=== PATIENT | female | born 1970 | race Caucasian/White ===

== ENCOUNTER 2024-05-15 14:00 | Inpatient (IN) | payer BC, SELFPAY ==
[2024-05-15] VITALS (7 sets, daily range): BP systolic 108–141; BP diastolic 65–91; BMI 63.3
--- NOTE | 2024-05-15 12:23 | ED.GENMED ---
History of Present Illness
General
Chief Complaint: Catheter/Tube Problem
Source: patient
Time Seen by Provider: 05/15/24 12:04
History of Present Illness
History of Present Illness:
Patient sent to the emergency room from [facility] for concern of infection around her dialysis port. Patient states she feels at her recent baseline. Patient began receiving dialysis in September. Dialysis was initiated at [facility] where her
dialysis port was placed. She is unsure why she has not yet had any procedures to develop a AV fistula. Patient denies any fever.
Phy Exam
Physical Exam
Physical Exam:
General: Awake, Alert, Oriented X3. Very high BMI. Appears chronically ill but stable
Vitals: unremarkable
Head: Atraumatic
Eyes: Pupils equal, EOMI
Throat: Airway intact, no exudates, dry mucosa
Neck: Trachea midline
Chest: rigth sided tunnled dialysis cath with surrounding erythema and signicatn tenderness to palpation
Lungs: Clear and equal b/l
Heart: Regular rate, no murmurs
Abd: Soft, Nontender, No pulsatile mass
Neuro: Nonfocal
Skin: Warm, dry, eczematous rash
Extremities: pulses equal b/l, no edema
Sepsis
Sepsis Screening
Sepsis Assessment: Sepsis Ruled Out
Sepsis Screen
Sepsis Screen: Sepsis Ruled Out
Date: 05/15/24
Time: 14:03
Course
Orders/Labs/Results
Orders:
Orders
05/15/24 12:24
Electrocardiogram (*1) Urgent
Reason for Study: QTc Monitoring
EKG- Treatment ONCE
05/15/24 13:15
Basic Metabolic Panel Urgent
Complete Blood Count/With Diff Urgent
Magnesium Urgent
Phos [Phosphorus] Urgent
Blood Culture Routine
DIANE Source: Blood/Venous
Specimen Description:
05/15/24 13:18
Vancomycin [Vancocin] 1,500 mg 0.9% Sodium Chloride 500 ml [Nss] 500 ml IV NOW
05/15/24 13:27
Admit/Transfer Patient As Directed
Co-Sign Provider:
Level of Care: Inpatient admission
Assign to:: Telemetry
Physician / Group: mt
Diagnosis: MRSA wound infection
Reason for Telemetry: Arrhythmia
Date to Stop Telemetry: 05/18/24
Time to Stop Telemetry: 11:00
Reason for Hospitalization: MRSA wound infection
Expected length of stay greater than two midnights?: Yes
ELOS- Estimated Length of Stay in days: 3
I certify the patient meets the requirements for IP care: Yes
PRN Pain Medication Management As Directed
May give lesser potent ordered pain med per pt: Yes
preference::
Protocol:: Medication orders for pain may be administered in a
manner that supports deferring to patient preference
when the pt is:
- Requesting an ordered lesser potent pain medication.
Least to most potent pain medications are defined
as: acetaminophen < NSAID < tramadol < opioids
(morphine, oxycodone, hydromorphone).
- Requesting a lesser dose of the same medication IF
ORDERED.
- Requesting a less intrusive route of administration
if both routes are prescribed by the provider (PO <
IV).
05/15/24 13:28
Code Status As Directed
Resuscitation Status: Do not resuscitate
Reached after discussion with pt or family/Healthcare POA: Yes
05/15/24 13:29
DNR Bracelet Application ONCE
05/15/24 13:49
Blood Culture Routine
DIANE Source: Blood/Venous
Specimen Description:
05/18/24 11:00
DC Protocol for Telemetry ONCE
Abnormal Lab Results
05/15/24
13:15
RBC 4.00 L 10^6/uL
(4.20-5.40)
Hgb 11.5 L g/dL
(12.0-16.0)
MCHC 30.9 L g/dL
(33.0-37.0)
RDW 15.9 H %
(11.5-14.5)
Absolute Lymphs (auto) 1.0 L 10^3/uL
(1.2-3.4)
Immature Gran % 0.6 H %
(0-0.5)
Lymphocytes % 13.7 L %
(20.5-51.1)
Eosinophils % 9.1 H %
(0-6)
05/15/24 13:15
Vital Signs
Initial and Last Documented VS:
Initial Vital Signs
Temp Pulse Resp BP Pulse Ox
96.3 F L 101 20 127/78 98
05/15/24 12:02 05/15/24 12:02 05/15/24 12:02 05/15/24 12:02 05/15/24 12:02
Last Documented Vital Signs
Temp Pulse Resp BP Pulse Ox
96.3 F L 98 20 129/91 98
05/15/24 12:02 05/15/24 13:15 05/15/24 12:02 05/15/24 13:00 05/15/24 13:15
MDM/Problems Addressed
Differential Diagnosis Includes:
Cutaneous infection around port, actual infected port, bacteremia
MDM/Problems Addressed:
Patient arrives form reviewed with report of a MRSA infection at the site of her tunneled dialysis catheter. She is afebrile and feels well. I communicated with interventional radiology to see if they would be able to replace this port today. IR
states they would be uncomfortable placing a tunneled catheter at this time without negative blood cultures. They could place a temporary dialysis catheter if he were to need urgent dialysis but they would prefer to hold off on putting any catheter
until she has negative cultures. Currently the patient does not seem to have indications for emergent dialysis. She is not hypoxic or in respiratory distress. She seems to get a baseline. Labs are pending. Patient will require hospitalization
and so I discussed with the hospitalist.
*Pulse Oximetry
Patient hypoxic: no
*Critical Care Note
Total Time (30-74mins, 75-104mins- exclusive of procedures): Not Applicable
ED Attending Note
-
Portions of this chart may have been created with voice recognition software.� Occasional wrong word or��sound alike� substitutions may have occurred due to the inherent limitations of voice recognition software.
Discharge Plan
Departure
Patient Disposition: Admit
Date of Disposition: 05/15/24
Time of Disposition: 13:12
Admit to: Med/Surg
Presentation/result/management discussed w/ accepting MD/DO: Hospitalist
Condition: Fair
Discharge Problem:
Infection of hemodialysis catheter
Interventions
Interventions:
*Risk Screen - Suicide Last Done: 05/15/24 12:12
*General Assessment Last Done: 05/15/24 12:12
*Neglect/Abuse Screening Last Done: 05/15/24 12:12
ED- Fall Risk Assessment Last Done: 05/15/24 12:14
*ED COVID-19 Vaccine History Last Done: 05/15/24 12:12
LA-Kiofya-Uyzjcntrxn Assessment Last Done: 05/15/24 12:15
ED-Female Genitourinary Assessment Last Done: 05/15/24 12:15
--- NOTE | 2024-05-15 13:04 | HPS.HSE ---
Family Physician
-
Family Physician:
Chief Complaint
-
Right chest wall port infection
History of Present Illness
54-year-old with past medical history for A-fib, hypertension, end-stage renal disease on dialysis Monday, anemia, CHF, hypothyroidism, hide type 2 diabetes, depression, GERD presented to us with right chest wall port infection.
Patient stated he was noted to have red and drainage at the site a week ago. they cultured it and noted to have MRSA at the port site. patient was started on Cipro for past two days. denied fever, chills, chest pain, sob. denied FRANK, dizzy or
syncope. denied abdominal pain,n,v,d. denied dysuria or hematuria.
She was noted to left lower extremities redness, which is chronic for her
Medical History
Past Medical History
Past Medical History: Reports Other
Additional Past Medical History:
A-fib
Hypertension
End-stage renal disease
Anemia
CHF
Hypothyroidism
Type 2 diabetes
Depression
GERD
Past Surgical History: Reports None
Social History
Tobacco: Non-smoker
Alcohol: None
Drug: None
Personal: Single
Living: [facility]
Family History
Family History: Not pertinent
Allergies / Home Medications
Allergies reflects when Allergies were last updated in [facility].
Home Medications with original date entered in [facility]
Allergy/Medication List:
Allergies
Allergy/AdvReac Type Severity Reaction Status Date / Time
No Known Allergies Allergy Unverified 05/15/24 12:12
Review of Systems
-
Constitutional: Reports No Symptoms
EENT: Reports No Symptoms
Respiratory: Reports No Symptoms
Cardiac: Reports No Symptoms
Abdomen/GI: Reports No Symptoms
: Reports No Symptoms
Musculoskeletal: Reports No Symptoms
Skin: Reports Other (right chest wall port site red)
Neurological: Reports No Symptoms
Endocrine: Reports No Symptoms
Hematologic/Lymphatic: Reports No Symptoms
Psych: Reports No Symptoms
Physical Exam
Vital Signs
Vital Signs
Temp Pulse Resp BP Pulse Ox
96.3 F L 101 20 127/78 98
05/15/24 12:02 05/15/24 12:02 05/15/24 12:02 05/15/24 12:02 05/15/24 12:02
Physical Exam
General: Well Developed, Well Nourished and No Apparent Distress
HEENT: NormoCephalic, Moist mucous membranes and Atraumatic
Respiratory: Clear
Cardiac: S1/S2 and Regular Rhythm; No Murmur or Rub
GI: Soft, Non Tender, Non Distended and Normal Bowel Sounds; No Organomegaly
Rectal: Deferred by Provider
Musculoskeletal: No Clubbing, No Cyanosis and No Edema
Skin: Other (right chest wall port site red)
Neuro: AO x 3 and Nonfocal/grossly intact
Psych: Calm
Data Reviewed
-
Lab Data: Labs Reviewed by me
Impression/Plan
-
# Positive wound culture on left tunneled dialysis cath
#MRSA
-Blood cultures sent from ER, once resulted consult IR
-vancomycin continued
-Tylenol prn for pain
-ID consulted
#hxt of atrial fib
-On Cardizem
-hold Eliquis
#History of end-stage renal disease on dialysis Monday#
-Nephrology consulted
# History of congestive heart failure
#chronic respiratory failure on 2-3l
-Continue supplemental oxygen to keep sat greater than 92
-Wean as tolerated
-Patient is not in exacerbation
-Daily weight
-Torsemide continue
# Hypothyroidism
-Will continue Synthroid
# Type 2 diabetes
-Sliding scale
-CHO diet
-Lantus 12 units at bedtime
# Depression
-Duloxetine continued
# GERD
-PPI
# DVT prophylaxis
-SCD
# CODE STATUS
-DNR
# DVT prophylaxis
-Heparin subcu
[2024-05-15] MEDS: VANCOCIN 530 MG IV (13:27)
[2024-05-15 13:45] LABS: % Eosinophils 9.1 % (0-6); % Immature Granulocytes 0.6 % (0-0.5); % Lymphocytes 13.7 % (20.5-51.1); % Monocytes 5.3 % (1.7-9.3); % Neutrophils 70.3 % (42.2-75.2); Absolute Basophils 0.1 10^3/uL (0-0.2); Absolute Eosinophils 0.7 10^3/uL (0-0.7); Absolute Monocytes 0.4 10^3/uL (0.1-0.6); Hematocrit 37.2 % (37.0-47.0); Hemoglobin 11.5 g/dL (12.0-16.0); Mean Corp Hgb Conc. 30.9 g/dL (33.0-37.0); Mean Corpuscular Hgb 28.8 pg (27.0-31.0); Mean Platelet Volume 9.6 fL (7.4-10.4); Nucleated Red Blood Cells % 0 %; Platelet Count 143 10^3/uL (130-400); Red Cell Dist. Width 15.9 % (11.5-14.5); White Blood Cell Count 7.1 10^3/uL (4.8-10.8)
--- NOTE | 2024-05-15 13:45 | CON.ID ---
Consultation
-
Date/Time Consultation Requested: May 15, 2024 1330
Date/Time Consultation Performed: May 15, 2024 1345
Requesting Provider: SCHUYLER Gibson
Performing Provider: Dr. Dana Beatty
Reason for Consultation: Dialysis catheter MRSA infection
Chief Complaint / Past History
Chief Complaint
Infected dialysis catheter
History of Present Illness
54 year old female with DM,, neuropathy, Afib, ESRD on HD via tunneled catheter initiated September 2023 at outside hospital who presented from [facility] today with positive MRSA from dialysis cath site. She noted redness around port last week without pain.
SNF took cx at cath site with neg cx. However, this week, cath site with edema and pain. Cath site swabbed for culture and she was started on cipro bid for which she had 5 doses. The swab cx resulted as MRSA and therefore she was sent to ED. Pt
denies fevers or chills. She tends to pick/scratch her skin but avoids the catheter site. In ED one set of blood culture sent and she was started on Vancomycin.
Past History
Additional Past Medical History:
DM
Neuropathy
ESRD on HD via tunnelled catheter
Chronic hypoxic respiratory failure on O2
Chronic hypotension on midodrine
Afib
dCHF
hypothyroidism
Class III obesity BMI 63
Depression
Ambulatory dysfunction
Past Surgical History: None
Allergy History:
No Known Allergies Allergy (Unverified 05/15/24 12:12)
Medications Reviewed: Yes
Current Antibiotics:
Vancomycin
Social History
Tobacco: Non-Smoker
Alcohol: None
Drug: None
Living: [facility])
Family History
Family History: Not Pertinent
Review of Systems
Review of Systems
General: Negative Fever, Chills or Change in Appetite
HEENT: Negative Sinus Problems or Headache
Cardiovascular: Negative Chest Pain
Respiratory: Negative Dyspnea or Cough
Gasteroenterology: Negative Nausea, Vomiting or Diarrhea
Endocrine: Negative Weakness
Neurological: Negative Dizziness
All systems: All other systems were reviewed and were negative
Vital Signs
Temp Pulse Resp BP Pulse Ox
96.3 F L 98 20 129/91 98
05/15/24 12:02 05/15/24 13:15 05/15/24 12:02 05/15/24 13:00 05/15/24 13:15
Physical Exam
Physical Exam
Constitutional: No Acute Distress and Obese
Eyes: No Conjunctival Hemorrhage and Sclera Anicteric
Cardiovascular: Regular Rate and S1/S2
Pulmonary: Clear
Gastrointestinal: Soft, Non Tender, Non Distended and Normal Bowel Sounds
Extremities: Venous Insufficiency (BLE)
Skin: Other (+excoriations on chest. )
Neurological: AO x 3
Lines: HD Cath (right chest wall + induration, tenderness, mild erythema, and light brown fluid drainage)
Microbiology Results
Micro:
05/15/24 13:15 Blood Culture - Pending
Blood/Venous
Assessment / Plan
# HD catheter site infection.
# ESRD on HD MWF
# DM
- Outpatient cath site swab reportedly +MRSA. Obtain outside culture result.
- One set of blood cx ordered in ED, pending
- Received Vancomycin x 1
- Placed second set of blood cx now.
- DC catheter and culture tip
- blood cx positive, TTE.
-Continue Vancomycin for now.
Care Review
Plan reviewed with: Physician and Other Provider (Denise PAYAN)
[2024-05-15 14:01] LABS: Blood Urea Nitrogen 36 mg/dl (7-17); Calcium 9.4 mg/dl (8.4-10.2); Carbon Dioxide 31 mmol/L (22-30); Chloride 97 mmol/L (98-107); Estimated Creatinine Clearance 29 ml/min; Glucose 133 mg/dl (70-99); Magnesium 2.4 mg/dl (1.6-2.3); Phosphorus 5.2 mg/dl (2.5-4.5); Potassium 4.8 mmol/L (3.5-5.1); Sodium 133 mmol/L (135-145)
--- NOTE | 2024-05-15 14:10 | W.PN.UPDATE ---
Update Note
Progress Note Update
This is an addendum to the H&P written by�Denise Germain on�05/15/2024.� Patient seen examined�independently�with DESKTOP ADMINISTRATOR.
54-year-old female past medical history of ESRD on hemodialysis Monday, Monday, Monday, atrial fibrillation on Eliquis, hypertension, CHF with chronic hypoxic respiratory failure on 2 to 3 L, hypothyroidism, diabetes, anxiety/depression, GERD,
anemia presenting with infected dialysis port for the past week.� There has been some redness and pain at the site with some discharge.� She had wound culture growing MRSA.� She was started on ciprofloxacin 2 days ago.
She last had dialysis on Monday.� Scheduled for dialysis today.� Blood cultures pending, vancomycin started.� ID consulted.� Need to rule out bacteremia before IR would potentially remove port.� Nephrology consulted.� Hold Eliquis.
--- NOTE | 2024-05-15 14:28 | W.CON.NEPH ---
Consultation
-
Date/Time Consultation Requested: 05/15/2024 12 PM
Date/Time Consultation Performed: 05/15/2024 2:30 PM
Requesting Provider: Dr. Kim
Performing Provider: Dr. Vela
Reason for Consultation: ESRD
Medical History
-
Chief Complaint: Catheter infection
History of Present Illness:
This is a 54-year-old female who has not been to the [facility] previously. She has longstanding diabetes mellitus type 2 treated with insulin therapy. She states that she has never been told about kidney disease previously. A couple of
months ago she had issues with falling and weakness and was taken to [facility] from her home in [place]. She is not sure if any diagnosis was made but she was sent to acute rehab after that admission. This was done at [facility]
in [place]. After about a month of acute rehab she was downgraded to subacute and was transferred to [facility] in [place]. She says that she was only there for a few weeks before she had an apparent hypoxic episode and she woke up in [place]
[facility] on the ventilator. She is not sure what otherwise transpired but she was told that she had become ESRD and had to start dialysis. A catheter was placed. She was then sent to [facility] in [place] given subacute rehab with
dialysis onsite. In the last week it was felt that her catheter exit site was possibly infected. She was started on ciprofloxacin at 5 mg twice daily. She was then sent to the emergency room today because of failure of improvement. We are asked
assist in INR dialysis which she did not receive today. She still takes diuretic therapy as well as compensatory potassium supplementation. She is now also on high doses of midodrine [id number] for hypotension.
Past Medical History
ESRD, hypertension now hypotension, anemia, obesity, hypothyroidism, diabetes mellitus type 2
Denies surgery other than catheter placement
Social History
Tobacco: Non-Smoker
Alcohol: None
Family History
Uncle on dialysis
Family History: Diabetes
Allergies / Home Medications
Allergy/AdvReac Type Severity Reaction Status Date / Time
No Known Allergies Allergy Unverified 05/15/24 12:12
�Medication �Instructions �Recorded �Confirmed �Type
acetaminophen 325 mg tablet 650 mg PO Q6HPRN PRN mild pain 05/15/24 05/15/24 History
(Tylenol)
apixaban 5 mg tablet (Eliquis) 5 mg PO BID 05/15/24 05/15/24 History
bisacodyl 10 mg rectal suppository 10 mg TN DAILYPRN PRN if no bm 05/15/24 05/15/24 History
(Dulcolax (bisacodyl)) aftr mom
bisacodyl 5 mg tablet,delayed 10 mg PO DAILY 05/15/24 05/15/24 History
release (Dulcolax (bisacodyl))
cetirizine 10 mg tablet (Zyrtec) 10 mg PO HS 05/15/24 05/15/24 History
ciprofloxacin HCl 500 mg tablet 500 mg PO BID 05/15/24 05/15/24 History
diltiazem HCl 120 mg capsule,24 120 mg PO DAILY 05/15/24 05/15/24 History
hr,extended release
docusate sodium 100 mg capsule 100 mg PO BID 05/15/24 05/15/24 History
(Colace)
duloxetine 60 mg capsule,delayed 60 mg PO DAILY 05/15/24 05/15/24 History
release sprinkle
famotidine 20 mg tablet (Pepcid) 20 mg PO HS 05/15/24 05/15/24 History
hydrocortisone 2.5 % topical cream 1 applic topical BID arms and chest 05/15/24 05/15/24 History
hydroxyzine HCl 25 mg tablet 25 mg PO TID 05/15/24 05/15/24 History
insulin glargine 100 unit/mL (3 12 unit SC HS 05/15/24 05/15/24 History
mL) subcutaneous pen (Lantus
Solostar U-100 Insulin)
levothyroxine 75 mcg tablet 275 mcg PO DAILY 05/15/24 05/15/24 History
(Synthroid)
lidocaine 4 % topical patch 1 patch topical DAILY left shoulder 05/15/24 05/15/24 History
melatonin 3 mg tablet 3 mg PO HS 05/15/24 05/15/24 History
midodrine 10 mg tablet 10 mg PO MOWEFR 05/15/24 05/15/24 History
midodrine 10 mg tablet 10 mg PO TID 05/15/24 05/15/24 History
nystatin 100,000 unit/gram topical 1 applic topical TID breats, 05/15/24 05/15/24 History
powder belly, groin
ondansetron HCl 8 mg tablet 8 mg PO Q6HPRN PRN nausea 05/15/24 05/15/24 History
potassium chloride 10 mEq 20 meq PO HS 05/15/24 05/15/24 History
tablet,extended release
pregabalin 75 mg capsule (Lyrica) 75 mg PO Q48H 05/15/24 05/15/24 History
semaglutide 0.25 mg or 0.5 mg (2 0.25 mg SC FR 05/15/24 05/15/24 History
mg/3 mL) subcutaneous pen injector
(Ozempic)
sennosides 8.6 mg tablet (senna) 17.2 mg PO DAILY 05/15/24 05/15/24 History
simethicone 125 mg capsule (Gas-X 125 mg PO Q6HPRN PRN gas pain 05/15/24 05/15/24 History
Extra Strength)
sorbitol 70 % solution 30 ml PO DAILYPRN PRN constipation 05/15/24 05/15/24 History
torsemide 20 mg tablet 20 mg PO DAILY 05/15/24 05/15/24 History
tramadol 25 mg tablet 25 mg PO Q6HPRN PRN moderate pains 05/15/24 05/15/24 History
Review of Systems
-
No chest pain, no shortness of breath
Some pain around the catheter site
Leg weakness
All other systems: Negative unless noted
Physical Exam
Vital Signs
Vital Signs
Temp Pulse Resp BP Pulse Ox
96.3 F L 98 20 129/91 98
05/15/24 12:02 05/15/24 13:15 05/15/24 12:02 05/15/24 13:00 05/15/24 13:15
Lab Results
WBC 7.1 10^3/uL (4.8-10.8) 05/15/24 13:15
RBC 4.00 10^6/uL (4.20-5.40) L 05/15/24 13:15
Hgb 11.5 g/dL (12.0-16.0) L 05/15/24 13:15
Hct 37.2 % (37.0-47.0) 05/15/24 13:15
Plt Count 143 10^3/uL (130-400) 05/15/24 13:15
Sodium 133 mmol/L (135-145) L 05/15/24 13:15
Potassium 4.8 mmol/L (3.5-5.1) 05/15/24 13:15
Chloride 97 mmol/L (98-107) L 05/15/24 13:15
Carbon Dioxide 31 mmol/L (22-30) H 05/15/24 13:15
BUN 36 mg/dl (7-17) H 05/15/24 13:15
Creatinine 3.5 mg/dL (0.6-1.0) H 05/15/24 13:15
eGFR 14.70 05/15/24 13:15
Glucose 133 mg/dl (70-99) H 05/15/24 13:15
Calcium 9.4 mg/dl (8.4-10.2) 05/15/24 13:15
Phosphorus 5.2 mg/dl (2.5-4.5) H 01/29/25 13:15
Physical Exam
Patient is awake alert oriented and in no distress. Mood and affect were pleasant, insight and judgment were good. Pupils are equal round and reactive to light, extraocular movements are intact, sclera were anicteric. Hearing was normal, ears and
nose are intact. Oropharynx was clear. Neck was supple with trachea midline and no thyromegaly. Heart was regular rate and rhythm without rubs. Lower extremities with 1+ edema. Lungs were clear to auscultation bilaterally and with normal
excursion. Abdomen was soft, nontender, with normal active bowel sounds, and no hepatosplenomegaly. Skin was with erythema in the lower legs and with normal turgor. Catheter exit site mildly erythematous, no fluctuance. Slightly tender to palpation
Data Reviewed
-
Medical Tests (Nuc Med, Echo etc): Image Personally Visualized and interpreted (EKG on 05/15/2024 by my read shows atrial fibrillation right axis deviation)
Labs: Labs Reviewed by me
Old Records: Requested
Assessment/Plan
-
Assessment
ESRD
A-fib
Hypotension
Diabetes mellitus type 2
Hypothyroidism
Obesity
Catheter exit site infection
Plan
Await cultures
Empiric antibiotics
Will arrange for dialysis in the morning.
Can pull CVC after dialysis. Then would require temporary CVC late Monday for dialysis on Monday
[2024-05-15 16:43] LABS: Glucose - Point of Care 131 mg/dl (70-99)
--- NOTE | 2024-05-15 16:48 | PHA.VAN.IN ---
Assessment
- Assessment
Renal Function: Patient has ESRD, on chronic Hemodialysis
Hemodialysis Schedule: MWF
Concomitant Antimicrobials: NONE
Plan
- Plan
Initial / Loading Dose: 1500MG
Maintenance Regimen: DOSING BY RANDOM LEVEL
Monitoring: RANDOM VANCOMYCIN LEVEL 05/16/24 AM
Pharmacokinetics Vancomycin I
- -
Patient Age: 54
Patient Sex: Female
Vancomycin Day #: 1
Indication: Skin And Soft Tissue (HD PORT )
Requesting Provider: SHAQ
Height / Weight:
Height 5 ft 5 in
Actual Weight 172.6 kg
- Vital Signs / Lab Results
Temp Pulse Resp BP Pulse Ox
97.9 F 93 16 141/65 98
05/15/24 15:53 05/15/24 15:53 05/15/24 15:53 05/15/24 15:53 05/15/24 15:53
Lab Results - Hematology
05/15/24
13:15
WBC 7.1
Lab Results - Chemistry
05/15/24
13:15
BUN 36 H
Creatinine 3.5 H
Estimated Creat Clear
[2024-05-15] MEDS: ProAmatine PO (17:53)
[2024-05-15] MEDS: ATARAX 25 MG PO ×2 (17:53→22:18)
[2024-05-15] MEDS: LYRICA 75 MG PO (17:53)
[2024-05-15] MEDS: NOVOLOG FLEXPEN-LOW RESISTANCE SC (17:53)
[2024-05-15] MEDS: COLACE PO (20:40)
[2024-05-15 21:32] LABS: Glucose - Point of Care 113 mg/dl (70-99)
[2024-05-15] MEDS: PEPCID 20 MG PO (22:17)
[2024-05-15] MEDS: ZYRTEC 10 MG PO (22:17)
[2024-05-15] MEDS: MELATONIN 3 MG PO (22:17)
[2024-05-15] MEDS: LANTUS 0.12 UNITS SC (22:18)
[2024-05-15] MEDS: KCL 20 MEQ PO (22:18)
[2024-05-15] MEDS: DESENEX/MITRAZOL/ZEASORB 1 APPLIC TOPICAL (22:21)
[2024-05-16 03:00] VITALS: BP 113/73
[2024-05-16] MEDS: SYNTHROID 275 MCG PO (05:32)
[2024-05-16 06:00] VITALS: BMI 61.3
[2024-05-16 07:19] VITALS: BP 125/75
[2024-05-16 07:34] LABS: Glucose - Point of Care 105 mg/dl (70-99)
[2024-05-16] MEDS: ProAmatine 10 MG PO ×3 (08:18→16:45)
[2024-05-16] MEDS: NOVOLOG FLEXPEN-LOW RESISTANCE SC ×3 (08:21→17:50)
--- NOTE | 2024-05-16 08:52 | W.PN.HOSP.TC ---
Today's Communication/Plan
-
HD. IV antibiotics
Assessment / Plan
Assessment / Plan
Physical Exam
General: Well Developed, Well Nourished and No Apparent Distress
HEENT: NormoCephalic, Moist mucous membranes and Atraumatic
Respiratory: Clear
Cardiac: S1/S2 and Regular Rhythm; No Murmur or Rub
GI: Soft, Non Tender, Non Distended and Normal Bowel Sounds; No Organomegaly
Rectal: Deferred by Provider
Musculoskeletal: No Clubbing, No Cyanosis and No Edema
Skin: Other (right chest wall port site redness)
Neuro: AO x 3 and Nonfocal/grossly intact
Psych: Calm
A/P:
# HD catheter site infection
-Outpatient site swab positive MRSA. Obtaining OP medical record
-Follow-up blood cultures
-Plan for HD cath removal after dialysis and culture tip.
-Continue IV
-Appreciated ID consult
#hxt atrial fib, probably paroxysmal
-On Cardizem
-holding Eliquis
#History of end-stage renal disease on dialysis Monday#
-Nephrology consulted--> HD today
# History of chronic diastolic congestive heart failure
#chronic hypoxic respiratory failure on 2-3l
-Continue supplemental oxygen to keep sat greater than 92
-Wean as tolerated
-Patient is not in exacerbation
-Daily weight
-Torsemide continue
# Hypothyroidism
-Will continue Synthroid
# Type 2 diabetes
-Sliding scale
-CHO diet
-Lantus 12 units at bedtime
# Depression
-Duloxetine continued
# GERD
-PPI
# Hypotension
cont midodrine
# DVT prophylaxis
-SCD
# CODE STATUS
-DNR
# DVT prophylaxis
-Heparin subcu
Total time spent on today's encounter was 52 minutes which included time spent in counseling the patient/family regarding diagnosis and treatment plan as listed above, goals of care, and symptom management. Case was discussed with nursing staff,
specialists, and care coordinators/case management. All labs and imaging personally reviewed by me. Remainder the time spent in detailed review of previous records, lab data, imaging, and other medical provider documentation.
Anticipated Discharge: > 48 hours
Subjective/Interval History
-
Date of Service: May 16, 2024
Patient denies any nausea or vomiting. Receiving hemodialysis today. Afebrile.
Objective Data
-
Labs:
Laboratory Results
05/16/24 05/16/24
06:00 08:03
WBC Cancelled Pending
Hgb Cancelled Pending
Hct Cancelled Pending
Plt Count Cancelled Pending
Sodium Cancelled Pending
Potassium Cancelled Pending
Chloride Cancelled Pending
Carbon Dioxide Cancelled Pending
BUN Cancelled Pending
Creatinine Cancelled Pending
Glucose Cancelled Pending
Calcium Cancelled Pending
Vital Signs:
Vital Signs
Temp Pulse Resp BP Pulse Ox
97.5 F 75 16 147/86 100
05/16/24 07:19 05/16/24 08:18 05/16/24 07:19 05/16/24 08:18 05/16/24 07:19
I&O
05/15/24 05/16/24 05/17/24
06:59 06:59 06:59
Intake Total 960 / 960
Balance 960 / 960
[2024-05-16 08:54] LABS: Blood Urea Nitrogen 44 mg/dl (7-17); Calcium 9.2 mg/dl (8.4-10.2); Carbon Dioxide 30 mmol/L (22-30); Chloride 97 mmol/L (98-107); Estimated Creatinine Clearance 26 ml/min; Glucose 126 mg/dl (70-99); Potassium 4.8 mmol/L (3.5-5.1); Sodium 135 mmol/L (135-145); eGFR 13.32
[2024-05-16 08:58] LABS: Vancomycin Random 12.4 ug/ml
[2024-05-16 09:02] LABS: Hematocrit 36.1 % (37.0-47.0); Hemoglobin 10.9 g/dL (12.0-16.0); Mean Corp Hgb Conc. 30.2 g/dL (33.0-37.0); Mean Corpuscular Hgb 28.1 pg (27.0-31.0); Mean Platelet Volume 9.8 fL (7.4-10.4); Platelet Count 144 10^3/uL (130-400); Red Blood Cell Count 3.88 10^6/uL (4.20-5.40); Red Cell Dist. Width 15.6 % (11.5-14.5); White Blood Cell Count 7.1 10^3/uL (4.8-10.8)
--- NOTE | 2024-05-16 09:35 | W.PN.NEPH.HD ---
Assessment
-
Seen on HD, no complaints, vital signs stable, Access good.
dc cvc after HD
Progress Note - Hemodialysis
-
Date of Service: May 16, 2024
Duration: 45 minutes and 3 hours
Potassium Bath: 2
Calcium Bath: 2.5
Opti-Dialyzer: 160
Ultrafiltration: Other (3kg)
Blood Flow: 400
Dialysate Flow: 600
Heparin: 500x2
EPO: 0
[2024-05-16] MEDS: HEPARIN 500 UNITS IV ×2 (09:37→09:38)
--- NOTE | 2024-05-16 10:24 | PHA.VAN.FU ---
Vancomycin Assessment / Plan
- Assessment
Renal Function: SCR Increasing
Hemodialysis Schedule: MWF
Last Hemodialysis performed: 05.16.24
WBC's are: WNL
In the past 24 hrs, patient has been: Afebrile
- Assessment - Therapeutic Drug Monitoring
Random Level: 12.4 on 05.16
- Dosing Plan
Dosing by Level: Re-dose today (vancomycin 750 mg x 1 after hemodialysis)
- Monitoring Plan
Random Level: 1.31 @0600
- Follow Up
Pharmacy will continue to follow.
Vancomycin Follow UP
- -
Patient Age: 54
Patient Sex: Female
Vancomycin Day #: 2
Indication: Skin And Soft Tissue (HD PORT )
Requesting Provider: SHAQ
Height / Weight:
Height 5 ft 5 in
Actual Weight 167.177 kg
- Vital Signs / Lab Results
Temp Pulse Resp BP Pulse Ox
97.5 F 75 16 147/86 100
05/16/24 07:19 05/16/24 08:18 05/16/24 07:19 05/16/24 08:18 05/16/24 07:19
Lab Results - Hematology
05/15/24 05/16/24 05/16/24
13:15 06:00 08:03
WBC 7.1 Cancelled 7.1
Lab Results - Chemistry
05/15/24 05/16/24 05/16/24
13:15 06:00 08:03
BUN 36 H Cancelled 44 H
Creatinine 3.5 H Cancelled 3.8 H
Estimated Creat Clear 29 Cancelled 26
Therapeutic Drug Monitoring
Random Vancomycin 12.4 ug/ml 05/16/24 08:03
[2024-05-16 10:25] LABS: Glycohemoglobin (HgbA1c) 5.1 % (4.0-5.6)
[2024-05-16 10:43] VITALS: BP 144/81
[2024-05-16 11:47] LABS: Glucose - Point of Care 111 mg/dl (70-99)
[2024-05-16] MEDS: VANCOCIN 150 IV (13:13)
[2024-05-16] MEDS: DESENEX/MITRAZOL/ZEASORB 1 APPLIC TOPICAL ×3 (13:15→22:12)
[2024-05-16] MEDS: ATARAX 25 MG PO ×3 (13:19→22:11)
[2024-05-16] MEDS: COLACE 100 MG PO ×2 (13:19→22:11)
[2024-05-16] MEDS: CARDIZEM CD 120 MG PO (13:19)
[2024-05-16] MEDS: DEMADEX 20 MG PO (13:20)
[2024-05-16] MEDS: CYMBALTA DELAYED RELEASE 60 MG PO (13:20)
[2024-05-16] MEDS: DULCOLAX 10 MG PO (13:20)
[2024-05-16] MEDS: LIDOCAINE 4% PATCH 1 PATCH TOPICAL (13:20)
[2024-05-16] MEDS: SENOKOT 17.2 MG PO (13:21)
--- NOTE | 2024-05-16 14:44 | W.PN.ID1 ---
Date of Service
Date of Service: May 16, 2024
Today's Communication
Continue Vancomycin.
Assessment / Plan
# HD catheter site infection.
# ESRD on HD MWF
# DM
- Outpatient cath site swab reportedly +MRSA. Obtain outside culture result.
-Follow blood cx's.
- For HD cath removal today after dialysis. Cx tip.
-Continue Vancomycin.
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
DM
Neuropathy
ESRD on HD via tunnelled catheter
Chronic hypoxic respiratory failure on O2
Chronic hypotension on midodrine
Afib
dCHF
hypothyroidism
Class III obesity BMI 63
Depression
Ambulatory dysfunction
Chief Complaint
-: Other (HD cath infection)
Subjective / Review of Systems
No new complaints.
Vital Signs / Physical Exam
Vital Signs
Vital Signs
Temp Pulse Resp BP Pulse Ox
97.5 F 92 16 141/72 100
05/16/24 07:19 05/16/24 13:19 05/16/24 10:43 05/16/24 13:19 05/16/24 07:19
Physical Exam
Constitutional: No Acute Distress and Comfortable
Cardiovascular: Regular Rate and S1/S2
Pulmonary: Clear
Gastrointestinal: Soft, Non Tender and Non Distended
Lines: HD Cath (RCW, wet + induration, erythema)
Objective Data
Lab Data
Lab Results
05/16/24 08:03
05/16/24 08:03
Estimated Creat Clear 26 ml/min 05/16/24 08:03
Most recent labs reviewed.
Micro Results:
05/16/24 14:10 Catheter Tip Culture - Pending
Dialysis Line
05/15/24 13:15 Blood Culture - Preliminary
Blood/Venous No Growth in 24 hours- Final report to follow
05/15/24 15:33 Blood Culture - Pending
Blood/Venous
[2024-05-16 14:47] VITALS: BMI 61.3
--- NOTE | 2024-05-16 15:00 | PTCARENOTE ---
Pt returned from IR via bed. Rt chest wall dressing dry and intact. Pt oriented to surroundings with call bed in reach.
[2024-05-16 15:26] VITALS: BP 122/77
[2024-05-16 17:33] LABS: Glucose - Point of Care 108 mg/dl (70-99)
[2024-05-16 18:57] LABS: Hepatitis B Surface Antigen Negative (Negative)
[2024-05-16 19:56] VITALS: BP 99/76
[2024-05-16 21:57] LABS: Glucose - Point of Care 118 mg/dl (70-99)
[2024-05-16] MEDS: ZYRTEC 5 MG PO (22:11)
[2024-05-16] MEDS: MELATONIN 3 MG PO (22:12)
[2024-05-16] MEDS: LANTUS 0.12 UNITS SC (22:12)
[2024-05-16] MEDS: KCL 20 MEQ PO (22:12)
[2024-05-16 23:39] VITALS: BP 117/77
[2024-05-17] VITALS (8 sets, daily range): BP systolic 92–144; BP diastolic 66–94; BMI 60.6
[2024-05-17] MEDS: SYNTHROID 275 MCG PO (05:35)
[2024-05-17 06:42] LABS: Hematocrit 37.4 % (37.0-47.0); Hemoglobin 11.2 g/dL (12.0-16.0); Mean Corp Hgb Conc. 29.9 g/dL (33.0-37.0); Mean Corpuscular Hgb 28.1 pg (27.0-31.0); Mean Platelet Volume 9.8 fL (7.4-10.4); Platelet Count 141 10^3/uL (130-400); Red Blood Cell Count 3.98 10^6/uL (4.20-5.40); Red Cell Dist. Width 15.5 % (11.5-14.5); White Blood Cell Count 6.4 10^3/uL (4.8-10.8)
[2024-05-17 06:55] LABS: Glucose - Point of Care 100 mg/dl (70-99)
[2024-05-17 06:59] LABS: Vancomycin Random 14.7 ug/ml
[2024-05-17 07:00] LABS: Blood Urea Nitrogen 26 mg/dl (7-17); Calcium 8.7 mg/dl (8.4-10.2); Carbon Dioxide 30 mmol/L (22-30); Chloride 96 mmol/L (98-107); Estimated Creatinine Clearance 38 ml/min; Glucose 102 mg/dl (70-99); Potassium 4.3 mmol/L (3.5-5.1); Sodium 134 mmol/L (135-145); eGFR 21.01
[2024-05-17] MEDS: NOVOLOG FLEXPEN-LOW RESISTANCE SC ×3 (08:21→17:20)
--- NOTE | 2024-05-17 09:26 | W.PN.HOSP.TC ---
Addendum entered and electronically signed by Arnol Mendoza MD 05/17/24 16:12:
Localized infection only, without systemic illness, from HD catheter site infection
No evidence of sepsis
Original Note:
Today's Communication/Plan
-
New catheter by IR. HD today.
Assessment / Plan
Assessment / Plan
Physical Exam
General: Well Developed, Well Nourished and No Apparent Distress
HEENT: NormoCephalic, Moist mucous membranes and Atraumatic
Respiratory: Clear
Cardiac: S1/S2 and Regular Rhythm; No Murmur or Rub
GI: Soft, Non Tender, Non Distended and Normal Bowel Sounds; No Organomegaly
Rectal: Deferred by Provider
Musculoskeletal: No Clubbing, No Cyanosis and No Edema
Skin: Other (right chest wall port site redness)
Neuro: AO x 3 and Nonfocal/grossly intact
Psych: Calm
A/P:
# HD catheter site infection
-Outpatient site swab positive MRSA. Obtaining OP medical record
-Follow-up blood cultures
-S/P HD cath removal after dialysis yesterday and culture tip on 05/16.
-Status post new catheter on the left side today on 05/17.
-Continue IV Abx
-Appreciated ID consult
#hxt atrial fib, probably paroxysmal
-On Cardizem
-Will resume Eliquis tonight-discussed with nephrology. We can hold it later on when ready to place a tunneled catheter
#History of end-stage renal disease on dialysis Monday#
-Nephrology consulted--> HD today again per nephrology
# History of chronic diastolic congestive heart failure
#chronic hypoxic respiratory failure on 2-3l
-Continue supplemental oxygen to keep sat greater than 92
-Wean as tolerated
-Patient is not in exacerbation
-Daily weight
-Torsemide continue
# Hypothyroidism
-Will continue Synthroid
# Type 2 diabetes
-Sliding scale
-CHO diet
-Lantus 12 units at bedtime
# Depression
-Duloxetine continued
# GERD
-PPI
# Hypotension
cont midodrine
# DVT prophylaxis
-SCD
# CODE STATUS
-DNR
# DVT prophylaxis
-Heparin subcu
Total time spent on today's encounter was 52 minutes which included time spent in counseling the patient/family regarding diagnosis and treatment plan as listed above, goals of care, and symptom management. Case was discussed with nursing staff,
specialists, and care coordinators/case management. All labs and imaging personally reviewed by me. Remainder the time spent in detailed review of previous records, lab data, imaging, and other medical provider documentation.
Anticipated Discharge: > 48 hours
Subjective/Interval History
-
Date of Service: May 17, 2024
Denies any nausea or vomiting. Afebrile
Objective Data
-
Labs:
Laboratory Results
05/17/24
06:06
WBC 6.4
Hgb 11.2 L
Hct 37.4
Plt Count 141
Sodium 134 L
Potassium 4.3
Chloride 96 L
Carbon Dioxide 30
BUN 26 H
Creatinine 2.6 H
Glucose 102 H
Calcium 8.7
Vital Signs:
Vital Signs
Temp Pulse Resp BP Pulse Ox
97.6 F 106 16 131/86 98
05/17/24 08:00 05/17/24 08:00 05/17/24 08:00 05/17/24 08:00 05/17/24 08:00
I&O
05/16/24 05/17/24 05/18/24
06:59 06:59 06:59
Intake Total 960 / 960 720 / 720
Balance 960 / 960 720 / 720
[2024-05-17] MEDS: SENOKOT 17.2 MG PO (10:27)
[2024-05-17] MEDS: CARDIZEM CD 120 MG PO (10:30)
[2024-05-17] MEDS: CYMBALTA DELAYED RELEASE 60 MG PO (10:30)
[2024-05-17] MEDS: DULCOLAX 10 MG PO (10:30)
--- NOTE | 2024-05-17 10:30 | PTCARENOTE ---
Pt received from IR, VSS, original procedural dressing in place and CDI. Pt. resting comfortably in bed awaiting dialysis.
[2024-05-17] MEDS: DEMADEX 20 MG PO (10:40)
[2024-05-17] MEDS: DESENEX/MITRAZOL/ZEASORB 1 APPLIC TOPICAL ×3 (10:40→21:31)
[2024-05-17] MEDS: COLACE 100 MG PO ×2 (10:40→21:31)
[2024-05-17] MEDS: ATARAX 25 MG PO ×3 (10:41→21:30)
[2024-05-17] MEDS: LIDOCAINE 4% PATCH 1 PATCH TOPICAL (10:41)
[2024-05-17] MEDS: ProAmatine PO (10:45)
[2024-05-17] MEDS: ProAmatine 10 MG PO ×3 (10:45→17:21)
[2024-05-17 11:45] LABS: Glucose - Point of Care 122 mg/dl (70-99)
[2024-05-17] MEDS: HEPARIN 500 UNITS IV ×2 (12:25→13:25)
[2024-05-17] MEDS: HEPARIN 500 UNITS INTRACATH (12:25)
--- NOTE | 2024-05-17 13:02 | PHA.VAN.FU ---
Vancomycin Assessment / Plan
- Assessment
Renal Function: SCR Increasing (2.6)
Hemodialysis Schedule: MWF
Last Hemodialysis performed: .30 and 05.17
WBC's are: WNL
In the past 24 hrs, patient has been: Afebrile (14.7)
- Dosing Plan
Dosing by Level: Re-dose today (vancomycin 750 mg x 1 post-dialysis)
- Monitoring Plan
Random Level: 2.1 @0600
- Follow Up
Pharmacy will continue to follow.
Vancomycin Follow UP
- -
Patient Age: 54
Patient Sex: Female
Vancomycin Day #: 3
Indication: Skin And Soft Tissue (HD PORT )
Requesting Provider: SHAQ
Height / Weight:
Height 5 ft 5 in
Actual Weight 165.062 kg
- Vital Signs / Lab Results
Temp Pulse Resp BP Pulse Ox
97.8 F 89 18 144/85 99
05/17/24 11:06 05/17/24 11:06 05/17/24 11:06 05/17/24 11:06 05/17/24 11:06
Lab Results - Hematology
05/15/24 05/16/24 05/16/24
13:15 06:00 08:03
WBC 7.1 Cancelled 7.1
05/17/24
06:06
WBC 6.4
Lab Results - Chemistry
05/15/24 05/16/24 05/16/24
13:15 06:00 08:03
BUN 36 H Cancelled 44 H
Creatinine 3.5 H Cancelled 3.8 H
Estimated Creat Clear 29 Cancelled 26
05/17/24
06:06
BUN 26 H
Creatinine 2.6 H
Estimated Creat Clear 38
Microbiology Results
05/16/24 14:10 Catheter Tip Culture - Preliminary
Dialysis Line Staphylococcus aureus
05/15/24 15:33 Blood Culture - Preliminary
Blood/Venous No Growth in 24 hours- Final report to follow
05/15/24 13:15 Blood Culture - Preliminary
Blood/Venous No Growth in 24 hours- Final report to follow
Therapeutic Drug Monitoring
Random Vancomycin 14.7 ug/ml 05/17/24 06:06
--- NOTE | 2024-05-17 14:14 | PN.CDI ---
CDI
- -
CDI:
Physician Documentation Request
Admit Date: 05/15/24 14:00
Dear Doctor Reji,
Please review the following and provide your response in the progress notes.
Clinical Indicators:
PN, 05/17
# HD catheter site infection
Selected Entries
05/15/24
12:02
Temp 96.3 F L
Pulse 101
Resp Rate 20
Blood pressure 127/78
Please clarify which of the following most accurately describes the status of the patient's infection:
Sepsis is/was present and is a clinical diagnosis based on (please include this additional support in the medical record)
Localized Infection Only, Without Systemic Illness
- indicate the site/source, such as HD catheter site infection/UTI, pneumonia etc.
Other(please specify)
Sepsis
- Systemic manifestations of infection, with 2 or more SIRS criteria which include:
- Fever >100.4 degrees F or hypothermia < 96.8 degrees F
- Leukocytosis - WBC > 12,000 or leukopenia - WBC < 4,000 or > 10% bands
- Tachycardia > 90 beats per minute
- Tachypnea - RR > 20 breaths per minute or PaCO2 , 32mmHg
Source: Merck Manual 2012
- Indicate if associated with an implanted device such as a F/C, PICC line, orthopedic hardware, etc.
Use of terms such as suspected, likely, concern for, or probable (associated with a specific diagnosis that is being evaluated, monitored, or treated as if it exists) are acceptable and can be coded in the inpatient setting, when documented at the
time of discharge.
Thank you,
Chelsey Tapia RN BSN CCDS
CDI Specialist
please contact via tiger text
Please use your independent medical judgment in providing your response.
[2024-05-17] MEDS: HEPARIN 2300 UNITS INTRACATH (16:02)
--- NOTE | 2024-05-17 16:07 | W.PN.NEPH.HD ---
Assessment
-
pt seen during HD
vitals stable
UF as tolerates
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
temp HD catheter is ok for now
plan to change to tunneled catheter next week as long as cx remains neg
Progress Note - Hemodialysis
-
Date of Service: May 17, 2024
Duration: 30 minutes and 3 hours
Potassium Bath: 2
Calcium Bath: 2.5
Opti-Dialyzer: 160
Ultrafiltration: Other (2.5-3kg)
Blood Flow: 400
Dialysate Flow: 600
Heparin: yesx2
EPO: no
--- NOTE | 2024-05-17 16:08 | W.PN.ID1 ---
Date of Service
Date of Service: May 17, 2024
Today's Communication
Continue Vancomycin.
Assessment / Plan
# HD catheter infection.
# ESRD on HD MWF
# DM
- Outpatient cath site swab reportedly +MRSA. Requested outside culture, not yet received
-Follow blood cx's.
- 05/17 HD cath removed. Cath tip Staph aureus
-Blood cx's x 2 neg to date
-Continue Vancomycin pending susceptibility.
-If bcx's remain negative Monday,can place tunneled cath.
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
DM
Neuropathy
ESRD on HD via tunnelled catheter
Chronic hypoxic respiratory failure on O2
Chronic hypotension on midodrine
Afib
dCHF
hypothyroidism
Class III obesity BMI 63
Depression
Ambulatory dysfunction
Chief Complaint
-: Other (HD cath infection)
Subjective / Review of Systems
No complaints today.
Vital Signs / Physical Exam
Vital Signs
Vital Signs
Temp Pulse Resp BP Pulse Ox
98.3 F 102 22 128/94 97
05/17/24 15:09 05/17/24 15:09 05/17/24 15:09 05/17/24 15:09 05/17/24 15:09
Physical Exam
Constitutional: No Acute Distress and Comfortable
Cardiovascular: Regular Rate and S1/S2
Pulmonary: Clear
Gastrointestinal: Soft, Non Tender, Non Distended and Normal Bowel Sounds
Extremities: Edema
Neurological: AO x 3
Objective Data
Lab Data
Lab Results
05/17/24 06:06
05/17/24 06:06
Estimated Creat Clear 38 ml/min 05/17/24 06:06
Most recent labs reviewed.
Micro Results:
05/15/24 15:33 Blood Culture - Preliminary
Blood/Venous No Growth in 48 hours- Final report to follow
05/15/24 13:15 Blood Culture - Preliminary
Blood/Venous No Growth in 48 hours- Final report to follow
05/16/24 14:10 Catheter Tip Culture - Preliminary
Dialysis Line Staphylococcus aureus
[2024-05-17 17:02] LABS: Glucose - Point of Care 118 mg/dl (70-99)
[2024-05-17] MEDS: VANCOCIN 150 IV (17:03)
[2024-05-17] MEDS: LYRICA 75 MG PO (17:22)
[2024-05-17] MEDS: ULTRAM 25 MG PO (21:29)
[2024-05-17] MEDS: ELIQUIS 5 MG PO (21:31)
[2024-05-17] MEDS: ZYRTEC 5 MG PO (21:31)
[2024-05-17] MEDS: MELATONIN 3 MG PO (21:31)
[2024-05-17] MEDS: KCL 20 MEQ PO (21:31)
[2024-05-17 22:15] LABS: Glucose - Point of Care 104 mg/dl (70-99)
[2024-05-17] MEDS: LANTUS 0.12 UNITS SC (22:31)
[2024-05-17] MEDS: IMODIUM 2 MG PO (23:23)
[2024-05-18 03:00] VITALS: BP 125/80
[2024-05-18] MEDS: SYNTHROID 275 MCG PO (05:35)
[2024-05-18 06:00] VITALS: BMI 59.1
[2024-05-18 06:28] LABS: Hematocrit 38.3 % (37.0-47.0); Hemoglobin 11.6 g/dL (12.0-16.0); Mean Corp Hgb Conc. 30.3 g/dL (33.0-37.0); Mean Corpuscular Hgb 28.2 pg (27.0-31.0); Platelet Count 117 10^3/uL (130-400); Red Blood Cell Count 4.12 10^6/uL (4.20-5.40); Red Cell Dist. Width 15.3 % (11.5-14.5); White Blood Cell Count 6.4 10^3/uL (4.8-10.8)
[2024-05-18 06:41] LABS: Vancomycin Random 17.2 ug/ml
[2024-05-18 06:52] LABS: Blood Urea Nitrogen 24 mg/dl (7-17); Calcium 9.5 mg/dl (8.4-10.2); Carbon Dioxide 29 mmol/L (22-30); Chloride 96 mmol/L (98-107); Estimated Creatinine Clearance 41 ml/min; Glucose 109 mg/dl (70-99); Potassium 4.5 mmol/L (3.5-5.1); Sodium 136 mmol/L (135-145); eGFR 23.12
[2024-05-18 08:01] LABS: Glucose - Point of Care 104 mg/dl (70-99)
--- NOTE | 2024-05-18 08:08 | PHA.VAN.FU ---
Vancomycin Assessment / Plan
- Assessment
Hemodialysis Schedule: MWF
WBC's are: Stable
In the past 24 hrs, patient has been: Afebrile
- Assessment - Therapeutic Drug Monitoring
Random Level: R = 17.2 ~ 13hrs post Vanc 750mg
- Dosing Plan
Continue: Dose by level PRN post HD
Dosing by Level: Hold off on dosing today
- Monitoring Plan
Random Level: 2/2 with AM labs
- Follow Up
Pharmacy will continue to follow.
Vancomycin Follow UP
- -
Patient Age: 54
Patient Sex: Female
Vancomycin Day #: 4
Indication: Skin And Soft Tissue (HD PORT )
Requesting Provider: SHAQ
Height / Weight:
Height 5 ft 5 in
Actual Weight 161.195 kg
- Vital Signs / Lab Results
Temp Pulse Resp BP Pulse Ox
97.4 F 94 16 125/80 98
05/18/24 03:00 05/18/24 03:00 05/18/24 03:00 05/18/24 03:00 05/18/24 03:00
Lab Results - Hematology
05/15/24 05/16/24 05/16/24
13:15 06:00 08:03
WBC 7.1 Cancelled 7.1
05/17/24 05/18/24
06:06 06:12
WBC 6.4 6.4
Lab Results - Chemistry
05/15/24 05/16/24 05/16/24
13:15 06:00 08:03
BUN 36 H Cancelled 44 H
Creatinine 3.5 H Cancelled 3.8 H
Estimated Creat Clear 29 Cancelled 26
05/17/24 05/18/24
06:06 06:12
BUN 26 H 24 H
Creatinine 2.6 H 2.4 H
Estimated Creat Clear 38 41
Microbiology Results
05/15/24 15:33 Blood Culture - Preliminary
Blood/Venous No Growth in 48 hours- Final report to follow
05/15/24 13:15 Blood Culture - Preliminary
Blood/Venous No Growth in 48 hours- Final report to follow
05/16/24 14:10 Catheter Tip Culture - Preliminary
Dialysis Line Staphylococcus aureus
Therapeutic Drug Monitoring
Random Vancomycin 17.2 ug/ml 05/18/24 06:12
[2024-05-18] MEDS: NOVOLOG FLEXPEN-LOW RESISTANCE SC ×3 (08:12→18:42)
[2024-05-18] MEDS: DEMADEX 20 MG PO (08:13)
[2024-05-18] MEDS: ATARAX 25 MG PO ×3 (08:13→22:15)
[2024-05-18] MEDS: LIDOCAINE 4% PATCH 1 PATCH TOPICAL (08:13)
[2024-05-18] MEDS: ProAmatine 10 MG PO ×3 (08:13→17:12)
[2024-05-18] MEDS: COLACE PO ×2 (08:14→22:16)
[2024-05-18] MEDS: ELIQUIS 5 MG PO ×2 (08:14→22:15)
[2024-05-18] MEDS: DESENEX/MITRAZOL/ZEASORB 1 APPLIC TOPICAL ×3 (08:14→22:16)
[2024-05-18] MEDS: DULCOLAX PO (08:14)
[2024-05-18] MEDS: SENOKOT PO (08:15)
[2024-05-18] MEDS: CARDIZEM CD 120 MG PO (08:16)
[2024-05-18] MEDS: CYMBALTA DELAYED RELEASE 60 MG PO (08:16)
[2024-05-18 08:17] VITALS: BP 125/88
--- NOTE | 2024-05-18 08:30 | W.PN.HOSP.TC ---
Today's Communication/Plan
-
IV antibiotics. Doppler left lower extremity
Assessment / Plan
Assessment / Plan
Physical Exam
General: Well Developed, Well Nourished and No Apparent Distress
HEENT: NormoCephalic, Moist mucous membranes and Atraumatic
Respiratory: Clear
Cardiac: S1/S2 and Regular Rhythm; No Murmur or Rub
GI: Soft, Non Tender, Non Distended and Normal Bowel Sounds; No Organomegaly
Rectal: Deferred by Provider
Musculoskeletal: No Clubbing, No Cyanosis and No Edema
Skin: Other (right chest wall port site redness)
Neuro: AO x 3 and Nonfocal/grossly intact
Psych: Calm
A/P:
# HD catheter site infection
-Outpatient site swab positive MRSA. Obtaining OP medical record
-Follow-up blood cultures
-S/P HD cath removal after dialysis yesterday and culture tip on 05/16. Cultures growing Staphylococcus aureus.
-Status post new catheter on the left side on 05/17.
-Continue IV Abx
-Appreciated ID consult
#Redness legs
Suspect related to chronic edema but obtain Doppler to rule out DVT
Already on appropriate antibiotics and this were to be infectious but less likely
She is also on anticoagulation but we held it for a couple of days.
#hxt atrial fib, probably paroxysmal
-On Cardizem
-Back on Eliquis since last night-discussed with nephrology. We can hold it later on when ready to place a tunneled catheter
#History of end-stage renal disease on dialysis Monday#
-Nephrology consulted--> HD per nephrology
# History of chronic diastolic congestive heart failure
#chronic hypoxic respiratory failure on 2-3l
-Continue supplemental oxygen to keep sat greater than 92
-Wean as tolerated
-Patient is not in exacerbation
-Daily weight
-Torsemide continue
# Hypothyroidism
-Will continue Synthroid
# Type 2 diabetes
-Sliding scale
-CHO diet
-Lantus 12 units at bedtime
# Depression
-Duloxetine continued
# GERD
-PPI
# Hypotension
cont midodrine
# DVT prophylaxis
-SCD
# CODE STATUS
-DNR
# DVT prophylaxis
-Heparin subcu
Total time spent on today's encounter was 52 minutes which included time spent in counseling the patient/family regarding diagnosis and treatment plan as listed above, goals of care, and symptom management. Case was discussed with nursing staff,
specialists, and care coordinators/case management. All labs and imaging personally reviewed by me. Remainder the time spent in detailed review of previous records, lab data, imaging, and other medical provider documentation.
Anticipated Discharge: > 48 hours
Subjective/Interval History
-
Date of Service: May 18, 2024
Left lower extremity more red than right. Afebrile. No chest pain or worsening shortness of breath.
Objective Data
-
Labs:
Laboratory Results
05/18/24
06:12
WBC 6.4
Hgb 11.6 L
Hct 38.3
Plt Count 117 L
Sodium 136
Potassium 4.5
Chloride 96 L
Carbon Dioxide 29
BUN 24 H
Creatinine 2.4 H
Glucose 109 H
Calcium 9.5
Vital Signs:
Vital Signs
Temp Pulse Resp BP Pulse Ox
97.5 F 99 20 125/88 100
05/18/24 08:17 05/18/24 08:17 05/18/24 08:17 05/18/24 08:17 05/18/24 08:17
I&O
05/17/24 05/18/24 05/19/24
06:59 06:59 06:59
Intake Total 720 / 720 1260 / 1260
Balance 237 / 766 1260 / 1260
[2024-05-18 12:32] LABS: Glucose - Point of Care 108 mg/dl (70-99)
[2024-05-18 15:32] VITALS: BP 118/81
--- NOTE | 2024-05-18 17:06 | W.PN.NEPH.PH ---
Today's Communication / Plan
-
HD on monday likely after tunneled catheter placement
Assessment/Plan
-
Assessment
ESRD
A-fib
Hypotension
Diabetes mellitus type 2
Hypothyroidism
Obesity
Catheter exit site infection
Plan
bld cultures, so far neg
abx per ID
BP stable on midodrine
K stable on daily kcl -does she still need?
likely change to tunneled on Monday
-
-
Date of Service: May 18, 2024
CC / HPI / ROS
-
Chief Complaint:
ESRD
History of Present Illness:
tolerated HD yesterday
no fever, Bp stable
Review of Systems:
no cp or sob
no n/v
feels well
Labs
-
Labs:
WBC 6.4 10^3/uL (4.8-10.8) 05/18/24 06:12
RBC 4.12 10^6/uL (4.20-5.40) L 05/18/24 06:12
Hgb 11.6 g/dL (12.0-16.0) L 05/18/24 06:12
Hct 38.3 % (37.0-47.0) 05/18/24 06:12
Plt Count 117 10^3/uL (130-400) L 05/18/24 06:12
Sodium 136 mmol/L (135-145) 05/18/24 06:12
Potassium 4.5 mmol/L (3.5-5.1) 05/18/24 06:12
Chloride 96 mmol/L (98-107) L 05/18/24 06:12
Carbon Dioxide 29 mmol/L (22-30) 05/18/24 06:12
BUN 24 mg/dl (7-17) H 05/18/24 06:12
Creatinine 2.4 mg/dL (0.6-1.0) H 05/18/24 06:12
eGFR 23.12 05/18/24 06:12
Glucose 109 mg/dl (70-99) H 05/18/24 06:12
Calcium 9.5 mg/dl (8.4-10.2) 05/18/24 06:12
Phosphorus 5.2 mg/dl (2.5-4.5) H 05/15/24 13:15
Physical Exam
-
Vital Signs:
Vital Signs
Temp Pulse Resp BP Pulse Ox
97.5 F 99 20 125/88 100
05/18/24 08:17 05/18/24 08:17 05/18/24 08:17 05/18/24 08:17 05/18/24 08:17
Cardiovascular:: Regular rate and rhythm
Respiratory:: Bilateral: CTA (anteriorly)
Lung Excursion:: Normal
Abdomen:: Nontender and Soft
Extremity Edema:: None: Bilateral:
Gay Catheter: No
[2024-05-18 19:00] VITALS: BP 128/94
--- NOTE | 2024-05-18 19:18 | PTCARENOTE ---
Pt. previous HD cath site on right chest dressing changed. Site had dried blood and white/yellow purulent drainage. As previous dressing was removed dried drainage came off, site underneath appears to be raised pink exposed tissue with small pin
point incisional site visible. The site has no surrounding redness and is not tender. Area cleansed with saline and silicone border foam applied for protective covering. Pt. also has new small skin tear on the left side of her abdomen under her
lower abdominal skin fold. The new skin tear had some minimal bleeding that is now resolved and site covered with silicone border foam. Wound care consult ordered and house provider notified.
[2024-05-18 21:36] LABS: Glucose - Point of Care 84 mg/dl (70-99)
[2024-05-18] MEDS: MELATONIN 3 MG PO (22:15)
[2024-05-18] MEDS: ZYRTEC 5 MG PO (22:15)
[2024-05-18] MEDS: KCL 20 MEQ PO (22:16)
[2024-05-18] MEDS: PEPCID 20 MG PO (22:16)
[2024-05-18] MEDS: LANTUS SC (22:17)
[2024-05-18 23:00] VITALS: BP 129/86
[2024-05-19 03:00] VITALS: BP 128/83
[2024-05-19 06:00] VITALS: BMI 58.9
[2024-05-19] MEDS: SYNTHROID 275 MCG PO (06:33)
[2024-05-19 07:42] LABS: % Basophils 1.3 % (0-2); % Eosinophils 10.7 % (0-6); % Immature Granulocytes 0.4 % (0-0.5); % Lymphocytes 22.5 % (20.5-51.1); % Monocytes 7.7 % (1.7-9.3); % Neutrophils 57.4 % (42.2-75.2); Absolute Basophils 0.1 10^3/uL (0-0.2); Absolute Eosinophils 0.6 10^3/uL (0-0.7); Absolute Lymphocytes 1.2 10^3/uL (1.2-3.4); Absolute Monocytes 0.4 10^3/uL (0.1-0.6); Absolute Neutrophils 3.1 10^3/uL (1.4-6.5); Hematocrit 37.6 % (37.0-47.0); Hemoglobin 11.2 g/dL (12.0-16.0); Mean Corp Hgb Conc. 29.8 g/dL (33.0-37.0); Nucleated Red Blood Cells % 0 %; Platelet Count 122 10^3/uL (130-400); Red Cell Dist. Width 15.1 % (11.5-14.5); White Blood Cell Count 5.4 10^3/uL (4.8-10.8)
[2024-05-19 07:47] LABS: Glucose - Point of Care 83 mg/dl (70-99)
[2024-05-19 07:56] LABS: Blood Urea Nitrogen 31 mg/dl (7-17); Calcium 9.8 mg/dl (8.4-10.2); Carbon Dioxide 27 mmol/L (22-30); Chloride 98 mmol/L (98-107); Estimated Creatinine Clearance 31 ml/min; Glucose 95 mg/dl (70-99); Potassium 4.1 mmol/L (3.5-5.1); Sodium 135 mmol/L (135-145); eGFR 17.01
[2024-05-19 08:09] VITALS: BP 120/67
[2024-05-19 08:14] LABS: Vancomycin Random 15.2 ug/ml
[2024-05-19 09:00] VITALS: BMI 58.9
[2024-05-19] MEDS: ELIQUIS 5 MG PO ×2 (09:17→19:46)
[2024-05-19] MEDS: NOVOLOG FLEXPEN-LOW RESISTANCE SC ×3 (09:17→16:46)
[2024-05-19] MEDS: DEMADEX 20 MG PO (09:17)
[2024-05-19] MEDS: COLACE 100 MG PO (09:17)
[2024-05-19] MEDS: DULCOLAX 10 MG PO (09:17)
[2024-05-19] MEDS: SENOKOT 17.2 MG PO (09:18)
[2024-05-19] MEDS: LIDOCAINE 4% PATCH 1 PATCH TOPICAL (09:18)
[2024-05-19] MEDS: ATARAX 25 MG PO ×3 (09:18→21:16)
[2024-05-19] MEDS: DESENEX/MITRAZOL/ZEASORB 1 APPLIC TOPICAL ×3 (09:18→21:17)
[2024-05-19] MEDS: CYMBALTA DELAYED RELEASE 60 MG PO (09:20)
[2024-05-19] MEDS: CARDIZEM CD 120 MG PO (09:20)
[2024-05-19] MEDS: ProAmatine 10 MG PO (09:21)
--- NOTE | 2024-05-19 09:46 | W.PN.HOSP.TC ---
Today's Communication/Plan
-
IV antibiotics. Plan for tunnel catheter
Assessment / Plan
Assessment / Plan
Physical Exam
General: Well Developed, Well Nourished and No Apparent Distress
HEENT: NormoCephalic, Moist mucous membranes and Atraumatic
Respiratory: Clear
Cardiac: S1/S2 and Regular Rhythm; No Murmur or Rub
GI: Soft, Non Tender, Non Distended and Normal Bowel Sounds; No Organomegaly
Rectal: Deferred by Provider
Musculoskeletal: No Clubbing, No Cyanosis and No Edema
Skin: Other (right chest wall port site redness improving after removal of catheter). Left side vascular catheter in place.
Neuro: AO x 3 and Nonfocal/grossly intact
Psych: Calm
A/P:
# HD catheter site infection
-Outpatient site swab positive MRSA. Obtaining OP medical record
-Follow-up blood cultures
-S/P HD cath removal after dialysis yesterday and culture tip on 05/16. Cultures growing Staphylococcus aureus.
-Status post new catheter on the left side on 05/17.
-Continue IV Abx
-Appreciated ID consult
#Diarrhea
C. difficile negative
Will start Imodium as needed
Trying to avoid probiotics in the setting of vascular access infection
#Redness legs
Suspect related to chronic edema
Doppler negative for DVT
Already on appropriate antibiotics and this were to be infectious but less likely
She is also on anticoagulation but we held it for a couple of days. Continue current anticoagulation.
#hxt atrial fib, probably paroxysmal
-On Cardizem
-Back on Eliquis since last night-discussed with nephrology. We can hold it later on when ready to place a tunneled catheter
#History of end-stage renal disease on dialysis Monday#
-Nephrology consulted--> HD per nephrology
# History of chronic diastolic congestive heart failure
#chronic hypoxic respiratory failure on 2-3l
-Continue supplemental oxygen to keep sat greater than 92
-Wean as tolerated
-Patient is not in exacerbation
-Daily weight
-Torsemide continue
# Hypothyroidism
-Will continue Synthroid
# Type 2 diabetes
-Sliding scale
-CHO diet
-Lantus 12 units at bedtime
# Depression
-Duloxetine continued
# GERD
-PPI
# Hypotension
cont midodrine
# DVT prophylaxis
-SCD
# CODE STATUS
-DNR
# DVT prophylaxis
-Heparin subcu
Total time spent on today's encounter was 52 minutes which included time spent in counseling the patient/family regarding diagnosis and treatment plan as listed above, goals of care, and symptom management. Case was discussed with nursing staff,
specialists, and care coordinators/case management. All labs and imaging personally reviewed by me. Remainder the time spent in detailed review of previous records, lab data, imaging, and other medical provider documentation.
Anticipated Discharge: 24 - 48 hours
Subjective/Interval History
-
Date of Service: May 19, 2024
Patient doing better overall. She does have some diarrhea. No nausea or vomiting. Afebrile
Objective Data
-
Labs:
Laboratory Results
05/19/24
07:01
WBC 5.4
Hgb 11.2 L
Hct 37.6
Plt Count 122 L
Sodium 135
Potassium 4.1
Chloride 98
Carbon Dioxide 27
BUN 31 H
Creatinine 3.1 H
Glucose 95
Calcium 9.8
Vital Signs:
Vital Signs
Temp Pulse Resp BP Pulse Ox
97.3 F 88 20 120/67 98
05/19/24 08:09 05/19/24 08:09 05/19/24 08:09 05/19/24 08:09 05/19/24 08:09
I&O
05/18/24 05/19/24 05/20/24
06:59 06:59 06:59
Intake Total 1260 / 1260 480 / 480
Balance 1260 / 1260 480 / 480
--- NOTE | 2024-05-19 09:58 | PHA.VAN.FU ---
Vancomycin Assessment / Plan
- Assessment
Hemodialysis Schedule: MWF
WBC's are: Trending Down
In the past 24 hrs, patient has been: Afebrile
- Assessment - Therapeutic Drug Monitoring
Random Level: R = 15.2 ~ 38hrs post Vanc 750mg
- Dosing Plan
Continue: Dose by level post HD
Dosing by Level: Hold off on dosing today
- Monitoring Plan
Random Level: 2/3 with AM labs
- Follow Up
Pharmacy will continue to follow.
Vancomycin Follow UP
- -
Patient Age: 54
Patient Sex: Female
Vancomycin Day #: 5
Indication: Skin And Soft Tissue (HD PORT )
Requesting Provider: SHAQ
Height / Weight:
Height 5 ft 5 in
Actual Weight 160.6 kg
- Vital Signs / Lab Results
Temp Pulse Resp BP Pulse Ox
97.3 F 88 20 120/67 98
05/19/24 08:09 05/19/24 08:09 05/19/24 08:09 05/19/24 08:09 05/19/24 08:09
Lab Results - Hematology
05/17/24 05/18/24 05/19/24
06:06 06:12 07:01
WBC 6.4 6.4 5.4
Lab Results - Chemistry
05/17/24 05/18/24 05/19/24
06:06 06:12 07:01
BUN 26 H 24 H 31 H
Creatinine 2.6 H 2.4 H 3.1 H
Estimated Creat Clear 38 41 31
Microbiology Results
05/16/24 14:10 Catheter Tip Culture - Final
Dialysis Line Staph aureus MRSA
05/15/24 15:33 Blood Culture - Preliminary
Blood/Venous No Growth in 72 hours- Final report to follow
05/15/24 13:15 Blood Culture - Preliminary
Blood/Venous No Growth in 72 hours- Final report to follow
05/18/24 08:38 C. difficile GDH Antigen & Toxins - Final
Feces/Stool Negative for toxigenic C.difficile
Therapeutic Drug Monitoring
Random Vancomycin 15.2 ug/ml 05/19/24 07:01
[2024-05-19 11:44] LABS: Glucose - Point of Care 88 mg/dl (70-99)
[2024-05-19 11:48] VITALS: BP 125/72
--- NOTE | 2024-05-19 12:44 | CM ---
CM following re: d/c planning.
Pt from [facility].
She has been there since Nov 2023.
Return referral placed in ecin.
Call placed to discuss with her RN Chelsey Almazan, who states pt is full care and mostly bed bound.
She is able to feed herself. Pt requires strong encouragement to get out of bed, per her SNF RN.
Pt is on HD there.
CM continuing to follow, will update HV when pt is ready to return.
[2024-05-19] MEDS: ProAmatine PO ×2 (13:48→16:42)
[2024-05-19 15:08] VITALS: BP 114/81
[2024-05-19 16:08] VITALS: BP 114/81
[2024-05-19] MEDS: LYRICA 75 MG PO (16:41)
[2024-05-19 16:43] LABS: Glucose - Point of Care 95 mg/dl (70-99)
[2024-05-19] MEDS: IMODIUM 2 MG PO (16:45)
--- NOTE | 2024-05-19 17:18 | W.PN.NEPH.PH ---
Today's Communication / Plan
-
HD tomorrow, and also change to tunneled catheter
Assessment/Plan
-
Assessment
ESRD
A-fib
Hypotension
Diabetes mellitus type 2
Hypothyroidism
MOrbid Obesity
Catheter exit site infection
Plan
bld cultures so far neg
abx per ID
BP stable on midodrine
K stable on daily kcl -does she still need?
likely change to tunneled on Monday -IR consulted
-
-
Date of Service: May 19, 2024
CC / HPI / ROS
-
Chief Complaint:
ESRD
History of Present Illness:
tolerated HD monday
no fever, Bp stable
Review of Systems:
no cp or sob
no n/v
feels well
loose BMs
Labs
-
Labs:
WBC 5.4 10^3/uL (4.8-10.8) 05/19/24 07:01
RBC 4.00 10^6/uL (4.20-5.40) L 05/19/24 07:01
Hgb 11.2 g/dL (12.0-16.0) L 05/19/24 07:01
Hct 37.6 % (37.0-47.0) 05/19/24 07:01
Plt Count 122 10^3/uL (130-400) L 05/19/24 07:01
Sodium 135 mmol/L (135-145) 05/19/24 07:01
Potassium 4.1 mmol/L (3.5-5.1) 05/19/24 07:01
Chloride 98 mmol/L (98-107) 05/19/24 07:01
Carbon Dioxide 27 mmol/L (22-30) 05/19/24 07:01
BUN 31 mg/dl (7-17) H 05/19/24 07:01
Creatinine 3.1 mg/dL (0.6-1.0) H 05/19/24 07:01
eGFR 17.01 05/19/24 07:01
Glucose 95 mg/dl (70-99) 05/19/24 07:01
Calcium 9.8 mg/dl (8.4-10.2) 05/19/24 07:01
Phosphorus 5.2 mg/dl (2.5-4.5) H 05/15/24 13:15
Physical Exam
-
Vital Signs:
Vital Signs
Temp Pulse Resp BP Pulse Ox
97.7 F 64 20 114/81 98
05/19/24 15:08 05/19/24 15:08 05/19/24 15:08 05/19/24 15:08 05/19/24 15:08
Cardiovascular:: Regular rate and rhythm
Respiratory:: Bilateral: CTA (anteriorly)
Lung Excursion:: Normal
Abdomen:: Nontender and Soft
Extremity Edema:: +1: Bilateral: (chronic)
Gay Catheter: No
[2024-05-19] MEDS: COLACE PO ×2 (19:46→19:49)
[2024-05-19 21:08] LABS: Glucose - Point of Care 94 mg/dl (70-99)
[2024-05-19] MEDS: KCL 20 MEQ PO (21:16)
[2024-05-19] MEDS: ZYRTEC 5 MG PO (21:16)
[2024-05-19] MEDS: MELATONIN 3 MG PO (21:17)
[2024-05-19 22:53] VITALS: BP 119/80
--- NOTE | 2024-05-19 23:39 | PTCARENOTE ---
Patient's AccuCheck- 94, Notified SCHUYLER Silverman. Okay to hold tonight dose per advise.
[2024-05-20 03:13] VITALS: BP 128/68
[2024-05-20] MEDS: SYNTHROID 275 MCG PO (05:36)
[2024-05-20 05:58] VITALS: BMI 58.8
[2024-05-20 07:05] VITALS: BP 109/69
[2024-05-20 07:19] LABS: Glucose - Point of Care 96 mg/dl (70-99)
[2024-05-20 08:20] LABS: % Basophils 0.9 % (0-2); % Eosinophils 8.9 % (0-6); % Immature Granulocytes 0.4 % (0-0.5); % Monocytes 7.4 % (1.7-9.3); % Neutrophils 63.4 % (42.2-75.2); Absolute Eosinophils 0.4 10^3/uL (0-0.7); Absolute Lymphocytes 0.9 10^3/uL (1.2-3.4); Absolute Monocytes 0.3 10^3/uL (0.1-0.6); Absolute Neutrophils 2.9 10^3/uL (1.4-6.5); Hematocrit 36.2 % (37.0-47.0); Mean Corp Hgb Conc. 30.4 g/dL (33.0-37.0); Mean Corpuscular Hgb 28.4 pg (27.0-31.0); Mean Corpuscular Volume 93.5 fL (81.0-99.0); Mean Platelet Volume 10.2 fL (7.4-10.4); Nucleated Red Blood Cells % 0 %; Platelet Count 127 10^3/uL (130-400); Red Blood Cell Count 3.87 10^6/uL (4.20-5.40); Red Cell Dist. Width 15.2 % (11.5-14.5); White Blood Cell Count 4.6 10^3/uL (4.8-10.8)
[2024-05-20 08:27] LABS: Vancomycin Random 15.1 ug/ml
[2024-05-20] MEDS: NOVOLOG FLEXPEN-LOW RESISTANCE SC ×3 (08:36→17:04)
[2024-05-20 08:37] LABS: Blood Urea Nitrogen 38 mg/dl (7-17); Carbon Dioxide 27 mmol/L (22-30); Chloride 99 mmol/L (98-107); Estimated Creatinine Clearance 26 ml/min; Glucose 106 mg/dl (70-99); Potassium 3.8 mmol/L (3.5-5.1); Sodium 136 mmol/L (135-145); eGFR 13.76
[2024-05-20] MEDS: FLEXBUMIN 25% FOR HEMODIALYSIS 12.5 GRAMS IV (08:50)
[2024-05-20] MEDS: MANNITOL 25% 12.5 GRAMS IV (08:52)
--- NOTE | 2024-05-20 09:25 | W.PN.NEPH.HD ---
Assessment
-
Patient seen on dialysis
Systolic blood pressure stable with current UF
Temporary catheter with poor function and flows
Will have tunneled dialysis catheter placed after dialysis
2 doses of albumin and mannitol provided for blood pressure support
Progress Note - Hemodialysis
-
Date of Service: May 20, 2024
Duration: 30 minutes and 3 hours
Potassium Bath: 3
Calcium Bath: 2.5
Opti-Dialyzer: 160
Ultrafiltration: Other (3 kg)
Blood Flow: 350
Dialysate Flow: 600
Heparin: None
EPO: None
--- NOTE | 2024-05-20 10:50 | PHA.VAN.FU ---
Vancomycin Assessment / Plan
- Assessment
Hemodialysis Schedule: MWF
Last Hemodialysis performed: 05/20/24
WBC's are: Trending Down
In the past 24 hrs, patient has been: Afebrile
Concomitant Antimicrobials: none
- Assessment - Therapeutic Drug Monitoring
Random Level: 15.1 - pre HD
- Dosing Plan
Continue: dose by random level HD days
Dosing by Level: Re-dose today (500 mg x 1 dose after HD)
- Monitoring Plan
Random Level: order random level next HD day - Mon05/22/24
- Follow Up
Pharmacy will continue to follow.
Vancomycin Follow UP
- -
Patient Age: 54
Patient Sex: Female
Vancomycin Day #: 6
Indication: Skin And Soft Tissue (HD PORT )
Requesting Provider: SHAQ
Height / Weight:
Height 5 ft 5 in
Actual Weight 160.175 kg
- Vital Signs / Lab Results
Temp Pulse Resp BP Pulse Ox
97.6 F 97 17 109/69 98
05/20/24 07:05 05/20/24 07:05 05/20/24 07:05 05/20/24 07:05 05/20/24 07:05
Lab Results - Hematology
05/18/24 05/19/24 05/20/24
06:12 07:01 07:41
WBC 6.4 5.4 4.6 L
Lab Results - Chemistry
05/18/24 05/19/24 05/20/24
06:12 07:01 07:41
BUN 24 H 31 H 38 H
Creatinine 2.4 H 3.1 H 3.7 H
Estimated Creat Clear 41 31 26
Microbiology Results
05/15/24 15:33 Blood Culture - Preliminary
Blood/Venous No Growth in 4 days- Final report to follow
05/15/24 13:15 Blood Culture - Preliminary
Blood/Venous No Growth in 4 days- Final report to follow
05/16/24 14:10 Catheter Tip Culture - Final
Dialysis Line Staph aureus MRSA
05/18/24 08:38 C. difficile GDH Antigen & Toxins - Final
Feces/Stool Negative for toxigenic C.difficile
Therapeutic Drug Monitoring
Random Vancomycin 15.1 ug/ml 05/20/24 07:41
--- NOTE | 2024-05-20 10:55 | W.PN.HOSP.TC ---
Today's Communication/Plan
-
DC planning
Assessment / Plan
Assessment / Plan
Physical Exam
General: Well Developed, Well Nourished, obese and No Apparent Distress
HEENT: NormoCephalic, Moist mucous membranes and Atraumatic
Respiratory: Clear
Cardiac: S1/S2 and Regular Rhythm; No Murmur or Rub
GI: Soft, Non Tender, Non Distended and Normal Bowel Sounds; No Organomegaly
Rectal: Deferred by Provider
Musculoskeletal: No Clubbing, No Cyanosis and No Edema
Skin: Other (right chest wall port site redness improving after removal of catheter). Left side vascular catheter in place.
Neuro: AO x 3 and Nonfocal/grossly intact
Psych: Calm
A/P:
# HD catheter site infection
-Outpatient site swab positive MRSA. Obtaining OP medical record
-Follow-up blood cultures
-S/P HD cath removal after dialysis yesterday and culture tip on 05/16. Cultures growing Staphylococcus aureus.
-Status post new catheter on the left side on 05/17.
-Continue IV Abx
-Appreciated ID consult
# ESRD on HD
Per nephrology:
Systolic blood pressure stable with current UF
#Diarrhea
Resolving
C. difficile negative
Imodium as needed
No abdominal pain
#Redness legs
Suspect related to chronic edema
Doppler negative for DVT
Already on appropriate antibiotics and this were to be infectious but less likely
She is also on anticoagulation but we held it for a couple of days. Continue current anticoagulation.
#hxt atrial fib, probably paroxysmal
-On Cardizem
-Back on Eliquis
#History of end-stage renal disease on dialysis Monday#
-Nephrology consulted--> HD per nephrology
# History of chronic diastolic heart failure
#chronic hypoxic respiratory failure on 2-3l
-Continue supplemental oxygen to keep sat greater than 92
-Wean as tolerated
-Patient is not in exacerbation
-Daily weight
-Torsemide continue
# Hypothyroidism
-Will continue Synthroid
# Hyponatremia, resolved
Na at 136
# Type 2 diabetes
Well controlled, AM glucose is stable
-Sliding scale
-CHO diet
-Lantus 12 units at bedtime
# Depression
-Duloxetine continued
# GERD
-PPI
#chronic Hypotension
cont midodrine
# DVT prophylaxis
-SCD
# CODE STATUS
-DNR
# DVT prophylaxis
-On Eliquis
Total time spent on today's encounter was 55 minutes which included time spent in counseling the patient/family regarding diagnosis and treatment plan as listed above, goals of care, and symptom management. Case was discussed with nursing staff,
specialists, and care coordinators/case management. All labs and imaging personally reviewed by me. Remainder the time spent in detailed review of previous records, lab data, imaging, and other medical provider documentation.
Anticipated Discharge: Today
Subjective/Interval History
-
Date of Service: May 20, 2024
No abdominal pain
No chest pain
Objective Data
-
Labs:
Laboratory Results
05/20/24
07:41
WBC 4.6 L
Hgb 11.0 L
Hct 36.2 L
Plt Count 127 L
Sodium 136
Potassium 3.8
Chloride 99
Carbon Dioxide 27
BUN 38 H
Creatinine 3.7 H
Glucose 106 H
Calcium 10.0
Vital Signs:
Vital Signs
Temp Pulse Resp BP Pulse Ox
97.6 F 97 17 109/69 98
05/20/24 07:05 05/20/24 07:05 05/20/24 07:05 05/20/24 07:05 05/20/24 07:05
I&O
05/19/24 05/20/24 05/21/24
06:59 06:59 06:59
Intake Total 480 / 480 1380 / 1380
Balance 480 / 480 1380 / 1380
[2024-05-20 11:00] VITALS: BP 129/84
--- NOTE | 2024-05-20 11:00 | W.PN.ID1 ---
Date of Service
Date of Service: May 20, 2024
Today's Communication
-Continue Vancomycin 500mg IV MWF with dialysis, last dose 05/31/24.
- Infusion sheet submitted to director case to fax to dialysis center.
- OK for permanent HD cath placement today then dc back to snf.
Assessment / Plan
# HD catheter infection with MRSA
# ESRD on HD MWF
# DM
- Outpatient cath site swab reportedly +MRSA. Requested outside culture, not yet received
-Follow blood cx's.
- 05/17 HD cath removed. Cath tip MRSA
-Blood cx's x 2 neg
-Continue Vancomycin 500mg IV MWF with dialysis, last dose 05/31/24.
- Infusion sheet submitted to director case to fax to dialysis center.
- OK for permanent HD cath placement today then dc back to snf.
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
DM
Neuropathy
ESRD on HD via tunnelled catheter
Chronic hypoxic respiratory failure on O2
Chronic hypotension on midodrine
Afib
dCHF
hypothyroidism
Class III obesity BMI 63
Depression
Ambulatory dysfunction
Chief Complaint
-: Other (HD cath infection)
Subjective / Review of Systems
No complaints
Vital Signs / Physical Exam
Vital Signs
Vital Signs
Temp Pulse Resp BP Pulse Ox
97.6 F 97 17 109/69 98
05/20/24 07:05 05/20/24 07:05 05/20/24 07:05 05/20/24 07:05 05/20/24 07:05
Physical Exam
Constitutional: No Acute Distress, Comfortable and Obese
Cardiovascular: Regular Rate and S1/S2
Pulmonary: Clear
Gastrointestinal: Soft, Non Tender, Non Distended and Normal Bowel Sounds
Extremities: Edema
Objective Data
Lab Data
Lab Results
05/20/24 07:41
05/20/24 07:41
Estimated Creat Clear 26 ml/min 05/20/24 07:41
Most recent labs reviewed.
Micro Results:
05/15/24 15:33 Blood Culture - Preliminary
Blood/Venous No Growth in 4 days- Final report to follow
05/15/24 13:15 Blood Culture - Preliminary
Blood/Venous No Growth in 4 days- Final report to follow
05/16/24 14:10 Catheter Tip Culture - Final
Dialysis Line Staph aureus MRSA
05/18/24 08:38 C. difficile GD Antigen & Toxins - Final
Feces/Stool Negative for toxigenic C.difficile
[2024-05-20 11:51] LABS: Glucose - Point of Care 103 mg/dl (70-99)
[2024-05-20] MEDS: LIDOCAINE 4% PATCH 1 PATCH TOPICAL (12:29)
[2024-05-20] MEDS: CYMBALTA DELAYED RELEASE 60 MG PO (12:30)
[2024-05-20] MEDS: ProAmatine 10 MG PO (12:30)
[2024-05-20] MEDS: CARDIZEM CD 120 MG PO (12:30)
[2024-05-20] MEDS: COLACE PO ×3 (12:30→20:27)
[2024-05-20] MEDS: ELIQUIS 5 MG PO ×2 (12:30→20:46)
[2024-05-20] MEDS: DEMADEX 20 MG PO (12:31)
[2024-05-20] MEDS: DESENEX/MITRAZOL/ZEASORB 1 APPLIC TOPICAL ×3 (12:31→20:47)
[2024-05-20] MEDS: ATARAX 25 MG PO ×3 (12:31→20:38)
[2024-05-20] MEDS: DULCOLAX PO (12:32)
[2024-05-20] MEDS: SENOKOT PO (12:32)
[2024-05-20] MEDS: ProAmatine PO ×3 (12:33→16:59)
[2024-05-20] MEDS: VANCOCIN HCL 500 MG 100 IV (12:34)
--- NOTE | 2024-05-20 12:49 | CM ---
Addendum entered by ROMEL Najera 05/20/24 15:48:
Message left with spouse regarding patient transfer.
Original Note:
Spoke with Wendy Webster in admissions at [facility] who confirmed that they can take patient back as she is a MA-15 day bed hold. She requested that an authorization attempt be made through patient's insurance. Explanation was provided that request
for assessment will be made, however, per PT notes patient is at baseline and has no skilled need. Spoke with Radha, PT, who confirmed that patient is at baseline and has no skilled needs at this time.
# For report [phone] for ground floor. # For fax [phone].
Placed a call to Wendy in admissions to relay what PT stated however had to leave a voice mail message. Request was made that she call CM back to confirm that they can accommodate receipt of patient today.
Plan: Case management will continue to follow and assist with discharge planning. Back to [facility] once call has been received from admissions stating that they can accept.
[2024-05-20 15:00] VITALS: BP 119/78
[2024-05-20 17:03] LABS: Glucose - Point of Care 135 mg/dl (70-99)
--- NOTE | 2024-05-20 18:38 | PTCARENOTE ---
patient's d/c order noted pending tunneled cath placement by IRad. all due medications were admin. complete care provided.
[2024-05-20 19:00] VITALS: BP 125/74
[2024-05-20] MEDS: ZYRTEC 5 MG PO (20:38)
[2024-05-20] MEDS: PEPCID 20 MG PO (20:39)
[2024-05-20] MEDS: MELATONIN 3 MG PO (20:39)
[2024-05-20] MEDS: KCL 20 MEQ PO (20:39)
[2024-05-20] MEDS: IMODIUM 2 MG PO (20:58)
[2024-05-20 21:50] LABS: Glucose - Point of Care 151 mg/dl (70-99)
[2024-05-20 23:00] VITALS: BP 109/68
--- NOTE | 2024-05-20 23:42 | PTCARENOTE ---
Pt assessed as per flow sheet. Medicated as ordered. No s/s of distress assessed. Will continue to monitor.
[2024-05-21 03:00] VITALS: BP 124/76
[2024-05-21] MEDS: SYNTHROID 275 MCG PO (05:17)
[2024-05-21 05:29] VITALS: BMI 58.1
[2024-05-21 06:00] VITALS: BMI 58.2
[2024-05-21 07:00] LABS: Hematocrit 35.7 % (37.0-47.0); Hemoglobin 11.1 g/dL (12.0-16.0); Mean Corp Hgb Conc. 31.1 g/dL (33.0-37.0); Mean Corpuscular Hgb 28.7 pg (27.0-31.0); Mean Corpuscular Volume 92.2 fL (81.0-99.0); Mean Platelet Volume 9.6 fL (7.4-10.4); Platelet Count 111 10^3/uL (130-400); Red Blood Cell Count 3.87 10^6/uL (4.20-5.40); White Blood Cell Count 4.7 10^3/uL (4.8-10.8)
[2024-05-21 07:17] VITALS: BP 128/81
[2024-05-21 07:22] LABS: Blood Urea Nitrogen 28 mg/dl (7-17); Calcium 9.7 mg/dl (8.4-10.2); Carbon Dioxide 27 mmol/L (22-30); Chloride 99 mmol/L (98-107); Estimated Creatinine Clearance 32 ml/min; Glucose 103 mg/dl (70-99); Potassium 3.4 mmol/L (3.5-5.1); Sodium 136 mmol/L (135-145); eGFR 17.69
[2024-05-21 07:36] LABS: Glucose - Point of Care 189 mg/dl (70-99)
[2024-05-21] MEDS: NOVOLOG FLEXPEN-LOW RESISTANCE 1 UNITS SC (08:41)
[2024-05-21] MEDS: LIDOCAINE 4% PATCH 1 PATCH TOPICAL (08:41)
[2024-05-21] MEDS: DULCOLAX PO (08:42)
[2024-05-21] MEDS: ProAmatine 10 MG PO ×3 (08:42→16:55)
[2024-05-21] MEDS: SENOKOT PO (08:42)
[2024-05-21] MEDS: ATARAX 25 MG PO ×2 (08:43→16:55)
[2024-05-21] MEDS: ELIQUIS 5 MG PO (08:43)
[2024-05-21] MEDS: COLACE PO (08:43)
[2024-05-21] MEDS: CARDIZEM CD 120 MG PO (08:43)
[2024-05-21] MEDS: DESENEX/MITRAZOL/ZEASORB 1 APPLIC TOPICAL ×2 (08:43→16:55)
[2024-05-21] MEDS: DEMADEX 20 MG PO (08:43)
[2024-05-21] MEDS: CYMBALTA DELAYED RELEASE 60 MG PO (08:43)
--- NOTE | 2024-05-21 09:29 | W.PN.ID1 ---
Date of Service
Date of Service: May 21, 2024
Today's Communication
-Continue Vancomycin 500mg IV MWF with dialysis, last dose 05/31/24.
Assessment / Plan
# HD catheter infection with MRSA
# ESRD on HD MWF
# DM
- Outpatient cath site swab reportedly +MRSA. Requested outside culture, not yet received
-Follow blood cx's.
- 05/17 HD cath removed. Cath tip MRSA
-Blood cx's x 2 neg
-Continue Vancomycin 500mg IV MWF with dialysis, last dose 05/31/24.
- Infusion sheet submitted to correctional counselor/case manager to fax to dialysis center.
- For permanent HD cath placement today then dc back to [facility].
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
DM
Neuropathy
ESRD on HD via tunnelled catheter
Chronic hypoxic respiratory failure on O2
Chronic hypotension on midodrine
Afib
dCHF
hypothyroidism
Class III obesity BMI 63
Depression
Ambulatory dysfunction
Chief Complaint
-: Other (HD cath infection)
Subjective / Review of Systems
Discomfort over previous HD cath site resolved.
Vital Signs / Physical Exam
Vital Signs
Vital Signs
Temp Pulse Resp BP Pulse Ox
97.7 F 98 17 128/81 97
05/21/24 07:17 05/21/24 08:42 05/21/24 07:17 05/21/24 08:42 05/21/24 07:17
Physical Exam
Constitutional: Obese
Cardiovascular: Regular Rate and S1/S2
Pulmonary: Clear
Gastrointestinal: Soft, Non Tender, Non Distended and Normal Bowel Sounds
Extremities: Edema
Wound: Other (RCW previous cath site is dry, no longer indurated, no erythema, nontender)
Neurological: AO x 3
Objective Data
Lab Data
Lab Results
05/21/24 06:41
05/21/24 06:41
Estimated Creat Clear 32 ml/min 05/21/24 06:41
Most recent labs reviewed.
Micro Results:
05/15/24 15:33 Blood Culture - Final
Blood/Venous No Growth - Final Report
05/15/24 13:15 Blood Culture - Final
Blood/Venous No Growth - Final Report
05/16/24 14:10 Catheter Tip Culture - Final
Dialysis Line Staph aureus MRSA
05/18/24 08:38 C. difficile GDH Antigen & Toxins - Final
Feces/Stool Negative for toxigenic C.difficile
[2024-05-21 10:00] VITALS: BMI 58.2
[2024-05-21 11:00] VITALS: BP 124/82; BP_SYST 88
--- NOTE | 2024-05-21 11:52 | W.PN.HOSP.TC ---
Today's Communication/Plan
-
dc
await catheter placement
Assessment / Plan
Assessment / Plan
Physical Exam
General: Well Developed, Well Nourished, obese and No Apparent Distress
HEENT: NormoCephalic, Moist mucous membranes and Atraumatic
Respiratory: Clear
Cardiac: S1/S2 and Regular Rhythm; No Murmur or Rub
GI: Soft, Non Tender, Non Distended and Normal Bowel Sounds; No Organomegaly
Rectal: Deferred by Provider
Musculoskeletal: No Clubbing, No Cyanosis and No Edema
Skin: Other (right chest wall port site redness improving after removal of catheter). Left side vascular catheter in place.
Neuro: AO x 3 and Nonfocal/grossly intact
Psych: Calm
A/P:
#MRSA HD catheter site infection
-Outpatient site swab positive MRSA.
-Blood culture negative
-S/P HD cath removal after dialysis and culture tip on 05/16. Cultures positive Staphylococcus aureus.
-Status post new catheter on the left side on 05/17.
-Continue IV Abx
- Await Perm HD catheter placement.
-Appreciated ID consult
# ESRD on HD
Per nephrology:
Systolic blood pressure stable with current UF
#Diarrhea
Resolved
C. difficile negative
Imodium as needed
No abdominal pain
#Redness legs, resolved
Suspect related to chronic edema
Doppler negative for DVT
Already on appropriate antibiotics and this were to be infectious but less likely
She is also on anticoagulation but we held it for a couple of days. Continue current anticoagulation.
#hxt atrial fib, probably paroxysmal
-On Cardizem
-Back on Eliquis
#History of end-stage renal disease on dialysis Monday#
-Nephrology consulted--> HD per nephrology
# History of chronic diastolic heart failure
#chronic hypoxic respiratory failure on 2-3l
-Continue supplemental oxygen to keep sat greater than 92
-Wean as tolerated
-Patient is not in exacerbation
-Daily weight
-Torsemide continue
# Hypothyroidism
-Will continue Synthroid
# Hyponatremia, resolved
Na at 136
# Type 2 diabetes
Well controlled, AM glucose is stable
-Sliding scale
-CHO diet
-Lantus 12 units at bedtime
# Depression
-Duloxetine continued
# GERD
-PPI
#chronic Hypotension
cont midodrine
# DVT prophylaxis
-SCD
# CODE STATUS
-DNR
# Obesity, BMI 58. d/w pt, she reported she lost weight since few years ago and she intends to continue to loose weight. Counseling regarding benefit of weight loss and cut down calories, she verbalized understanding
# DVT prophylaxis
-On Eliquis
Total discharge time spent on today's encounter was 65 minutes which included time spent in counseling the patient/ consultants regarding dc plan.
Anticipated Discharge: Today
Subjective/Interval History
-
Date of Service: May 21, 2024
No complaints
await catheter placement
Objective Data
-
Labs:
Laboratory Results
05/21/24
06:41
WBC 4.7 L
Hgb 11.1 L
Hct 35.7 L
Plt Count 111 L
Sodium 136
Potassium 3.4 L
Chloride 99
Carbon Dioxide 27
BUN 28 H
Creatinine 3.0 H
Glucose 103 H
Calcium 9.7
Vital Signs:
Vital Signs
Temp Pulse Resp BP Pulse Ox
97.9 F 88 21 124/82 100
05/21/24 11:00 05/21/24 11:00 05/21/24 11:00 05/21/24 11:00 05/21/24 11:00
I&O
05/20/24 05/21/24 05/22/24
06:59 06:59 06:59
Intake Total 1380 / 1380 480 / 480
Balance 1380 / 1380 480 / 480
[2024-05-21 12:14] VITALS: BP 135/92; BP_SYST 91
[2024-05-21 12:50] LABS: Glucose - Point of Care 126 mg/dl (70-99)
[2024-05-21 12:57] VITALS: BP 134/84
--- NOTE | 2024-05-21 14:20 | W.PN.NEPH.PH ---
Today's Communication / Plan
-
Discharge back to [facility]
tunneled HD catheter in place
Patient will remain on vancomycin 500 mg IV Monday until last dose on 05/31/2024 for MRSA infection
Assessment/Plan
-
Assessment
ESRD
A-fib
Hypotension
Diabetes mellitus type 2
Hypothyroidism
MOrbid Obesity
Catheter exit site infection
Plan
Tunneled catheter in place
For discharge today back to [facility]
abx per ID
BP stable on midodrine
-
-
Date of Service: May 21, 2024
CC / HPI / ROS
-
Chief Complaint:
ESRD
History of Present Illness:
tolerated HD monday ESRD MWF
no fever, Bp stable
Tunneled dialysis catheter placed today
Review of Systems:
no cp or sob
no n/v
feels well
loose BMs
Labs
-
Labs:
WBC 4.7 10^3/uL (4.8-10.8) L 05/21/24 06:41
RBC 3.87 10^6/uL (4.20-5.40) L 05/21/24 06:41
Hgb 11.1 g/dL (12.0-16.0) L 05/21/24 06:41
Hct 35.7 % (37.0-47.0) L 05/21/24 06:41
Plt Count 111 10^3/uL (130-400) L 05/21/24 06:41
Sodium 136 mmol/L (135-145) 05/21/24 06:41
Potassium 3.4 mmol/L (3.5-5.1) L 05/21/24 06:41
Chloride 99 mmol/L (98-107) 05/21/24 06:41
Carbon Dioxide 27 mmol/L (22-30) 05/21/24 06:41
BUN 28 mg/dl (7-17) H 05/21/24 06:41
Creatinine 3.0 mg/dL (0.6-1.0) H 05/21/24 06:41
eGFR 17.69 05/21/24 06:41
Glucose 103 mg/dl (70-99) H 05/21/24 06:41
Calcium 9.7 mg/dl (8.4-10.2) 05/21/24 06:41
Phosphorus 5.2 mg/dl (2.5-4.5) H 05/15/24 13:15
Physical Exam
-
Vital Signs:
Vital Signs
Temp Pulse Resp BP Pulse Ox
97.5 F 85 20 134/84 99
05/21/24 12:57 05/21/24 13:02 05/21/24 12:57 05/21/24 13:02 05/21/24 12:57
Cardiovascular:: Regular rate and rhythm
Respiratory:: Bilateral: CTA (anteriorly)
Lung Excursion:: Normal
Abdomen:: Nontender and Soft
Extremity Edema:: +1: Bilateral: (chronic)
Gay Catheter: No
[2024-05-21 14:56] VITALS: BP 124/73
--- NOTE | 2024-05-21 15:13 | CM ---
Patient stable for discharge. Placed a call to Wendy Webster at [facility] who stated that they can accept patient patient back today. [facility] set patient up for 18:00. Time communicated to [facility].
Plan: Case management will continue to follow and assist with discharge planning. Back to [facility].
--- NOTE | 2024-05-21 16:07 | PHA.VAN.FU ---
Vancomycin Assessment / Plan
- Assessment
Hemodialysis Schedule: MWF
Last Hemodialysis performed: Mon 05/20
- Dosing Plan
Dosing by Level: Hold off on dosing today
- Monitoring Plan
Random Level: 2/5 prior to HD if remains admitted
Monitoring Comments: planned for discharge today
- Follow Up
Pharmacy will continue to follow.
Vancomycin Follow UP
- -
Patient Age: 54
Patient Sex: Female
Vancomycin Day #: 7
Indication: Skin And Soft Tissue
Requesting Provider: Az Germain / Dr. Beatty
Pertinent Antimicrobial Allergies:
NKDA
Height / Weight:
Height 5 ft 5 in
Actual Weight 158.712 kg
Pertinent Past Medical History: BMI ~58, ESRD on HD MWF
- Vital Signs / Lab Results
Temp Pulse Resp BP Pulse Ox
97.7 F 72 17 124/73 99
05/21/24 14:56 05/21/24 14:56 05/21/24 14:56 05/21/24 14:56 05/21/24 14:56
Lab Results - Hematology
05/19/24 05/20/24 05/21/24
07:01 07:41 06:41
WBC 5.4 4.6 L 4.7 L
Lab Results - Chemistry
05/19/24 05/20/24 05/21/24
07:01 07:41 06:41
BUN 31 H 38 H 28 H
Creatinine 3.1 H 3.7 H 3.0 H
Estimated Creat Clear 31 26 32
Microbiology Results
05/15/24 15:33 Blood Culture - Final
Blood/Venous No Growth - Final Report
05/15/24 13:15 Blood Culture - Final
Blood/Venous No Growth - Final Report
Therapeutic Drug Monitoring
Random Vancomycin 15.1 ug/ml 05/20/24 07:41
[2024-05-21 16:26] LABS: Glucose - Point of Care 136 mg/dl (70-99)
--- NOTE | 2024-05-21 16:55 | W.DCSUMMARY ---
Discharge Summary
Discharge Data
Date of Admission: 05/15/24
Date of Discharge: 05/21/24
-
Pending Results: No
Hospital Course
54 years old female who came in from [facility] in [place] due to the suspected dialysis catheter infection. Patient was receiving hemodialysis for end-stage renal disease via tunneled catheter that was positive MRSA. Catheter site was with
edema and pain, it was swabbed for culture and she was started on Cipro bid for which she had 5 doses. The swab culture resulted as MRSA and therefore she was sent to ED. Pt denied fevers or chills. Patient was seen by infectious diseases doctor
and court operations clerk. She was started on vancomycin. Blood culture was drawn and remained with no growth. Tunneled catheter was removed. Tip of the catheter tested positive for MRSA. Patient had successful placement of nontunneled left internal
jugular hemodialysis catheter which was ready to be used. Patient underwent hemodialysis without complications in the hospital. Patient received tunneled left internal jugular hemodialysis catheter on 04/20/24 without complications. ID doctor
recommended to continue course of intravenous vancomycin 500 mg Monday, Monday, Monday, last dose on 05/31/24. Patient remained hemodynamically stable and was discharged [facility] to [facility] in a stable condition.
Discharge Plan
-
Patient Disposition: Detention/SNF
Discharge Diagnosis/Procedures: HD catheter infection with MRSA
Continue Vancomycin 500mg IV MWF with dialysis, last dose 05/31/24.
Diet: Diabetic, Carb Controlled
Referrals:
Jorge Miranda DO [Family Provider] -
Prescriptions:
New
VANCOMYCIN Pharmacy to Dose [VANCOCIN Pharmacy to Dose] 1 EACH
Pharmacy To Prepare [Call Pharmacy To Prepare] 0 ML
As Directed mls/hr IV PER PROTOCOL
Ordered By: Nikunj Guzmán MD
Last Taken: Unknown
Protocol: None
Protocol Text:
DOSING PER PHARMACY
Please contact pharmacy with any questions.
Continued
sennosides [senna] 8.6 mg Tablet
17.2 mg PO DAILY
acetaminophen [Tylenol] 325 mg Tablet
650 mg PO Q6HPRN PRN (Reason: mild pain)
torsemide 20 mg Tablet
20 mg PO DAILY
lidocaine 4 % Adhesive Patch,Medicated
1 patch TOPICAL DAILY
cetirizine [Zyrtec] 10 mg Tablet
10 mg PO HS
ondansetron HCl 8 mg Tablet
8 mg PO Q6HPRN PRN (Reason: nausea)
simethicone [Gas-X Extra Strength] 125 mg Capsule
125 mg PO Q6HPRN PRN (Reason: gas pain)
potassium chloride 10 mEq Tablet Extended Release
20 meq PO HS
melatonin 3 mg Tablet
3 mg PO HS
levothyroxine [Synthroid] 75 mcg Tablet
275 mcg PO DAILY
famotidine [Pepcid] 20 mg Tablet
20 mg PO HS
diltiazem HCl 120 mg Capsule,Extended Release 24hr
120 mg PO DAILY
bisacodyl [Dulcolax (bisacodyl)] 10 mg Suppository
10 mg MN DAILYPRN PRN (Reason: if no bm aftr mom)
docusate sodium [Colace] 100 mg Capsule
100 mg PO BID
hydrocortisone 2.5 % Cream
1 applic TOPICAL BID
hydroxyzine HCl 25 mg Tablet
25 mg PO TID
bisacodyl [Dulcolax (bisacodyl)] 5 mg Tablet,Delayed Release (Dr/Ec)
10 mg PO DAILY
nystatin 100,000 unit/gram Powder
1 applic TOPICAL TID
sorbitol 70 % Solution
30 ml PO DAILYPRN PRN (Reason: constipation)
midodrine 10 mg Tablet
10 mg PO MOWEFR
Rx Instructions:
take 1 hour before dialysis
midodrine 10 mg Tablet
10 mg PO TID
pregabalin [Lyrica] 75 mg Capsule
75 mg PO Q48H
insulin glargine [Lantus Solostar U-100 Insulin] 100 unit/mL (3 mL) Insulin Pen
12 unit SC HS
Eliquis 5 mg Tablet
5 mg PO BID
duloxetine 60 mg Capsule, Delayed Rel Sprinkle
60 mg PO DAILY
Ozempic 0.25 mg or 0.5 mg (2 mg/3 mL) Pen Injector
0.25 mg SC FR
Rx Instructions:
for 4 weeks
tramadol 25 mg Tablet
25 mg PO Q6HPRN PRN (Reason: moderate pain)
Discontinued
ciprofloxacin HCl 500 mg Tablet
500 mg PO BID
Patient Comments:
for 10 days starting 05-11-24
Discharge Orders:
Discharge Patient (As Directed); Ordered 05/20/24
Ordered By: Nikunj Guzmán
Discharge Date and Time
Discharge Date/Time: 05/21/24 19:00
Print Language: FAROESE
[2024-05-21] MEDS: LYRICA 75 MG PO (17:00)
== END 2024-05-21 19:00 | DRG 314 ==
LOC: 3 WEST ACU 14:00
PROVIDERS: Hospitalist; Nurse Practitioner Family; Radiology Diagnostic Radiology; Radiology Vascular & Interventional Radiology; Registered Nurse; ADMITTING PHYSICIAN Hospitalist; ATTENDING PHYSICIAN Internal Medicine; CONSULT PHYSICIAN Specialist; EMERGENCY PHYSICIAN Emergency Medicine; FAMILY PHYSICIAN Internal Medicine; OTHER PHYSICIAN Internal Medicine Infectious Disease
PROC: 02PA33Z Removal of Infusion Device from Heart, Percutaneous Approach (ICD-10-PCS; 2024-05-16)
PROC: 5A1D70Z Performance of Urinary Filtration, Intermittent, Less than 6 Hours Per Day (ICD-10-PCS; 2024-05-16)
PROC: 02H633Z Insertion of Infusion Device into Right Atrium, Percutaneous Approach (ICD-10-PCS; 2024-05-17)
PROC: 0JH63XZ Insertion of Tunneled Vascular Access Device into Chest Subcutaneous Tissue and Fascia, Percutaneous Approach (ICD-10-PCS; 2024-05-21)
DX: T82.7XXA Infection and inflammatory reaction due to other cardiac and vascular devices, implants and grafts, initial encounter (principal); N18.6 End stage renal disease; I13.2 Hypertensive heart and chronic kidney disease with heart failure and with stage 5 chronic kidney disease, or end stage renal disease; Z68.44 Body mass index [BMI] 60.0-69.9, adult; J96.11 Chronic respiratory failure with hypoxia; I50.32 Chronic diastolic (congestive) heart failure; Z66 Do not resuscitate; E11.22 Type 2 diabetes mellitus with diabetic chronic kidney disease; E66.813 Obesity, class 3; F32.A Depression, unspecified; E11.40 Type 2 diabetes mellitus with diabetic neuropathy, unspecified; E03.9 Hypothyroidism, unspecified; D63.1 Anemia in chronic kidney disease; K21.9 Gastro-esophageal reflux disease without esophagitis; I95.89 Other hypotension; I48.0 Paroxysmal atrial fibrillation; B95.62 Methicillin resistant Staphylococcus aureus infection as the cause of diseases classified elsewhere; Z79.01 Long term (current) use of anticoagulants; Z79.4 Long term (current) use of insulin; Z79.85 Long-term (current) use of injectable non-insulin antidiabetic drugs; Z99.81 Dependence on supplemental oxygen; Z99.2 Dependence on renal dialysis; Z79.899 Other long term (current) drug therapy; Z79.890 Hormone replacement therapy; Y71.2 Prosthetic and other implants, materials and accessory cardiovascular devices associated with adverse incidents; Y84.8 Other medical procedures as the cause of abnormal reaction of the patient, or of later complication, without mention of misadventure at the time of the procedure
CPT/HCPCS: 36556; 36558; 36589; 71045; 76937; 77001; 80048; 80202; 82962; 83036; 83735; 84100; 85025; 85027; 87040; 87084; 87147; 87186; 87324; 87340; 87449; 93005; 93971; 96365; 96366; 99152; 99153; 99285; C1750; C1752; G0257; P9047

== ENCOUNTER 2024-08-17 04:17 | Inpatient (IN) | payer BC, MEDICAID, SELFPAY ==
[2024-08-16 21:52] VITALS: BP 101/83
[2024-08-16 22:00] VITALS: BP 107/80
[2024-08-16 22:16] LABS: % Basophils 0.5 % (0-2); % Eosinophils 1.8 % (0-6); % Immature Granulocytes 0.9 % (0-0.5); % Lymphocytes 17.1 % (20.5-51.1); % Monocytes 8.5 % (1.7-9.3); % Neutrophils 71.2 % (42.2-75.2); Absolute Basophils 0.1 10^3/uL (0-0.2); Absolute Eosinophils 0.2 10^3/uL (0-0.7); Absolute Immature Granulocytes 0.1 10^3/uL (0-0.05); Absolute Lymphocytes 1.7 10^3/uL (1.2-3.4); Absolute Monocytes 0.9 10^3/uL (0.1-0.6); Absolute Neutrophils 7.2 10^3/uL (1.4-6.5); Hematocrit 39.6 % (37.0-47.0); Hemoglobin 13.2 g/dL (12.0-16.0); Mean Corp Hgb Conc. 33.3 g/dL (33.0-37.0); Mean Corpuscular Hgb 28.7 pg (27.0-31.0); Mean Corpuscular Volume 86.1 fL (81.0-99.0); Nucleated Red Blood Cells % 0.2 %; Platelet Count 107 10^3/uL (130-400); Red Cell Dist. Width 16.2 % (11.5-14.5); White Blood Cell Count 10.2 10^3/uL (4.8-10.8)
[2024-08-16 22:19] LABS: PT 17.4 Sec (11.4-14.6)
[2024-08-16 22:20] LABS: APTT 32.9 Sec (23.4-35.0)
[2024-08-16 22:33] LABS: ALT (SGPT) 17 U/L (0-35); AST (SGOT) 27 U/L (14-36); Albumin 2.6 g/dl (3.5-5.0); Alkaline Phosphatase 193 U/L (38-126); Blood Urea Nitrogen 33 mg/dl (7-17); Carbon Dioxide 23 mmol/L (22-30); Chloride 102 mmol/L (98-107); Estimated Creatinine Clearance 16 ml/min; Glucose 85 mg/dl (70-99); Potassium 3.9 mmol/L (3.5-5.1); Sodium 134 mmol/L (135-145); Total Bilirubin 1.8 mg/dl (0.2-1.3); Total Protein 6.2 g/dl (6.3-8.2); eGFR 8.19
[2024-08-16 23:00] VITALS: BP 98/75
[2024-08-17] VITALS (60 sets, daily range): BP systolic 49–130; BP diastolic 27–105; BMI 49.0
--- NOTE | 2024-08-17 00:58 | ED.GENMED ---
History of Present Illness
General
Chief Complaint: Rectal Bleeding
Source: patient and records
Exam Limitations: none
Time Seen by Provider: 08/17/24 00:39
Nursing documentation reviewed up to this point in time: agreed with
History of Present Illness
History of Present Illness:
54-year-old female with a past medical history of CHF, atrial fibrillation on Eliquis, diabetes, morbid obesity, ESRD on dialysis who presents to the emergency department for evaluation of rectal bleeding. Patient reports that she has been having
chronic loose stools. She says that over the past few days she has had some scant amount of blood in her stools. Today when staff that [facility] changed her diaper they noted that there was a large amount of bloody stool with large clots. She
was referred to the ER for evaluation. She denies any significant abdominal pain. She reports she is chronic nausea because she is on Ozempic but no vomiting. She denies any shortness of breath, chest pain, palpitations, dizziness. She is on
dialysis, says that she missed her dialysis session today, last treatment was Monday.
Review of Systems
Review of Systems
All Other Systems: ROS reviewed and negative except as documented in HPI and ROS
Constitutional: Denies fever
Respiratory: Denies trouble breathing
Cardiac: Denies chest pain or palpitations
ABD/GI: Reports diarrhea and bloody stools; Denies abdominal pain, nausea or vomiting
: Denies flank pain
Musculoskeletal: Denies neck pain or back pain
Neurological: Denies dizzy
Phy Exam
Physical Exam
Physical Exam:
General: Awake, alert, oriented x3; chronically ill-appearing but in no acute distress
Head: Normocephalic, atraumatic
Eyes: Conjunctiva normal, sclera anicteric
Throat: Airway intact, handling secretions
Neck: Trachea midline
Lungs: Clear to auscultation bilaterally, no wheezing, rales, rhonchi
Heart: Tachycardia with irregular rhythm, no murmurs, gallops, or rubs; left chest wall dialysis catheter in place
Abd: Obese but soft, non distended, nontender
Rectal: Bright red blood mixed with stool
Neuro: No gross deficits
Extremities: Bilateral lower extremity edema
Scores
Heart Failure Risk
Heart Failure Risk Score: Not Applicable
Heart Score for Chest Pain Patients
STEMI patient?: Not applicable
Withdrawal Assessment of Alcohol
Withdrawal Assessment Completed?: Not applicable
Course
Orders/Labs/Results
Orders:
Orders
08/16/24 21:53
Cardiac Monitoring- Treatment ONCE
IV Insert/Care/Rem.- Treatment PRN
O2 Therapy [RESP] Urgent
Titrate/Wean O2 to maintain O2 sat greater than (%): 93
Special Instructions: MAINTAIN CONTINOUS O2 SATS > OR = 93%
Pulse Ox/spot Check [RESP] Urgent
Quantity: 1
Special Instructions: ON ROOM AIR
08/16/24 21:54
Electrocardiogram (*1) Urgent
Reason for Study: Abdominal Pain
EKG- Treatment ONCE
08/16/24 21:56
Type+Screen Urgent
Complete Blood Count/With Diff Urgent
Comprehensive Metabolic Panel Urgent
PTT Urgent
Prothrombin Time Urgent
08/16/24 23:21
ABO2 Urgent
BBK Wristband Number:
Associate notified that ABO2 has been ordered: [id number]
Date: 08/16/24
Time: 22:33
Pillowcase Cutter ID: [id number]
08/17/24 00:56
Electrocardiogram (*1) Urgent
Reason for Study: Tachycardia
EKG- Treatment ONCE
Metoprolol [Lopressor] 5 mg IV NOW STA
Abnormal Lab Results
08/16/24
21:56
RDW 16.2 H %
(11.5-14.5)
Plt Count 107 L 10^3/uL
(130-400)
MPV 11.0 H fL
(7.4-10.4)
Abs Immat Gran (auto) 0.1 H 10^3/uL
(0-0.05)
Absolute Neuts (auto) 7.2 H 10^3/uL
(1.4-6.5)
Absolute Monos (auto) 0.9 H 10^3/uL
(0.1-0.6)
Immature Gran % 0.9 H %
(0-0.5)
Lymphocytes % 17.1 L %
(20.5-51.1)
PT 17.4 H Sec
(11.4-14.6)
Sodium 134 L mmol/L
(135-145)
BUN 33 H mg/dl
(7-17)
Creatinine 5.7 H* mg/dL
(0.6-1.0)
Total Bilirubin 1.8 H mg/dl
(0.2-1.3)
Alkaline Phosphatase 193 H U/L
(38-126)
Total Protein 6.2 L g/dl
(6.3-8.2)
Albumin 2.6 L g/dl
(3.5-5.0)
08/16/24 21:56
08/16/24 21:56
Vital Signs
Initial and Last Documented VS:
Initial Vital Signs
Temp Pulse Resp Pulse Ox
36.3 C 132 18 92
08/16/24 21:45 08/16/24 21:45 08/16/24 21:45 08/16/24 21:45
Last Documented Vital Signs
Temp Pulse Resp BP Pulse Ox
36.3 C 107 20 126/75 96
08/16/24 21:45 08/17/24 00:00 08/17/24 00:00 08/17/24 00:00 08/17/24 00:00
MDM/Problems Addressed
Differential Diagnosis Includes:
GI bleeding�diverticular bleed, polyp, AVM, etc
MDM/Problems Addressed:
54-year-old female with history as noted presents for rectal bleeding. Noted to be tachycardic heart rate in 130s and irregular on the monitor; normotensive and otherwise normal vitals. Physical exam as above noted to have bright red blood mixed
with stool on rectal examination. Labs sent in triage including a CBC which shows normal hemoglobin 13.2; mild thrombocytopenia is chronic. Her CMP shows ESRD but acceptable electrolytes�due for dialysis today but missed her session. Type and
screen sent off. Consent for blood obtained in case of need. Will give IV Lopressor for rapid A-fib. Admit for trending of hemoglobin and monitor of bleeding. Discussed with hospitalist.
Chronic conditions affecting care:
A-fib on Eliquis complicates bleeding
Acute Exacerbation and/or Progression of Chronic Illness:
Acute exacerbation of chronic A-fib treated with Lopressor
Acute Exacerbation and/or Progression of Chronic Illness: Arrhythmia
*Pulse Oximetry
Patient hypoxic: no
*Critical Care Note
Total Time (30-74mins, 75-104mins- exclusive of procedures): 30
comment:
Critical care statement: A total of 30 minutes of critical care time was provided for this patient. This includes management of unstable vital signs, evaluation of the patient at bedside, frequent reassessment, discussion with
consultants/hospitalist, and review of pertinent medical records. This time was separate from time utilized to perform any aforementioned documented procedures
Data Reviewed
Review of Other/Old Records Reveals: Labs and Records
Source: patient and records
Patient Management
Discussion with other providers: Hospitalist (Discussed with hospitalist)
Escalation/DeEscalation of care consider admission/obs:
Admission indicated
ED Attending Note
-
Portions of this chart may have been created with voice recognition software.� Occasional wrong word or��sound alike� substitutions may have occurred due to the inherent limitations of voice recognition software.
Discharge Plan
Departure
Admit to doctor: Korey
Presentation/result/management discussed w/ accepting MD/DO: Hospitalist
Discharge Problem:
Acute lower gastrointestinal bleeding, Atrial fibrillation with RVR
Prescriptions:
No Action
sennosides [senna] 8.6 mg Tablet
17.2 mg PO DAILY
acetaminophen [Tylenol] 325 mg Tablet
650 mg PO Q6HPRN PRN (Reason: mild pain)
torsemide 20 mg Tablet
20 mg PO DAILY
lidocaine 4 % Adhesive Patch,Medicated
1 patch TOPICAL DAILY
cetirizine [Zyrtec] 10 mg Tablet
10 mg PO HS
ondansetron HCl 8 mg Tablet
8 mg PO Q6HPRN PRN (Reason: nausea)
simethicone [Gas-X Extra Strength] 125 mg Capsule
125 mg PO Q6HPRN PRN (Reason: gas pain)
potassium chloride 10 mEq Tablet Extended Release
20 meq PO HS
melatonin 3 mg Tablet
3 mg PO HS
levothyroxine [Synthroid] 75 mcg Tablet
275 mcg PO DAILY
famotidine [Pepcid] 20 mg Tablet
20 mg PO HS
diltiazem HCl 120 mg Capsule,Extended Release 24hr
120 mg PO DAILY
bisacodyl [Dulcolax (bisacodyl)] 10 mg Suppository
10 mg OH DAILYPRN PRN (Reason: if no bm aftr mom)
docusate sodium [Colace] 100 mg Capsule
100 mg PO BID
hydrocortisone 2.5 % Cream
1 applic TOPICAL BID
hydroxyzine HCl 25 mg Tablet
25 mg PO TID
bisacodyl [Dulcolax (bisacodyl)] 5 mg Tablet,Delayed Release (Dr/Ec)
10 mg PO DAILY
nystatin 100,000 unit/gram Powder
1 applic TOPICAL TID
sorbitol 70 % Solution
30 ml PO DAILYPRN PRN (Reason: constipation)
midodrine 10 mg Tablet
10 mg PO MOWEFR
Rx Instructions:
take 1 hour before dialysis
midodrine 10 mg Tablet
10 mg PO TID
pregabalin [Lyrica] 75 mg Capsule
75 mg PO Q48H
insulin glargine [Lantus Solostar U-100 Insulin] 100 unit/mL (3 mL) Insulin Pen
12 unit SC HS
Eliquis 5 mg Tablet
5 mg PO BID
duloxetine 60 mg Capsule, Delayed Rel Sprinkle
60 mg PO DAILY
Ozempic 0.25 mg or 0.5 mg (2 mg/3 mL) Pen Injector
0.25 mg SC FR
Rx Instructions:
for 4 weeks
tramadol 25 mg Tablet
25 mg PO Q6HPRN PRN (Reason: moderate pain)
VANCOMYCIN Pharmacy to Dose [VANCOCIN Pharmacy to Dose] 1 EACH
Pharmacy To Prepare [Call Pharmacy To Prepare] 0 ML
As Directed mls/hr IV PER PROTOCOL
Ordered By: Nikunj Guzmán MD
Last Taken: Unknown
Protocol: None
Protocol Text:
DOSING PER PHARMACY
Please contact pharmacy with any questions.
Referrals:
Madison Martinez, DO [Family Provider] -
Interventions
Interventions:
*Neglect/Abuse Screening Last Done: 08/16/24 21:59
*ED COVID-19 Vaccine History Last Done: 08/16/24 22:05
KI-Pjtatd-Ubfrzrckds Assessment Last Done: 08/16/24 22:01
ED- Cardiac Assessment Last Done: 08/16/24 22:00
ED- Pulmonary Assessment Last Done: 08/16/24 22:01
Discharge Date and Time
Print Language: BENGALI
[2024-08-17] MEDS: NSS 500 IV (02:46)
[2024-08-17] MEDS: LOPRESSOR 5 MG IV (03:24)
--- NOTE | 2024-08-17 04:08 | HPS.HSE ---
Family Physician
-
Family Physician: Madison Martinez
Chief Complaint
-
Diarrhea, BRBPR
History of Present Illness
Patient is a 54y F with PMH significant for A-Fib, ESRD on HD and morbid obesity who presents to ED from local [facility] for evaluation of bloody stools. Patient states that she has been having loose stools / diarrhea for some time - she estimates
several weeks at least. She has occasional crampy abdominal discomfort. She denies any N/V. Patient reports small amount of bright red blood mixed in the stool for 2-3 days. Today at the [facility], staff noted bright red blood and clots in her
diaper and patient was sent to the ED for further evaluation.
Patient takes Eliquis for A-Fib.
She is on HD MWF though she did not attend today's session due to diarrhea / feeling poorly.
Her last session was on Monday and she states this was only 1/2 session - also due to diarrhea.
Medical History
Past Medical History
Past Medical History: Reports Other
Additional Past Medical History:
A-fib
Hypertension
End-stage renal disease
Anemia
CHF
Hypothyroidism
Type 2 diabetes
Depression
GERD
MRSA Catheter Infection
Past Surgical History: Reports Other
Additional Past Surgical History:
Left IJ HD Catheter
Social History
Tobacco: Non-smoker
Alcohol: None
Drug: None
Personal: Single
Living: Fdc
Family History
Family History: Not pertinent
Allergies / Home Medications
Allergies reflects when Allergies were last updated in [employer].
Home Medications with original date entered in [employer]
Allergy/Medication List:
Allergies
Allergy/AdvReac Type Severity Reaction Status Date / Time
No Known Allergies Allergy Unverified 05/15/24 12:12
Home Medications
acetaminophen 325 mg tablet (Tylenol) 650 mg PO Q6HPRN PRN mild pain 05/15/24
apixaban 5 mg tablet (Eliquis) 5 mg PO BID Blood Clot Prevention/Tx 05/15/24
bisacodyl 5 mg tablet,delayed release (Dulcolax (bisacodyl)) 10 mg PO DAILY Constipation 05/15/24
cetirizine 10 mg tablet (Zyrtec) 10 mg PO HS Allergies 05/15/24
diltiazem HCl 120 mg capsule,24 hr,extended release 120 mg PO DAILY Blood Pressure 05/15/24
docusate sodium 100 mg capsule (Colace) 100 mg PO BID Constipation 05/15/24
duloxetine 60 mg capsule,delayed release sprinkle 60 mg PO DAILY depression/anxiety/pain 05/15/24
famotidine 20 mg tablet (Pepcid) 20 mg PO HS Gastrointestinal Issue 05/15/24
lidocaine 4 % topical patch 1 patch topical DAILY left shoulder 05/15/24
midodrine 10 mg tablet 10 mg PO MOWEFR PRN BP < 90/60 05/15/24
midodrine 10 mg tablet 10 mg PO TID orthostatic hypotension 05/15/24
nystatin 100,000 unit/gram topical powder 1 applic topical TID breats, belly, groin 05/15/24
ondansetron HCl 8 mg tablet 8 mg PO Q6HPRN PRN nausea 05/15/24
potassium chloride 10 mEq tablet,extended release 30 meq PO DAILY Electrolyte Repletion 05/15/24
pregabalin 75 mg capsule (Lyrica) 75 mg PO Q48H neuropathic pain 05/15/24
semaglutide 0.25 mg or 0.5 mg (2 mg/3 mL) subcutaneous pen injector (Ozempic) 0.25 mg SC FR weight management 05/15/24
sennosides 8.6 mg tablet (senna) 17.2 mg PO DAILY Constipation 05/15/24
simethicone 125 mg capsule (Gas-X Extra Strength) 125 mg PO Q6HPRN PRN gas pain 05/15/24
sorbitol 70 % solution 30 ml PO DAILYPRN PRN constipation 05/15/24
torsemide 20 mg tablet 20 mg PO DAILY Fluid Retention/Swelling 05/15/24
tramadol 25 mg tablet 25 mg PO Q6HPRN PRN moderate pain 05/15/24
levothyroxine 112 mcg tablet 112 mcg PO DAILY 08/17/24
loperamide 2 mg tablet (Imodium A-D) 2 mg PO Q6H PRN diarrhea 08/17/24
potassium chloride 10 mEq tablet,extended release (Klor-Con) 10 meq PO HS 08/17/24
Review of Systems
-
History Source: Patient
A 12 point ROS was completed and negative except as noted: Yes
Constitutional: Reports Fatigue; Denies Fever or Chills
Respiratory: Denies Cough or Trouble Breathing
Cardiac: Denies Chest Pain or Palpitations
Abdomen/GI: Reports Abdominal Pain, Diarrhea and Bloody Stools; Denies Nausea or Vomiting
: Denies Dysuria or Frequency
Musculoskeletal: Denies Joint Pain or Edema
Neurological: Denies Dizzy or Headache
Psych: Denies Depression or Anxiety
Physical Exam
Vital Signs
Vital Signs
Temp Pulse Resp BP Pulse Ox
97.4 F 132 20 113/73 98
08/16/24 21:45 08/17/24 03:45 08/17/24 03:45 08/17/24 03:30 08/17/24 03:55
Physical Exam
General: Other (54y F appears older than stated age. Not in acute distress.)
HEENT: Moist mucous membranes and Other (Thick neck. L IJ tunneled HD catheter in place. Site well-appearing.)
Respiratory: Clear; No Wheezes, Rales or Rhonchi
Cardiac: S1/S2, Irregular Rhythm and Tachycardia; No Murmur
GI: Other (Obese, mildly / diffusley tender. Pos BS.)
Musculoskeletal: No Clubbing, No Cyanosis and Other (No pitting edema.)
Neuro: AO x 3
Laboratory Results
-
08/16/24 21:56
Laboratory Results
PT 17.4 Sec (11.4-14.6) H 08/16/24 21:56
INR 1.40 08/16/24 21:56
APTT 32.9 Sec (23.4-35.0) 08/16/24 21:
Total Bilirubin 1.8 mg/dl (0.2-1.3) H 08/16/24 21:56
AST 27 U/L (14-36) 08/16/24 21:
ALT 17 U/L (0-35) 08/16/24:
Alkaline Phosphatase 193 U/L (38-126) H 08/16/24:56
Impression/Plan
-
A/P: Patient is a 54y F with PMH significant for A-Fib on Eliquis, ESRD on HD and morbid obesity who presents to ED for evaluation of BRBPR / diarrhea.
BRBPR
Diarrhea
- Admit for further evaluation and treatment.
- Multiple potential etiologies including infectious colitis, ischemic colitis, diverticular bleeding, etc.
- Hgb is actually increased from prior - follow serial H&H for changes.
- Hold Eliquis acutely.
- GI evaluation for additional recommendations / possible endoscopic examination.
- Monitor for any further bleeding.
- Check stool studies to rule out infectious etiology.
- Avoid hypotension / hypoperfusion (see below).
Chronic Hypotension
- Patient maintained on midodrine daily + extra on HD days.
- BP initially in the ED was 80/70 - now improved.
- Continue usual midodrine.
- Volume management on HD.
- Risk for ischemic colitis / hypoperfusion given chronic hypotension.
ESRD on HD
- Stable. No acute HD needs though last HD was only a half-session on Monday.
- Nephrology eval for HD needs during stay.
- Continue current diuretics and potassium replacement (?) medications.
- Follow labs / lytes and adjust as needed.
- Follow I/Os, daily weights, etc.
Paroxysmal Atrial Fibrillation
- Presented with rapid rates in the 120-140 range, now somewhat improved
- Continue Cardizem with holding parameters.
- Adjust med regimen as needed for rate control / avoidance of hypotension.
- Holding Eliquis acutely given GI bleeding as noted above.
Chronic HFpEF
Chronic Hypoxemic Respiratory Failure
- Stable. No evidence of gross volume overload on exam.
- Continue current torsemide and follow weights, I/Os.
- Continue usual O2 supplementation (2-3 lpm).
- Follow for any clinical changes.
DM-II
- No longer on any insulin per [facility] JUN.
- Hold Ozempic given acute GI complaints.
- Follow glucose and cover with SSI as needed.
- Update A1C.
Hypothyroidism
- Continue current T4 replacement.
Morbid Obesity due to excess calories
- Affects all aspects of care.
- Note that patient has experienced marked weight loss since her initial hospitalization - states that she previously weighed > 500 lbs.
- Continue healthy diet and activity as tolerated.
DVT Prophylaxis: SCDs while anticoagulation on hold.
Code Status: DNR
[2024-08-17 04:15] LABS: Hematocrit 37.7 % (37.0-47.0); Hemoglobin 12.3 g/dL (12.0-16.0)
[2024-08-17 06:22] LABS: Hematocrit 36.9 % (37.0-47.0); Hemoglobin 12.2 g/dL (12.0-16.0); Mean Corp Hgb Conc. 33.1 g/dL (33.0-37.0); Mean Corpuscular Hgb 27.9 pg (27.0-31.0); Mean Corpuscular Volume 84.4 fL (81.0-99.0); Mean Platelet Volume 10.1 fL (7.4-10.4); Platelet Count 97 10^3/uL (130-400); Red Blood Cell Count 4.37 10^6/uL (4.20-5.40); Red Cell Dist. Width 16.3 % (11.5-14.5); White Blood Cell Count 10.5 10^3/uL (4.8-10.8)
[2024-08-17 06:36] LABS: Blood Urea Nitrogen 36 mg/dl (7-17); Calcium 8.9 mg/dl (8.4-10.2); Carbon Dioxide 25 mmol/L (22-30); Chloride 102 mmol/L (98-107); Estimated Creatinine Clearance 15 ml/min; Glucose 88 mg/dl (70-99); Magnesium 1.9 mg/dl (1.6-2.3); Phosphorus 4.6 mg/dl (2.5-4.5); Potassium 3.4 mmol/L (3.5-5.1); Sodium 135 mmol/L (135-145); eGFR 7.55
[2024-08-17] MEDS: SYNTHROID 112 MCG PO (06:40)
[2024-08-17 07:48] LABS: Glucose - Point of Care 104 mg/dl (70-99)
--- NOTE | 2024-08-17 08:20 | CON.GI ---
Consultation
-
Date/Time Consultation Requested: 08/17/2024
Date/Time Consultation Performed: 08/17/2024
Requesting Provider: ER
Performing Provider: Dr. Polo
Reason for Consultation: Diarrhea and bright red blood
Medical History
Chief Complaint / HPI
Chief Complaint: Diarrhea bright red blood
History of Present Illness:
Patient is a 54-year-old female with history of A-fib on Eliquis, end-stage renal disease on dialysis, morbid obesity with a BMI of 54, bedbound as she is unable to use her legs sent to the emergency room from a local [place] [facility] due to bloody
stools. Patient states she has been having diarrhea for several weeks but cannot tell me exactly how long and the last couple of days was mixed with a small amount of bright red blood. According to the [place] [facility] staff noted some bright
red blood and clots in her diaper and she was sent to the emergency room for evaluation. She does not see her stools but says the nursing staff tells her. Last session of dialysis was on Monday which was cut in half due to her diarrhea.
She also has been on Ozempic she believes since about April. She is unclear if the diarrhea started around the same time as the Ozempic. She has noticed significant drop in appetite. She states since starting dialysis back at the end of 2022
she has lost over 100 pounds. Says she was over 500 pounds in 2022
Currently she states her tongue feels swollen but does not appear swollen and makes it somewhat difficult for her to swallow the pills which I watched her swallow with applesauce and liquids. She has no oral thrush.
She denies any significant heartburn or reflux and is taking Pepcid at night. No significant nausea but yesterday states she vomited twice.
She does note some tight abdominal discomfort that would last less than an hour and she could see her stomach tense up and move. She was not sure if that correlated with the bowel movements.
Currently on the pad she has some mucoid appearing brown stool. She is incontinent of stools which she has been incontinent for a while now but cannot give me a timeline.
She has never had a colonoscopy or any GI workup
she is unaware of having any liver disease.
She tells me her dialysis is likely permanent
In the emergency room her blood pressure was 110/84, heart rate 121 afebrile normal oxygen saturation. Hemoglobin is 12.2, platelets 97, white count 10.5. It appears her platelets have been trending down since May and were 141 in April.
Her alkaline phosphatase is elevated at 193, total bilirubin 1.8 with no direct to review, normal ALT and AST. No imaging to review, no stool studies yet this admission but did have a negative C. difficile on May 18.
Patient is on multiple outpatient medications including Ozempic, Eliquis, Pepcid at night
Her most recent admission here was in May due to a suspected dialysis catheter infection which was positive for MRSA and was on significant antibiotics at that time
Past Medical History
Past Medical History: Other (Atrial fibrillation on Eliquis, hypertension, end-stage renal disease on dialysis Monday, chronic anemia, CHF, type 2 diabetes, morbid obesity with a BMI 54, prior MRSA hemodialysis catheter infection)
Past Surgical History: Other (No surgeries other than an hemodialysis catheter placement)
Social History
Tobacco: Non-Smoker
Alcohol: None
Drug: None
Personal: Single
Living: Intermediate
Allergies / Home Medications
Allergy/AdvReac Type Severity Reaction Status Date / Time
No Known Allergies Allergy Unverified 05/15/24 12:12
�Medication �Instructions �Recorded
acetaminophen 325 mg tablet 650 mg PO Q6HPRN PRN mild pain 05/15/24
(Tylenol)
apixaban 5 mg tablet (Eliquis) 5 mg PO BID Blood Clot 05/15/24
Prevention/Tx
bisacodyl 5 mg tablet,delayed 10 mg PO DAILY Constipation 05/15/24
release (Dulcolax (bisacodyl))
cetirizine 10 mg tablet (Zyrtec) 10 mg PO HS Allergies 05/15/24
diltiazem HCl 120 mg capsule,24 120 mg PO DAILY Blood Pressure 05/15/24
hr,extended release
docusate sodium 100 mg capsule 100 mg PO BID Constipation 05/15/24
(Colace)
duloxetine 60 mg capsule,delayed 60 mg PO DAILY 05/15/24
release sprinkle depression/anxiety/pain
famotidine 20 mg tablet (Pepcid) 20 mg PO HS Gastrointestinal Issue 05/15/24
lidocaine 4 % topical patch 1 patch topical DAILY left shoulder 05/15/24
midodrine 10 mg tablet 10 mg PO MOWEFR PRN BP < 90/60 05/15/24
midodrine 10 mg tablet 10 mg PO TID orthostatic 05/15/24
hypotension
nystatin 100,000 unit/gram topical 1 applic topical TID breats, 05/15/24
powder belly, groin
ondansetron HCl 8 mg tablet 8 mg PO Q6HPRN PRN nausea 05/15/24
potassium chloride 10 mEq 30 meq PO DAILY Electrolyte 05/15/24
tablet,extended release Repletion
pregabalin 75 mg capsule (Lyrica) 75 mg PO Q48H neuropathic pain 05/15/24
semaglutide 0.25 mg or 0.5 mg (2 0.25 mg SC FR weight management 05/15/24
mg/3 mL) subcutaneous pen injector
(Ozempic)
sennosides 8.6 mg tablet (senna) 17.2 mg PO DAILY Constipation 05/15/24
simethicone 125 mg capsule (Gas-X 125 mg PO Q6HPRN PRN gas pain 05/15/24
Extra Strength)
sorbitol 70 % solution 30 ml PO DAILYPRN PRN constipation 05/15/24
torsemide 20 mg tablet 20 mg PO DAILY Fluid 05/15/24
Retention/Swelling
tramadol 25 mg tablet 25 mg PO Q6HPRN PRN moderate pain 05/15/24
levothyroxine 112 mcg tablet 112 mcg PO DAILY 08/17/24
loperamide 2 mg tablet (Imodium 2 mg PO Q6H PRN diarrhea 08/17/24
A-D)
potassium chloride 10 mEq 10 meq PO HS 08/17/24
tablet,extended release (Klor-Con)
Review of Systems
-
History Source: Patient
Constitutional: Reports Weight Loss
Respiratory: Reports No Symptoms
Cardiac: Reports No Symptoms
Abdomen/GI: Reports Abdominal Pain, Vomiting, Diarrhea and Bloody Stools
Musculoskeletal: Reports Other (Patient cannot lift her legs. She can barely move them)
Skin: Reports Other (Excoriations all over her upper extremities from scratching)
Vital Signs
Temp Pulse Resp BP Pulse Ox
97.4 F 121 20 110/84 98
08/16/24 21:45 08/17/24 07:15 08/17/24 07:15 08/17/24 07:00 08/17/24 07:15
Physical Exam
Exam
General: Other (Chronically ill morbidly obese female)
HEENT: Anicteric
Respiratory: Clear
Cardiac: S1/S2 (Tachycardic)
GI: Soft (Obese, minimal discomfort in the left epigastric and left abdominal area)
Rectal: Brown (Brown mucoid stool on the pad)
Neuro: AO x 3
Psych: Calm
Results
WBC 10.5 10^3/uL (4.8-10.8) 08/17/24 06:01
Hgb 12.2 g/dL (12.0-16.0) 08/17/24 06:01
Hct 36.9 % (37.0-47.0) L 08/17/24 06:01
MCV 84.4 fL (81.0-99.0) 08/17/24 06:01
Plt Count 97 10^3/uL (130-400) L 08/17/24 06:01
Absolute Neuts (auto) 7.2 10^3/uL (1.4-6.5) H 08/16/24 21:56
PT 17.4 Sec (11.4-14.6) H 08/16/24 21:56
INR 1.40 08/16/24 21:56
APTT 32.9 Sec (23.4-35.0) 08/16/24 21:56
Sodium 135 mmol/L (135-145) 08/17/24 06:01
Potassium 3.4 mmol/L (3.5-5.1) L 08/17/24 06:01
Chloride 102 mmol/L (98-107) 08/17/24 06:01
Carbon Dioxide 25 mmol/L (22-30) 08/17/24 06:01
BUN 36 mg/dl (7-17) H 08/17/24 06:01
Creatinine 6.1 mg/dL (0.6-1.0) H* 08/17/24 06:01
Calcium 8.9 mg/dl (8.4-10.2) 08/17/24 06:01
Total Bilirubin 1.8 mg/dl (0.2-1.3) H 08/16/24 21:56
AST 27 U/L (14-36) 08/16/24 21:56
ALT 17 U/L (0-35) 08/16/24 21:56
Alkaline Phosphatase 193 U/L (38-126) H 08/16/24 21:56
Diagnostic Image Results:
No imaging done this admission
Prior GI Procedures: Never
Assessment / Plan
-
Patient is a 54-year-old female with history of morbid obesity with BMI 54, atrial fibrillation on Eliquis, recent hemodialysis catheter infection in May requiring significant antibiotics sent by [facility] with diarrhea and bright
red blood
# Diarrhea with the last 2 to 3 days having some bright red blood clot
-- Patient's blood pressure is stable currently 130/105, heart rate 131, however she is tachycardic. She has chronic atrial fibrillation on diltiazem -
-- Infectious versus microscopic versus medication induced versus inflammatory versus ischemic versus neoplasm
-- Stool studies
-- No imaging was done but patient needs to be confirmed for permanent dialysis prior to any IV contrast
-- She has no significant abdominal pain right now but if she does develop it would consider CAT scan
-- Eliquis on hold
-- Once daily PPI is fine
-- Would hold the Ozempic -patient appears malnourished and this can also cause diarrhea which is one of her only new medications that I can find
#�Malnourished -despite significant obesity patient is not taking an adequate oral nutrition
-- Would hold Ozempic for right now
# End-stage renal disease on HD -patient states this is permanent but before any IV contrast make sure this is the case
# Tachycardia -known atrial fibrillation on diltiazem
Per primary team
Patient is hemodynamically stable
Data Reviewed
-
Old Records: Reviewed
-
-
Thank you for consultation and allowing me to participate in the patient's care. Please call the dog control officer GI physician during the after hours with any questions or concerns.
[2024-08-17] MEDS: CYMBALTA DELAYED RELEASE 60 MG PO (08:28)
[2024-08-17] MEDS: ProAmatine 10 MG PO ×3 (08:28→17:04)
[2024-08-17] MEDS: LYRICA 75 MG PO (08:29)
[2024-08-17] MEDS: CARDIZEM CD 120 MG PO (08:29)
[2024-08-17] MEDS: DEMADEX 20 MG PO (08:30)
[2024-08-17] MEDS: PROTONIX IV 40 MG IV (08:31)
[2024-08-17] MEDS: NSS (PRESERVATIVE FREE) 10 ML IV (08:31)
[2024-08-17 10:35] LABS: Glycohemoglobin (HgbA1c) 4.6 % (4.0-5.6)
[2024-08-17 11:33] LABS: Glucose - Point of Care 105 mg/dl (70-99)
[2024-08-17] MEDS: CARDIZEM 125 IV (11:33)
[2024-08-17] MEDS: KCL 40 MEQ PO (11:33)
--- NOTE | 2024-08-17 11:40 | W.CON.NEPH ---
Consultation
-
Date/Time Consultation Requested: August 17, 2024 at 4 AM
Date/Time Consultation Performed: August 17, 2024 at 10 AM
Requesting Provider: Dr. Nair
Performing Provider: Dr. Rashid
Reason for Consultation: ESRD
Medical History
-
Chief Complaint: Catheter infection
History of Present Illness:
This is a 54-year-old female longstanding diabetes mellitus type 2 treated with insulin therapy. Significant renal history includes hypoxic episode at [facility] on the ventilator. Where she was started on dialysis [facility] in
[place] given subacute rehab with dialysis onsite. She was admitted at [facility] in May for catheter infection.
She presents today with diarrhea and bright red blood per rectum
Renal consult for hemodialysis
Currently in atrial fibrillation with RVR soft blood pressure
Past Medical History
ESRD, hypertension now hypotension, anemia, obesity, hypothyroidism, diabetes mellitus type 2
Denies surgery other than catheter placement
Social History
Tobacco: Non-Smoker
Alcohol: None
Family History
Uncle on dialysis
Family History: Diabetes
Allergies / Home Medications
Allergy/AdvReac Type Severity Reaction Status Date / Time
No Known Allergies Allergy Unverified 05/15/24 12:12
�Medication �Instructions �Recorded �Confirmed �Type
acetaminophen 325 mg tablet 650 mg PO Q6HPRN PRN mild pain 05/15/24 08/17/24 History
(Tylenol)
apixaban 5 mg tablet (Eliquis) 5 mg PO BID Blood Clot 05/15/24 08/17/24 History
Prevention/Tx
bisacodyl 5 mg tablet,delayed 10 mg PO DAILY Constipation 05/15/24 08/17/24 History
release (Dulcolax (bisacodyl))
cetirizine 10 mg tablet (Zyrtec) 10 mg PO HS Allergies 05/15/24 08/17/24 History
diltiazem HCl 120 mg capsule,24 120 mg PO DAILY Blood Pressure 05/15/24 08/17/24 History
hr,extended release
docusate sodium 100 mg capsule 100 mg PO BID Constipation 05/15/24 08/17/24 History
(Colace)
duloxetine 60 mg capsule,delayed 60 mg PO DAILY 05/15/24 08/17/24 History
release sprinkle depression/anxiety/pain
famotidine 20 mg tablet (Pepcid) 20 mg PO HS Gastrointestinal Issue 05/15/24 08/17/24 History
lidocaine 4 % topical patch 1 patch topical DAILY left shoulder 05/15/24 08/17/24 History
midodrine 10 mg tablet 10 mg PO MOWEFR PRN BP < 90/60 05/15/24 08/17/24 History
midodrine 10 mg tablet 10 mg PO TID orthostatic 05/15/24 08/17/24 History
hypotension
nystatin 100,000 unit/gram topical 1 applic topical TID breats, 05/15/24 08/17/24 History
powder belly, groin
ondansetron HCl 8 mg tablet 8 mg PO Q6HPRN PRN nausea 05/15/24 08/17/24 History
potassium chloride 10 mEq 30 meq PO DAILY Electrolyte 05/15/24 08/17/24 History
tablet,extended release Repletion
pregabalin 75 mg capsule (Lyrica) 75 mg PO Q48H neuropathic pain 05/15/24 08/17/24 History
semaglutide 0.25 mg or 0.5 mg (2 0.25 mg SC FR weight management 05/15/24 08/17/24 History
mg/3 mL) subcutaneous pen injector
(Ozempic)
sennosides 8.6 mg tablet (senna) 17.2 mg PO DAILY Constipation 05/15/24 08/17/24 History
simethicone 125 mg capsule (Gas-X 125 mg PO Q6HPRN PRN gas pain 05/15/24 08/17/24 History
Extra Strength)
sorbitol 70 % solution 30 ml PO DAILYPRN PRN constipation 05/15/24 08/17/24 History
torsemide 20 mg tablet 20 mg PO DAILY Fluid 05/15/24 08/17/24 History
Retention/Swelling
tramadol 25 mg tablet 25 mg PO Q6HPRN PRN moderate pain 05/15/24 08/17/24 History
levothyroxine 112 mcg tablet 112 mcg PO DAILY 08/17/24 08/17/24 History
loperamide 2 mg tablet (Imodium 2 mg PO Q6H PRN diarrhea 08/17/24 08/17/24 History
A-D)
potassium chloride 10 mEq 10 meq PO HS 08/17/24 08/17/24 History
tablet,extended release (Klor-Con)
Review of Systems
-
Loose stools no chest pain or shortness of breath lethargic
All other systems: Negative unless noted
Physical Exam
Vital Signs
Vital Signs
Temp Pulse Resp BP Pulse Ox
97.4 F 130 16 107/80 98
08/16/24 21:45 08/17/24 11:32 08/17/24 08:30 08/17/24 11:32 08/17/24 08:30
Lab Results
WBC 10.5 10^3/uL (4.8-10.8) 08/17/24 06:01
RBC 4.37 10^6/uL (4.20-5.40) 08/17/24 06:01
Hgb 12.2 g/dL (12.0-16.0) 08/17/24 06:01
Hct 36.9 % (37.0-47.0) L 08/17/24 06:01
Plt Count 97 10^3/uL (130-400) L 08/17/24 06:01
Sodium 135 mmol/L (135-145) 08/17/24 06:01
Potassium 3.4 mmol/L (3.5-5.1) L 08/17/24 06:01
Chloride 102 mmol/L (98-107) 08/17/24 06:01
Carbon Dioxide 25 mmol/L (22-30) 08/17/24 06:01
BUN 36 mg/dl (7-17) H 08/17/24 06:01
Creatinine 6.1 mg/dL (0.6-1.0) H* 08/17/24 06:01
eGFR 7.55 08/17/24 06:01
Glucose 88 mg/dl (70-99) 08/17/24 06:01
Calcium 8.9 mg/dl (8.4-10.2) 08/17/24 06:01
Phosphorus 4.6 mg/dl (2.5-4.5) H 08/17/24 06:01
Albumin 2.6 g/dl (3.5-5.0) L 08/16/24 21:56
Physical Exam
General no acute distress
HEENT no cephalic atraumatic extraocular muscle intact no scleral icterus no JVD neck supple
lungs clear to auscultation bilateral
heart regular S1-S2 positive
abdomen soft nontender positive bowel sounds
extremities no edema pulses present bilateral
Neurologically nonfocal alert and oriented x 3
Skin no lesions no abrasions no petechiae
Psych normal affect no bizarre behavior
Data Reviewed
-
Radiology: Image Personally Visualized and interpreted
Labs: Labs Reviewed by me, Discussed with Physician, Discussed with Nurse and Discussed with Patient
Assessment/Plan
-
54y F with PMH significant for A-Fib, ESRD on HD and morbid obesity who presents to ED from local [place] for evaluation of bloody stools.
Assessment
ESRD Monday last dialysis Monday/
A-fib
GI bleed+
Hypotension
Diabetes mellitus type 2
Hypothyroidism
MOrbid Obesity
Previous catheter exit site infection
Plan
IV fluid bolus for A-fib with RVR as discussed with primary
Will initiate dialysis today for electrolyte and will be conservative with ultrafiltration
GI consult note
No indication for Epogen or blood transfusion
Holding Eliquis
--- NOTE | 2024-08-17 13:24 | CM ---
CM spoke with nursing at [facility]
Pt is a LTC resident, notes she is AxO 3x
She is indep with bed mobility and able to feed self
She is bedbound/non ambulatory bora lift for transfers
Unable to self propel [facility] W/C, she is in a [facility] bed
Pt receives HD MWF at [facility]
PCP- Madison Martinez
Rx- [facility]
Discharge Disposition- return to [facility] LT, likely [facility]
--- NOTE | 2024-08-17 13:42 | W.PN.HOSP.TC ---
Addendum entered and electronically signed by Darron Nova MD 08/17/24 17:03:
Seen and examined by me independently in collaboration with the biomedical scientist.
Lab data and imaging data reviewed.
Addendum as below :
Admitted by Dr. Nair this morning for painless rectal bleeding. H&H has been stable so far. Bleeding associated with Eliquis use. Hold Eliquis. Await GI input.
Hemodynamically with a low blood pressure readings but responded to 5 mL of fluid. She has chronic hypotension requiring midodrine. She has bilateral crackles and prominent bronchovascular markings got a chest x-ray. Hold further fluid boluses.
Hemodialysis per nephrology.
A-fib with poor rate control-normally on Cardizem at home. Suspect related to acute medical issues. Will try IV Cardizem drip if she can tolerate otherwise will consult cardiology for rate control. Patient without chest pain.
Discussed with nephrology today.
Original Note:
Today's Communication/Plan
-
Continue Diltiazem drip
Await stool studies
Monitor for further rectal bleed
Follow H&H
Assessment / Plan
Assessment / Plan
A/P: Patient is a 54y F with PMH significant for A-Fib on Eliquis, ESRD on HD and morbid obesity who presents to ED for evaluation of BRBPR / diarrhea.
BRBPR x few days:
Diarrhea x several weeks:
- Painless rectal bleeding. No history of colonoscopy, rectal bleeding or hemorrhoids. Reports poor appetite
- Has ongoing afib + RVR, hypotensive with chronic hypotension hx. Normal Hgb. Does not appear hemodynamically unstable from GIB.
- Holding Eliquis for GIB
- Holding Ozempic (patient reports being on it for about 2+ months) as potential cause of diarrhea
- Appreciate GI recs
- Await stool studies
- Monitor for any further bleeding.
Chronic Hypotension
- Patient maintained on midodrine daily + extra on HD days. Continue
- BP initially in the ED was intermittent hypotension since arrival, currently stable.
- Follow BP closely
- Appreciate nephro input for HD and fluid management given BP.
Paroxysmal Atrial Fibrillation
Currently in afib +RVR 120-140 range.
Likely secondary to reduced PO intake, diarrhea. Rectal bleeding possibly contributory
- Hold Cardizem PO, start Cardizem drip. Monitor BP. Cards consult if unable to tolerate cardizem drip
- Holding Eliquis acutely given GI bleeding as noted above.
ESRD on HD
- Stable. Last HD session on Monday. Missed Monday HD due to feeling unwell.
- Appreciate nephro input for HD and fluid management given hypotension
- Continue current diuretics
- Follow labs / lytes and adjust as needed.
- Follow I/Os, daily weights, etc.
Hypokalemia:
- Replete
- continue daily KCl 20mEq
Chronic HFpEF
Chronic Hypoxemic Respiratory Failure
- Stable. No evidence of gross volume overload on exam.
- Continue current torsemide and follow weights, I/Os.
- Continue usual O2 supplementation (2L NC).
- Follow for any clinical changes.
DM-II
- No longer on any insulin per IN JUN.
- Hold Ozempic given acute GI complaints.
- Low res SSI as needed.
- Pending A1c
Hypothyroidism
- Continue levothyroxine
Morbid Obesity due to excess calories
- Affects all aspects of care.
- Note that patient has experienced marked weight loss since her initial hospitalization - states that she previously weighed > 500 lbs.
- Continue healthy diet and aim to improve activity
DVT Prophylaxis: SCDs while anticoagulation on hold.
Code Status: DNR
Anticipated Discharge: Within 24 hours
Subjective/Interval History
-
Date of Service: August 17, 2024
No acute overnight events
Objective Data
-
Labs:
Laboratory Results
08/17/24 08/17/24
03:51 06:01
WBC 10.5
Hgb 12.3 12.2
Hct 37.7 36.9 L
Plt Count 97 L
Sodium 135
Potassium 3.4 L
Chloride 102
Carbon Dioxide 25
BUN 36 H
Creatinine 6.1 H*
Glucose 88
Calcium 8.9
Vital Signs:
Vital Signs
Temp Pulse Resp BP Pulse Ox
97.4 F 117 16 98/75 99
08/16/24 21:45 08/17/24 13:15 08/17/24 13:15 08/17/24 13:15 08/17/24 13:15
Review of Systems
-
History Source: Patient
Respiratory: Denies Cough or Trouble Breathing
Cardiac: Denies Chest Pain, Palpitations or Syncope
Abdomen/GI: Reports Abdominal Pain (generalized), Diarrhea, Bloody Stools and Anorexia; Denies Nausea or Vomiting
Genitourinary: Denies Dysuria or Difficulty Voiding
Neuro: Denies Dizzy or Lightheadedness
Physical Exam
-
General: No Apparent Distress, Morbidly Obese and Other (appears tired)
HEENT: Normocephalic and Atraumatic
Respiratory: Clear to Auscultation (anteriorly), Non Labored Respirations and Other (2L NC); Negative Wheezes, Rales, Rhonchi or Crackles
Cardiac: S1/S2, Irregular Rhythm and Tachycardic; Negative Murmur, Rub or Calf Tenderness
GI: Soft, Nondistended, Normal Bowel Sounds and Tender (mild tenderness to epigastrium)
Musculoskeletal: No Clubbing, No Cyanosis and No Edema
Skin: Warm and Dry
Neuro: Awake, Alert and Oriented
Psych: Calm
[2024-08-17] MEDS: MANNITOL 25% 12.5 GRAMS IV ×2 (15:04→15:05)
[2024-08-17 17:01] LABS: Glucose - Point of Care 76 mg/dl (70-99)
--- NOTE | 2024-08-17 18:00 | PTCARENOTE ---
Received patient by stretcher from ED. Nohemy gtt at 5ml/hr. HR 110, afib. BP soft but stable. Weaned to RA, sats 93%. Patient c/o mouth pain, extensive mouth care with moisturizer performed with some relief. Noted cracking across front of tongue.
Patient with poor appetite, patient blames part of that on mouth pain. No thrush noted, only dryness with cracking. Patient making needs known. Will continue to closely monitor.
[2024-08-17] MEDS: PEPCID 20 MG PO (20:49)
[2024-08-17] MEDS: DESENEX/MITRAZOL/ZEASORB 1 APPLIC TOPICAL (20:49)
[2024-08-17] MEDS: KCL PO (20:51)
[2024-08-17 21:47] LABS: Glucose - Point of Care 62 mg/dl (70-99)
[2024-08-17 22:39] LABS: Glucose - Point of Care 88 mg/dl (70-99)
[2024-08-18] VITALS (14 sets, daily range): BP systolic 89–108; BP diastolic 68–85; BMI 52.5
[2024-08-18 00:17] LABS: Glucose - Point of Care 117 mg/dl (70-99)
--- NOTE | 2024-08-18 00:53 | PTCARENOTE ---
Addendum entered by Sherrell Vázquez 08/18/24 02:15:
Pt unable to take PO potassium d/t unable to crush. Pt takes medications crushed in applesauce.
Original Note:
Cardizem gtt remains in place, see worklist for titrations. Pt with blood sugar 62, asymptomatic and improved with 4 oz juice. Pt incontinent of brown mucoid stool. Hygiene care performed. 2L O2 placed for desat to 88% on RA. Call estrada within reach,
pt demonstrates appropriate use. Care ongoing.
[2024-08-18] MEDS: CARDIZEM 125 IV (01:49)
[2024-08-18 03:54] LABS: Glucose - Point of Care 77 mg/dl (70-99)
[2024-08-18] MEDS: SYNTHROID 112 MCG PO (04:35)
[2024-08-18 05:36] LABS: Hematocrit 36.8 % (37.0-47.0); Hemoglobin 12.4 g/dL (12.0-16.0); Mean Corp Hgb Conc. 33.7 g/dL (33.0-37.0); Mean Corpuscular Hgb 28.4 pg (27.0-31.0); Mean Corpuscular Volume 84.4 fL (81.0-99.0); Platelet Count 92 10^3/uL (130-400); Red Blood Cell Count 4.36 10^6/uL (4.20-5.40); Red Cell Dist. Width 15.9 % (11.5-14.5); White Blood Cell Count 8.2 10^3/uL (4.8-10.8)
[2024-08-18 05:44] LABS: Blood Urea Nitrogen 19 mg/dl (7-17); Calcium 8.2 mg/dl (8.4-10.2); Carbon Dioxide 24 mmol/L (22-30); Chloride 101 mmol/L (98-107); Estimated Creatinine Clearance 26 ml/min; Glucose 80 mg/dl (70-99); Potassium 3.4 mmol/L (3.5-5.1); Sodium 134 mmol/L (135-145)
--- NOTE | 2024-08-18 09:22 | W.PN.GI.CBS2 ---
Today's Communication / Plan
-
-- Continue diet, await stool studies
Assessment / Plan
-
Patient is a 54-year-old female with history of morbid obesity with BMI 54, atrial fibrillation on Eliquis, recent hemodialysis catheter infection in May requiring significant antibiotics sent by [facility] with diarrhea and bright
red blood
# Diarrhea with the last 2 to 3 days having some bright red blood clot
--Bleeding has stopped, likely local like hemorrhoidal
-- Patient's blood pressure is stable currently
-- Infectious versus microscopic versus medication induced versus inflammatory versus ischemic versus neoplasm
-- Stool studies -C. difficile pending, negative leukocytes, norovirus pending, culture pending
-- No imaging was done but patient needs to be confirmed for permanent dialysis prior to any IV contrast
-- She has no significant abdominal pain right now but if she does develop it would consider CAT scan
-- Eliquis on hold
-- Once daily PPI is fine
-- Would hold the Ozempic -patient appears malnourished and this can also cause diarrhea which is one of her only new medications that I can find
-- Consider flexible sigmoidoscopy versus colonoscopy. Patient's body habitus makes this very difficult but we will do our best
#�Malnourished -despite significant obesity patient is not taking an adequate oral nutrition
-- Would hold Ozempic which may also be causing her diarrhea
# End-stage renal disease on HD -patient states this is permanent but before any IV contrast make sure this is the case
# Tachycardia -known atrial fibrillation on diltiazem, now on IV diltiazem
Per primary team
Patient is hemodynamically stable
Subjective
Subjective
Date of Service: August 18, 2024
Patient requiring a diltiazem drip for rapid A-fib, no further bleeding but having small mucoid brown stools. Minimal appetite
Objective
Data Reviewed
Laboratory Data:
Laboratory Results
08/18/24 05:06
08/18/24 05:06
Laboratory Results
PT 17.4 Sec (11.4-14.6) H 08/16/24 21:56
INR 1.40 08/16/24 21:56
APTT 32.9 Sec (23.4-35.0) 08/16/24 21:56
Phosphorus 4.6 mg/dl (2.5-4.5) H 08/17/24 06:01
Magnesium 1.9 mg/dl (1.6-2.3) 08/17/24 06:01
Total Bilirubin 1.8 mg/dl (0.2-1.3) H 08/16/24 21:56
AST 27 U/L (14-36) 08/16/24 21:56
ALT 17 U/L (0-35) 08/16/24 21:56
Alkaline Phosphatase 193 U/L (38-126) H 08/16/24 21:56
Vital Signs and I&O:
Vital Signs
Temp Pulse Resp BP Pulse Ox
97.8 F 99 17 102/68 97
08/18/24 07:00 08/18/24 06:00 08/18/24 06:00 08/18/24 06:00 08/18/24 06:00
I&O
08/17/24 08/18/24 08/19/24
06:59 06:59 06:59
Intake Total 240 / 240
Balance 240 / 240
Physical Exam
Physical Exam
HEENT: Anicteric
GI: Soft, Non Distended and Non Tender
Extremities: Other (Obese, unable to lift her legs)
--- NOTE | 2024-08-18 09:42 | W.PN.UPDATE ---
Update Note
Progress Note Update
Seen and examined by me independently in collaboration with the clinical medical transcriptionist.
Lab data and imaging data reviewed.
Addendum as below :
Patient today without nausea or vomiting. Still not much appetite. Denies any abdominal pain. Had 1 small loose stool today. No noted rectal bleeding or clots. Looks nontoxic. No distress. Abdomen obese soft some epigastric area discomfort
but no rebound guarding rigidity. H&H stable so far. Patient presented with many days of diarrhea with an episode of bright red blood per rectum with clots. Unclear etiology of diarrhea ;with Ozempic recently initiated , rule out the side effect
from it-on hold now. Stool cultures pending. Suspect the self-limiting rectal bleeding may be hemorrhoidal. Appreciate GI input.
If continued abdominal pain discomfort consider CT abdomen pelvis. Endoscopic eval per GI.
H-oef-[id number] so far-A-fib rate controlled. Off of Cardizem drip. Resume her regular p.o. Cardizem. Continue to follow on telemetry. Hold Eliquis till cleared by GI.
End-stage renal disease on hemodialysis-continue with dialysis support per renal.
Chronic respiratory insufficiency-stable on oxygen via nasal cannula
Transfer to telemetry if A-fib remains rate controlled.
[2024-08-18] MEDS: DEMADEX 20 MG PO (09:59)
[2024-08-18] MEDS: CYMBALTA DELAYED RELEASE 60 MG PO (09:59)
[2024-08-18] MEDS: DESENEX/MITRAZOL/ZEASORB 1 APPLIC TOPICAL ×2 (10:04→21:16)
[2024-08-18] MEDS: NSS (PRESERVATIVE FREE) 10 ML IV (10:05)
[2024-08-18] MEDS: ProAmatine 10 MG PO ×3 (10:05→17:35)
[2024-08-18] MEDS: PROTONIX IV 40 MG IV (10:05)
[2024-08-18 10:31] LABS: Glucose - Point of Care 69 mg/dl (70-99)
[2024-08-18] MEDS: CARDIZEM CD 120 MG PO (10:33)
--- NOTE | 2024-08-18 10:34 | W.PN.NEPH.PH ---
Today's Communication / Plan
-
Dialysis Monday
Assessment/Plan
-
54y F with PMH significant for A-Fib, ESRD on HD and morbid obesity who presents to ED from local [place] for evaluation of bloody stools.
Assessment
ESRD Monday last dialysis Monday/[facility]
A-fib
GI bleed+/diarrhea= rule out infectious cause, holding Ozempic
Hypotension
Diabetes mellitus type 2
Hypothyroidism
MOrbid Obesity
Previous catheter exit site infection
Plan
GI consult note
No indication for Epogen or blood transfusion
Holding Eliquis= trending hemoglobin/Epogen as indicated for hemoglobin less than 10
Dialysis Monday
-
-
Date of Service: August 18, 2024
CC / HPI / ROS
-
Chief Complaint:
Presents with diarrhea and bloody stools end-stage renal disease
History of Present Illness:
ESRD with bright red blood per rectum Monday
Review of Systems:
No chest pain or shortness of breath
Labs
-
Labs:
WBC 8.2 10^3/uL (4.8-10.8) 08/18/24 05:06
RBC 4.36 10^6/uL (4.20-5.40) 08/18/24 05:06
Hgb 12.4 g/dL (12.0-16.0) 08/18/24 05:06
Hct 36.8 % (37.0-47.0) L 08/18/24 05:06
Plt Count 92 10^3/uL (130-400) L 08/18/24 05:06
Sodium 134 mmol/L (135-145) L 08/18/24 05:06
Potassium 3.4 mmol/L (3.5-5.1) L 08/18/24 05:06
Chloride 101 mmol/L (98-107) 08/18/24 05:06
Carbon Dioxide 24 mmol/L (22-30) 08/18/24 05:06
BUN 19 mg/dl (7-17) H 08/18/24 05:06
Creatinine 3.5 mg/dL (0.6-1.0) H 08/18/24 05:06
eGFR 14.70 08/18/24 05:06
Glucose 80 mg/dl (70-99) 08/18/24 05:06
Calcium 8.2 mg/dl (8.4-10.2) L 08/18/24 05:06
Phosphorus 4.6 mg/dl (2.5-4.5) H 08/17/24 06:01
Albumin 2.6 g/dl (3.5-5.0) L 08/16/24 21:56
Physical Exam
-
Vital Signs:
Vital Signs
Temp Pulse Resp BP Pulse Ox
97.8 F 101 17 106/79 97
08/18/24 07:00 08/18/24 10:33 08/18/24 06:00 08/18/24 10:33 08/18/24 06:00
Cardiovascular:: Regular rate and rhythm
Respiratory:: Bilateral: CTA (anteriorly)
Lung Excursion:: Normal
Abdomen:: Nontender and Soft
Extremity Edema:: +1: Bilateral: (chronic)
Gay Catheter: No
[2024-08-18 10:54] LABS: Glucose - Point of Care 74 mg/dl (70-99)
--- NOTE | 2024-08-18 11:27 | W.PN.HOSP.TC ---
Today's Communication/Plan
-
Switch cadizem drip to PO
Monitor BP and tele
Encourage PO intake
Await stool cultures
Assessment / Plan
Assessment / Plan
A/P: Patient is a 54y F with PMH significant for A-Fib on Eliquis, ESRD on HD and morbid obesity who presents to ED for evaluation of BRBPR / diarrhea.
BRBPR x few days:
Diarrhea x several weeks:
Painless rectal bleeding. No history of colonoscopy, rectal bleeding or hemorrhoids. Reports poor appetite
- currently ongoing diarrhea, non-bloody. No nausea or vomiting but appetite remains poor. Infectious vs inflammatory vs ozempic
- Has ongoing afib + RVR, hypotensive with chronic hypotension hx. Normal Hgb. Does not appear hemodynamically unstable from GIB.
- Holding Eliquis for GIB, holding Ozempic for ongoing GI symptoms
- Appreciate GI recs
- Cdiff and stool leuks negative. Stool cx and norovirus pending
- Monitor for any further bleeding.
Chronic Hypotension
- Currently stable
- Patient maintained on midodrine daily + extra on HD days. Continue
- monitor BP
Paroxysmal Atrial Fibrillation:
Afib +RVR on arrival. Likely secondary to reduced PO intake, diarrhea. Rectal bleeding possibly contributory
Currently in afib with controlled rate with cardizem drip. Switch to home dose PO Cardizem
- Holding Eliquis acutely given GI bleeding as noted above.
ESRD on HD
- s/p HD 08/17
- Appreciate nephro input for HD
- Continue current diuretics
- Follow labs / lytes and adjust as needed.
- Follow I/Os, daily weights, etc.
Hypokalemia:
- Replete
- continue daily KCl 20mEq
Chronic HFpEF
Chronic Hypoxemic Respiratory Failure
- s/p HD 08/17
- Continue current torsemide and follow weights, I/Os.
- Continue usual O2 supplementation (2L NC).
- Follow for any clinical changes.
DM-II
- No longer on any insulin per Jun.
- Hold Ozempic given acute GI complaints.
- Low res SSI as needed.
- A1c 4.6
Hypothyroidism
- Continue levothyroxine
Morbid Obesity due to excess calories
- Affects all aspects of care.
- Note that patient has experienced marked weight loss since her initial hospitalization - states that she previously weighed > 500 lbs.
- Continue healthy diet and aim to improve activity
DVT Prophylaxis: SCDs while anticoagulation on hold.
Code Status: DNR
Anticipated Discharge: 24 - 48 hours
Subjective/Interval History
-
Date of Service: August 18, 2024
Poor appetite. No overnight events
Objective Data
-
Labs:
Laboratory Results
08/18/24
05:06
WBC 8.2
Hgb 12.4
Hct 36.8 L
Plt Count 92 L
Sodium 134 L
Potassium 3.4 L
Chloride 101
Carbon Dioxide 24
BUN 19 H
Creatinine 3.5 H
Glucose 80
Calcium 8.2 L
Vital Signs:
Vital Signs
Temp Pulse Resp BP Pulse Ox
97.8 F 101 18 106/79 94
08/18/24 07:00 08/18/24 10:33 08/18/24 10:32 08/18/24 10:33 08/18/24 10:32
I&O
08/17/24 08/18/24 08/19/24
06:59 06:59 06:59
Intake Total 240 / 240
Balance 240 / 240
Review of Systems
-
History Source: Patient
Respiratory: Denies Trouble Breathing
Cardiac: Denies Chest Pain or Palpitations
Abdomen/GI: Reports Diarrhea; Denies Abdominal Pain, Nausea or Vomiting
Genitourinary: Denies Dysuria or Difficulty Voiding
Physical Exam
-
General: Comfortable and Other (appears tired); Negative Respiratory Distress or Appears in Distress
HEENT: Normocephalic, Atraumatic and Moist Mucous Membranes
Respiratory: Clear to Auscultation and Non Labored Respirations; Negative Wheezes, Rales, Rhonchi or Crackles
Cardiac: S1/S2, Irregular Rhythm and Other (normal rate); Negative Murmur, Rub or Calf Tenderness
GI: Soft, Nondistended, Normal Bowel Sounds and Tender (mild LLQ tenderness)
Musculoskeletal: No Clubbing, No Cyanosis and No Edema
Skin: Warm and Dry
Neuro: Awake, Alert and Oriented
Psych: Calm
[2024-08-18 12:01] LABS: Glucose - Point of Care 72 mg/dl (70-99)
--- NOTE | 2024-08-18 12:03 | PTCARENOTE ---
Pt drowsy this morning and not wanting to wake up for medications or to eat breakfast. Patient's blood sugar 69 in the late morning, see hypoglycemic flowsheet. Patient encouraged to order a meal, which she did. Lunch time blood sugar 72. Patient
attempted to wean off of O2 but SPO2 dropping into upper 80s. 2L O2 placed back on the patient. No BM yet this morning, awaiting a sample to send for Norovirus per order. Assessment, care and VS as charted.
[2024-08-18 14:54] LABS: Glucose - Point of Care 73 mg/dl (70-99)
[2024-08-18] MEDS: KCL ELIXIR 40 MEQ PO (17:35)
[2024-08-18 17:45] LABS: Glucose - Point of Care 70 mg/dl (70-99)
[2024-08-18 19:38] LABS: Glucose - Point of Care 129 mg/dl (70-99)
[2024-08-18 21:16] LABS: Glucose - Point of Care 485 mg/dl (70-99)
[2024-08-18] MEDS: PEPCID 20 MG PO (21:17)
[2024-08-18] MEDS: KCL PO (21:17)
--- NOTE | 2024-08-18 21:28 | PTCARENOTE ---
Pt's blood sugar reading RR HI per PCT, resulted 485 in Criptext at 21:05. High blood glucose seems unlikely for this pt d/t sugars in the 70s all day and lack of appetite/meals. Blood glucose rechecked by this RN with different glucometer and reads
69. This reading seems much more likely d/t pt's lack of appetite and blood glucose trend today. Hypoglycemia protocol followed, this RN will recheck blood glucose per hypoglycemia protocol.
[2024-08-18 21:31] LABS: Glucose - Point of Care 69 mg/dl (70-99)
[2024-08-18 21:57] LABS: Glucose - Point of Care 84 mg/dl (70-99)
[2024-08-19] VITALS (27 sets, daily range): BP systolic 90–113; BP diastolic 60–94; BMI 52.9
[2024-08-19 03:26] LABS: Glucose - Point of Care 76 mg/dl (70-99)
[2024-08-19 04:51] LABS: Hematocrit 37.2 % (37.0-47.0); Hemoglobin 12.1 g/dL (12.0-16.0); Mean Corp Hgb Conc. 32.5 g/dL (33.0-37.0); Mean Corpuscular Hgb 27.9 pg (27.0-31.0); Mean Corpuscular Volume 85.9 fL (81.0-99.0); Mean Platelet Volume 10.6 fL (7.4-10.4); Platelet Count 92 10^3/uL (130-400); Red Blood Cell Count 4.33 10^6/uL (4.20-5.40); Red Cell Dist. Width 15.9 % (11.5-14.5); White Blood Cell Count 6.9 10^3/uL (4.8-10.8)
[2024-08-19 05:26] LABS: Blood Urea Nitrogen 24 mg/dl (7-17); Calcium 8.9 mg/dl (8.4-10.2); Carbon Dioxide 26 mmol/L (22-30); Chloride 100 mmol/L (98-107); Estimated Creatinine Clearance 21 ml/min; Glucose 68 mg/dl (70-99); Magnesium 1.8 mg/dl (1.6-2.3); Potassium 3.5 mmol/L (3.5-5.1); Sodium 132 mmol/L (135-145); eGFR 11.17
[2024-08-19] MEDS: SYNTHROID 112 MCG PO (07:19)
--- NOTE | 2024-08-19 07:36 | W.PN.HOSP.TC ---
Addendum entered and electronically signed by Parish Lyon MD 08/19/24 21:11:
Attending Addendum-
I saw and evaluated the patient. I reviewed the resident�s note and agree with findings and plan as documented in the resident�s note. Sub: no further blood in stools. Still loose. Denies fevers chills NV abd pain. Full 12 point ROS reviewed and
negative except as documented Exam: Vitals reviewed in chart GEN-NAD heart tachycardic irreg irreg lungs clear abd obese soft NT ND pos BS LE b/l trace pitting edema
Plan:
#Lower GI bleed
- likely hemorrhoidal
- resolved
- Diarrhea x several weeks
- Holding Eliquis and Ozempic
-Appreciate GI recs
-Cdiff stool leuks Stool cx and norovirus-neg
-for flex sig in am
#Chronic Hypotension
- Currently stable
- Patient maintained on midodrine daily + extra on HD days. Continue
- monitor BP
# Atrial Fibrillation with RVR
- Switched to home dose PO Cardizem yesterday, will increase to 180 for better control
-Holding Eliquis acutely given GI bleeding as noted above.
# ESRD on HD
- HD today 08/19 (M/W/)
- Appreciate nephro input for HD
- Continue current diuretics
- Follow labs / lytes and adjust as needed.
- Follow I/Os, daily weights
# Hypokalemia:
- Replete
- continue daily KCl 20mEq
#Chronic HFpEF
#Chronic Hypoxemic Respiratory Failure
- s/p HD 08/19
- Continue current torsemide and follow weights, I/Os.
- Continue usual O2 supplementation (2L NC).
- Follow for any clinical changes.
#DM-II
- No longer on any insulin per [facility] JUN.
- DC Ozempic
- Low res SSI as needed.
- A1c 4.6
# Hypothyroidism
- Continue levothyroxine
# Hyponatremia
- hypervolemic
- for UF today with HD
# Morbid Obesity due to excess calories
- Affects all aspects of care.
- Note that patient has experienced marked weight loss since her initial hospitalization - states that she previously weighed > 500 lbs.
- Continue healthy diet and aim to improve activity
# Depression - cont duloxetine
# PN- cont lyrica
DVT Prophylaxis: SCDs while anticoagulation on hold.
Code Status: DNR
[facility] s/p flex sig if able CM aware
Time spent coordinating care, review of plan of care with resident, personally reviewed records in EMR, med rec, consults, notes, labs, radiology, d/w nursing and GI � 52 mins
Original Note:
Today's Communication/Plan
-
Switch to oral PPIs
Hemodialysis due today
Follow-up stool cultures and norovirus testing
Encourage oral intake
Monitor blood sugar
Increase Diltiazem dose to 180mg daily
Assessment / Plan
Assessment / Plan
Impression
Patient is a 54y F with PMH of diabetes mellitus, morbid obesity, A-fib, and end-stage renal disease with hemodialysis every Monday and Monday. Started on Ozempic 2 months ago. Reason for admission diarrhea and loss of appetite for
several weeks, and bright red blood per rectum that was noticed by the nurse practitioner at [facility].
Assessment and plan
Lower GI bleed
Painless rectal bleeding
No previous history of any hemorrhoids, colonoscopy, or any other GI issues.
On Eliquis for A-fib, currently discontinued due to recent GI bleed
Hemoglobin stable-did not receive any blood products
Blood pressure stable
No blood in stools in the last 48 hours
C. difficile and stool leukocytes negative
Stool culture and norovirus pending
GI consult appreciated-considering flexible sigmoidoscopy/colonoscopy body habitus limitations-
Continue to monitor for any further bleed
Diarrhea
3 loose stools overnight, no blood, no nausea or vomiting
Patient still has no appetite
GI consult appreciated-infectious/inflammatory/Ozempic related
Follow norovirus and stool culture reports
Encouraged patient to eat
Paroxysmal atrial fibrillation
Currently on 120 mg Cardizem daily
Heart rate went up to 120 at 4 AM self resolved
Continue to monitor heart rate
Eliquis remains on hold
Chronic Hypotension
Blood pressure stable
On midodrine 10 mg 3 times daily, extra midodrine on hemodialysis day
Hemodialysis session due today
Other medical problems
ESRD on HD-last hemodialysis on 08/17, next hemodialysis session due today
Nephrology following
Follow input output, daily weights, renal function tests and electrolytes
Hypokalemia-responding well to elixir overnight, consider switching
GERD-consider oral PPI
Chronic HFpEF-continue torsemide 20 mg daily, remains on 2 L oxygen via nasal cannula
DM-II -blood sugars running low, continue to monitor, encourage oral intake
Hypothyroidism - Continue levothyroxine
Morbid Obesity due to excess calories - Affects all aspects of care.
DVT Prophylaxis: SCDs , Eliquis on hold due to GI issues
Code Status: DNR
Anticipated Discharge: 24 - 48 hours
Subjective/Interval History
-
Date of Service: August 19, 2024
Patient complains of tiredness, loss of appetite and 3 episodes of loose stools overnight
No blood in stools
Blood sugars running low
Objective Data
-
Labs:
Laboratory Results
08/19/24
04:03
WBC 6.9
Hgb 12.1
Hct 37.2
Plt Count 92 L
Sodium 132 L
Potassium 3.5
Chloride 100
Carbon Dioxide 26
BUN 24 H
Creatinine 4.4 H*
Glucose 68 L
Calcium 8.9
Vital Signs:
Vital Signs
Temp Pulse Resp BP Pulse Ox
97.5 F 101 17 109/81 99
08/19/24 03:00 08/19/24 06:00 08/19/24 06:00 08/19/24 06:00 08/19/24 06:00
I&O
08/18/24 08/19/24 08/20/24
06:59 06:59 06:59
Intake Total 240 / 240 360 / 360
Balance 240 / 240 360 / 360
Review of Systems
-
All other systems: Reviewed and negative
Physical Exam
-
General: Well Developed, Well Nourished, Morbidly Obese and Other (On 2 L of oxygen via nasal cannula)
HEENT: Normocephalic, Atraumatic, Moist Mucous Membranes and [place] Conjunctivae
Respiratory: Clear to Auscultation and Other (Left internal jugular hemodialysis catheter)
Cardiac: Regular Rhythm, S1/S2 and Tachycardic
GI: Soft, Nontender and Normal Bowel Sounds
Musculoskeletal: No Clubbing, No Cyanosis and No Edema
Skin: Warm and Decubitus Ulcers (Present on right buttock)
Neuro: Awake, Oriented and No Motor Deficits
Psych: Calm and Intact Judgement/Insight
[2024-08-19 07:37] LABS: Glucose - Point of Care 71 mg/dl (70-99)
--- NOTE | 2024-08-19 09:23 | W.PN.GI.CBS2 ---
Today's Communication / Plan
-
-- Clear liquids, flexible sigmoidoscopy tomorrow, discussed with primary team need to improve heart rates prior to procedure, stools pending
Assessment / Plan
-
Patient is a 54-year-old female with history of morbid obesity with BMI 54, atrial fibrillation on Eliquis, recent hemodialysis catheter infection in May requiring significant antibiotics sent by [facility] with diarrhea and bright
red blood
# Diarrhea with prior to admission 2 to 3 days having some bright red blood clot
--Bleeding has stopped, likely local like hemorrhoidal
-- Patient's blood pressure is stable currently, but heart rates are still in the 130s, no longer on diltiazem drip
-- Infectious versus microscopic versus medication induced versus inflammatory versus ischemic versus neoplasm
-- Stool studies -C. difficile negative, negative leukocytes, norovirus pending, culture pending
-- No imaging was done but patient needs to be confirmed for permanent dialysis prior to any IV contrast
-- She has no significant abdominal pain right now but if she does develop it would consider CAT scan
-- Eliquis on hold
-- Once daily PPI is fine
-- Would hold the Ozempic indefinitely-patient appears malnourished and this can also cause diarrhea which is one of her only new medications that I can find
-- flexible sigmoidoscopy for tomorrow with 2 enemas prior and will go as far up as possible. Patient's body habitus makes this very difficult but we will do our best clear liquids today
#�Malnourished -despite significant obesity patient is not taking an adequate oral nutrition
-- Would hold Ozempic which may also be causing her diarrhea
# End-stage renal disease on HD -patient states this is permanent but before any IV contrast make sure this is the case
# Tachycardia -known atrial fibrillation on diltiazem, now on IV diltiazem
Per primary team
Patient is hemodynamically stable
-- Need to get her heart rates under better control prior to procedure
Subjective
Subjective
Date of Service: August 19, 2024
No further bleeding. Continues to have multiple mucoid brown stools. No appetite
Objective
Data Reviewed
Laboratory Data:
Laboratory Results
08/19/24 04:03
08/19/24 04:03
Laboratory Results
PT 17.4 Sec (11.4-14.6) H 08/16/24 21:56
INR 1.40 08/16/24 21:56
APTT 32.9 Sec (23.4-35.0) 08/16/24 21:56
Phosphorus 4.6 mg/dl (2.5-4.5) H 08/17/24 06:01
Magnesium 1.8 mg/dl (1.6-2.3) 08/19/24 04:03
Total Bilirubin 1.8 mg/dl (0.2-1.3) H 08/16/24 21:56
AST 27 U/L (14-36) 08/16/24 21:56
ALT 17 U/L (0-35) 08/16/24 21:56
Alkaline Phosphatase 193 U/L (38-126) H 08/16/24 21:56
Vital Signs and I&O:
Vital Signs
Temp Pulse Resp BP Pulse Ox
97.5 F 101 17 109/81 99
08/19/24 03:00 08/19/24 06:00 08/19/24 06:00 08/19/24 06:00 08/19/24 06:00
I&O
08/18/24 08/19/24 08/20/24
06:59 06:59 06:59
Intake Total 240 / 240 360 / 360
Balance 240 / 240 360 / 360
Physical Exam
Physical Exam
HEENT: Anicteric
GI: Soft (Significantly obese, some mild tenderness in the left upper quadrant)
[2024-08-19] MEDS: CYMBALTA DELAYED RELEASE 60 MG PO (09:34)
[2024-08-19] MEDS: PROTONIX IV 40 MG IV (09:34)
[2024-08-19] MEDS: LYRICA 75 MG PO (09:34)
[2024-08-19] MEDS: CARDIZEM CD 120 MG PO (09:34)
[2024-08-19] MEDS: NSS (PRESERVATIVE FREE) 10 ML IV (09:34)
[2024-08-19] MEDS: DEMADEX 20 MG PO (09:35)
[2024-08-19] MEDS: ProAmatine 10 MG PO ×3 (09:35→16:39)
[2024-08-19] MEDS: DESENEX/MITRAZOL/ZEASORB 1 APPLIC TOPICAL ×2 (09:35→21:01)
--- NOTE | 2024-08-19 09:56 | PTCARENOTE ---
PT received from juacnho RN, Ox3 and drowsy. Pt speaks in whispers, responds slowly, generalized weakness. AF in the 110's on tele, trace LE edema Breath sounds diminished, currently on 2L NC with a 95% sat, pt not complaining of any sob. Oliguric,
HD today at noon. Round, obese ABD. Some nausea while taking medications this morning. BG has remained on the low side of normal, encouraged pt to order breakfast, discussed with resident MD. Pt bedrest, skin assessed with WOC RN. Call estrada within
reach, pt makes needs known.
--- NOTE | 2024-08-19 10:29 | WOUNDNOTE ---
[facility] RN NOTE: Patient admitted with acute GI bleed. PMH: Patient is a 54y F with PMH significant for A-Fib, ESRD on HD and morbid obesity who presents [place] ED from local [place] for evaluation of bloody stools. Patient states that she has been having
loose stools / diarrhea for some time. Asked to see patient for stage 2 PI on coccyx and skin tear on buttock. With assist of nurse Anjel, patient turned to sides, patient assisted. No pressure injuries noted, tiny vertical opening on gluteal
cleft, suspect from incontinent associated skin damage. No open areas on buttocks, sacrum intact. Heels intact, has blanchable red zhanna on posterior L lower leg. Mild MASD in abdominal and groin skin folds, L lateral abdominal skin fold with linear
partial thickness opening, scant drainage. Fungal powder applied to skin folds and gluteal cleft. Dry gauze applied under L lateral abdominal skin fold. Sacral silicone foam applied to sacrum to protect, absorbent pad changed due to smear of
moisture mixed with stool. Pillow placed under calves and repositioned for comfort. Instructed nurse on skin plan and to make sure patient has a bariatric air mattress if transferred to floor. Can also be bariatric Accumax with air overly. Will sign
off unless needed.
[2024-08-19 11:50] LABS: Glucose - Point of Care 80 mg/dl (70-99)
--- NOTE | 2024-08-19 16:33 | W.PN.NEPH.HD ---
Assessment
-
Seen on HD. no complaints. VSS, access ok
Progress Note - Hemodialysis
-
Date of Service: August 19, 2024
Duration: 30 minutes and 3 hours
Potassium Bath: 3
Calcium Bath: 2.5
Opti-Dialyzer: 160
Ultrafiltration: Other (2kg)
Blood Flow: 400
Dialysate Flow: 600
Heparin: 0
EPO: 0
[2024-08-19] MEDS: FLEXBUMIN 25% FOR HEMODIALYSIS 12.5 GRAMS IV ×2 (16:50→18:30)
[2024-08-19] MEDS: MANNITOL 25% 12.5 GRAMS IV ×2 (16:55→18:35)
[2024-08-19 18:27] LABS: Hepatitis B Surface Antigen Negative (Negative)
[2024-08-19 18:57] LABS: Glucose - Point of Care 60 mg/dl (70-99)
--- NOTE | 2024-08-19 19:00 | PTCARENOTE ---
Received pt at 1600 and she is alert and visiting with who is at bedside. Pt began HD approx 1700. Pt tolerating process. Pt appetite is poor and continually refuses to eat, drink. CBS was hypoglycemic and treated per protocol and after 1-
4oz juice it was 70. Pt was still on HD, a bit drowsy but otherwise with no other symptoms
[2024-08-19 19:21] LABS: Glucose - Point of Care 70 mg/dl (70-99)
[2024-08-19] MEDS: CATHFLO/ACTIVASE 2 MG INTRACATH (19:51)
[2024-08-19] MEDS: KCL ELIXIR 20 MEQ PO (21:01)
[2024-08-19] MEDS: CITROMA 300 ML PO (21:01)
[2024-08-19] MEDS: KCL PO (21:02)
[2024-08-19] MEDS: CARDIZEM 30 MG PO (21:32)
[2024-08-19 21:36] LABS: Glucose - Point of Care 76 mg/dl (70-99)
--- NOTE | 2024-08-19 22:16 | PTCARENOTE ---
Pt transferred to [facility] and assigned to [facility]. Pt assessed, aaox3 able to make needs known. Agree with previous protective signal operator. Report called to receiving RN. Pt transferred in bed to Rm [id number].
--- NOTE | 2024-08-19 22:30 | PTCARENOTE ---
Pt brought to unit from IMU via bed. Pt pulled over by staff. A&Ox3. Maintained on 2L of O2. Patient encouraged to drink
--- NOTE | 2024-08-19 23:30 | PTCARENOTE ---
Pt brought to unit from IMU via bed. Pt pulled over by staff. A&Ox3. Maintained on 2L of O2. Patient encouraged to drink mag citrate at bedside to prep for flexible sigmoidoscopy in AM. Patient stated to this RN, 'I really do not think that I can
drink this. It tastes really bad.' Patient educated on importance of drinking it for procedure. Patient stated that she would try her best. Plan of care ongoing.
[2024-08-20 03:30] VITALS: BP 101/68
[2024-08-20] MEDS: SYNTHROID 112 MCG PO (06:13)
[2024-08-20 07:15] VITALS: BP 115/73
[2024-08-20] MEDS: DEMADEX 20 MG PO (08:06)
[2024-08-20] MEDS: CARDIZEM CD 180 MG PO (08:06)
[2024-08-20] MEDS: PROTONIX 40 MG PO (08:06)
[2024-08-20] MEDS: ProAmatine 10 MG PO ×3 (08:06→17:20)
[2024-08-20] MEDS: CYMBALTA DELAYED RELEASE 60 MG PO (08:06)
[2024-08-20] MEDS: DESENEX/MITRAZOL/ZEASORB 1 APPLIC TOPICAL ×2 (08:07→21:09)
[2024-08-20 08:15] LABS: Glucose - Point of Care 81 mg/dl (70-99)
--- NOTE | 2024-08-20 08:34 | W.PN.HOSP.TC ---
Addendum entered and electronically signed by Parish Lyon MD 08/20/24 23:56:
Attending Addendum-
I saw and evaluated the patient. I reviewed the resident�s note and agree with findings and plan as documented in the resident�s note. Sub: no further blood in stools. Still loose. Patient feels fatigued. HR still uncontrolled. Asymptomatic. Denies
fevers chills NV abd pain CP palps. Full 12 point ROS reviewed and negative except as documented Exam: Vitals reviewed in chart GEN-NAD heart tachycardic irreg irreg lungs clear abd obese soft NT ND pos BS LE b/l 2+ non pitting edema LT>Right left
mild redness no warmth
Plan:
#Lower GI bleed
- likely hemorrhoidal
- resolved
- Diarrhea x several weeks
- Holding Eliquis and Ozempic
-Appreciate GI recs
-Cdiff stool leuks Stool cx and norovirus-neg
-for flex sig in am
#Chronic Hypotension
- Currently stable
- Patient maintained on midodrine daily + extra on HD days. Continue
- monitor BP
# Atrial Fibrillation with RVR
- still uncontrolled despite increase in Cardizem
- c/s cards for eval- start IR dilt for better control
- check echo
-Holding Eliquis acutely given GI bleeding- will restart as soon as able
# ESRD on HD
- HD / (/W/)
- HD in am
- Continue current diuretics
- Follow labs / lytes and adjust as needed.
- Follow I/Os, daily weights
# LLE > Right Chronic Edema
- neg for DVT
# Hypokalemia
- Replete
- continue daily KCl 20mEq
#Chronic HFpEF
#Chronic Hypoxemic Respiratory Failure
- Continue current torsemide and follow weights, I/Os.
- Continue usual O2 supplementation (2L NC).
- likely JACKY will need eval as OP
#DM-II
- No longer on any insulin per [place] [facility].
- DC Ozempic
- Low res SSI as needed.
- A1c 4.6
# Hypothyroidism
- Continue levothyroxine
# Hyponatremia
- resolved
- for UF with HD
- follow BMP
# Morbid Obesity due to excess calories
- Affects all aspects of care.
- Note that patient has experienced marked weight loss since her initial hospitalization - states that she previously weighed > 500 lbs.
- Continue healthy diet and aim to improve activity
# Depression - cont duloxetine
# PN- cont lyrica
DVT Prophylaxis: SCDs while anticoagulation on hold.
Code Status: DNR
Dispo DC back to [facility] when medically stable
Time spent coordinating care, review of plan of care with resident, personally reviewed records in EMR, med rec, consults, notes, labs, radiology, d/w nursing and cards � 52 mins
Original Note:
Today's Communication/Plan
-
Bilateral venous Doppler ultrasound
Replete potassium
Diltiazem 60mg QID
Assessment / Plan
Assessment / Plan
Impression
Patient is a 54y F with PMH of diabetes mellitus, morbid obesity, A-fib, and end-stage renal disease with hemodialysis every Monday and Monday. Started on Ozempic 2 months ago most likely for weight loss. Reason for admission diarrhea
and loss of appetite for several weeks, and bright red blood per rectum that was noticed by the nurse practitioner at [facility].
Assessment and plan
Paroxysmal atrial fibrillation
Currently on 120 mg Cardizem daily
Heart rate went up to 120 at 4 AM self resolved
Cardiology recs appreciated-Diltiazem 60mg every 6 hrs
Continue to monitor heart rate
Eliquis remains on hold
Lower GI bleed
Painless rectal bleeding
No previous history of any hemorrhoids, colonoscopy, or any other GI issues.
On Eliquis for A-fib, currently discontinued due to recent GI bleed
Hemoglobin stable-did not receive any blood products
Blood pressure stable
No blood in stools in the last 48 hours
C. difficile and stool leukocytes negative
Stool culture and norovirus negative
GI consult appreciated-considering flexible sigmoidoscopy/colonoscopy body habitus limitations-
Continue to monitor for any further bleed
Diarrhea
3 loose stools overnight, no blood, no nausea or vomiting
Patient still has no appetite
GI consult appreciated-infectious/inflammatory/Ozempic related
Possible flexible sigmoidoscopy tommorow based on patient's condition
Redness and swelling of left lower leg secondary to DVT
Patient has history of A fib
Eliquis on hold for Bright red bleeding per rectum
On Diltiazem 180 mg-still tachycardic
Today,her left leg is warm,red and more swollen as compared to right
Urgent Doppler ultrasound
Patient is on SCD for DVT prophylaxis
Chronic Hypotension
Blood pressure stable
On midodrine 10 mg 3 times daily, extra midodrine on hemodialysis day
Hemodialysis session due today
Other medical problems
ESRD on HD-last hemodialysis on 08/17, next hemodialysis session due today
Nephrology following
Follow input output, daily weights, renal function tests and electrolytes
Hypokalemia-replete as needed
GERD-consider oral PPI
Chronic HFpEF-continue torsemide 20 mg daily, remains on 2 L oxygen via nasal cannula
DM-II -blood sugars running low, continue to monitor, encourage oral intake
Hypothyroidism - Continue levothyroxine
Morbid Obesity due to excess calories - Affects all aspects of care.
DVT Prophylaxis: SCDs , Eliquis on hold due to GI issues
Code Status: DNR
Anticipated Discharge: 24 - 48 hours
Subjective/Interval History
-
Date of Service: August 20, 2024
Patient has decrease in appetite, and feels very weak and tired
No other complaints
Objective Data
-
Labs:
Laboratory Results
08/20/24
08:31
WBC Pending
Hgb Pending
Hct Pending
Plt Count Pending
Sodium Pending
Potassium Pending
Chloride Pending
Carbon Dioxide Pending
BUN Pending
Creatinine Pending
Glucose Pending
Calcium Pending
Vital Signs:
Vital Signs
Temp Pulse Resp BP Pulse Ox
97.3 F 110 18 115/73 98
08/20/24 07:15 08/20/24 08:06 08/20/24 07:15 08/20/24 08:06 08/20/24 07:15
I&O
08/19/24 08/20/24 08/21/24
06:59 06:59 06:59
Intake Total 360 / 360 480 / 480
Output Total 500 / 500
Balance 360 / 360 -20 / -20
Review of Systems
-
All other systems: Reviewed and negative
Physical Exam
-
General: Well Developed, Well Nourished, Appears Chronically Ill and Other (Breathing on 1 L oxygen, has rectal tube in place)
HEENT: Normocephalic, Atraumatic, Anicteric and [place] Conjunctivae
Respiratory: Decreased Breath Sounds (Bilaterally at lung bases) and Other (No wheezes rhonchi or rales)
Cardiac: Irregular Rhythm (Irregularly irregular), Tachycardic and Other (Positional change exacerbates tachycardia)
GI: Soft, Nontender and Normal Bowel Sounds
Musculoskeletal: Edema, Left Lower Extrem and Other (Left leg appeared more red, swollen and warm as compared to right, posterior tibial and pedal pulses palpable)
Skin: Warm, Dry and Decubitus Ulcers (Present on right buttock)
Neuro: Awake and Oriented
Psych: Calm
[2024-08-20 09:57] LABS: Hematocrit 34.9 % (37.0-47.0); Hemoglobin 11.6 g/dL (12.0-16.0); Mean Corp Hgb Conc. 33.2 g/dL (33.0-37.0); Mean Corpuscular Volume 84.3 fL (81.0-99.0); Mean Platelet Volume 10.1 fL (7.4-10.4); Platelet Count 77 10^3/uL (130-400); Red Blood Cell Count 4.14 10^6/uL (4.20-5.40)
--- NOTE | 2024-08-20 10:15 | CON.CAR ---
Addendum entered and electronically signed by Brent Castorena MD 08/20/24 16:56:
I saw and examined the patient.
The COUNSELING CENTER MANAGER's note was reviewed and I agree with the note.
Comment:
54-year-old female with ESRD on HD, persistent atrial fibrillation, HFpEF, and diabetes who presents with bright red blood per rectum. Cardiology is consulted for atrial fibrillation with rapid ventricular response. On review of telemetry, her
heart rates have been in the 110s for the past 24 hours. She is on diltiazem 120 mg daily at home which was increased to 180 mg today. She is undergoing GI workup for her BRBPR with plan for colonoscopy tomorrow. Physical exam reveals chronically
ill-appearing woman with irregular rate and rhythm, no murmurs, chronic LE edema. Labs notable for hemoglobin 11.6, BMP reflects dialysis. Echocardiogram reveals grossly normal LV function and no significant valvular disease. We will cautiously
increase her diltiazem and start with 60 mg every 6 hours and uptitrate as needed. She requires midodrine on dialysis days so we will have to be mindful of her blood pressures with increasing diltiazem. Her goal heart rate is less than 110 bpm.
Concettaquis is currently on hold. Resume once safe from a GI perspective.
Original Note:
Consultation
Consultation Request
Date/Time Consultation Requested: 08/20/2024 10:00
Date/Time Consultation Performed: 08/20/2024 10:15
Requesting Provider: Dr. Shy Weathers ( Resident)
Performing Provider: SCHUYLER Mathis for Dr. Castorena
Reason for Consultation: Atrial fibrillation with RVR
Medical History
-
Chief Complaint: BRBPR
History of Present Illness:
Kayce Locke is a 54-year-old female with ESRD on HD, atrial fibrillation (type unknown, on apixaban), heart failure (presumed HFpEF), type 2 diabetes mellitus, anemia of chronic disease, and chronic hypotension who presented to the emergency
department 08/17/2024 with a chief complaint of bright red blood per rectum. She endorses chronically loose stools. She intermittently would have streaks of blood but then had a large bloody bowel movement prompting evaluation. She denied abdominal
pain. She has chronic nausea related to GLP-1. She was evaluated by nephrology for chronic hemodialysis and GI for her GI bleeding. Cardiology was consulted today for atrial fibrillation with rapid ventricular response. The plan is for a flex
sig tomorrow with GI. She has no chest pain, dizziness, nor palpitations.
Past Medical History
Past Medical History: Arrhythmias (Atrial fibrillation [type unknown, on apixaban]), CHF, GERD, Hypothyroidism, NIDDM, Renal Failure (ESRD on HD) and Valvular Disease (Anemia of chronic disease)
Past Surgical History: None
Social History
Tobacco: Non-Smoker (Never)
Alcohol: None
Drug: None
Personal:
Living: Correction
Family History
Family History: Reviewed & Not Pertinent
Allergies / Home Medications
Allergy/AdvReac Type Severity Reaction Status Date / Time
No Known Allergies Allergy Unverified 05/15/24 12:12
�Medication �Instructions �Recorded �Confirmed �Type
acetaminophen 325 mg tablet 650 mg PO Q6HPRN PRN mild pain 05/15/24 08/17/24 History
(Tylenol)
apixaban 5 mg tablet (Eliquis) 5 mg PO BID Blood Clot 05/15/24 08/17/24 History
Prevention/Tx
bisacodyl 5 mg tablet,delayed 10 mg PO DAILY Constipation 05/15/24 08/17/24 History
release (Dulcolax (bisacodyl))
cetirizine 10 mg tablet (Zyrtec) 10 mg PO HS Allergies 05/15/24 08/17/24 History
diltiazem HCl 120 mg capsule,24 120 mg PO DAILY Blood Pressure 05/15/24 08/17/24 History
hr,extended release
docusate sodium 100 mg capsule 100 mg PO BID Constipation 05/15/24 08/17/24 History
(Colace)
duloxetine 60 mg capsule,delayed 60 mg PO DAILY 05/15/24 08/17/24 History
release sprinkle depression/anxiety/pain
famotidine 20 mg tablet (Pepcid) 20 mg PO HS Gastrointestinal Issue 05/15/24 08/17/24 History
lidocaine 4 % topical patch 1 patch topical DAILY left shoulder 05/15/24 08/17/24 History
midodrine 10 mg tablet 10 mg PO MOWEFR PRN BP < 90/60 05/15/24 08/17/24 History
midodrine 10 mg tablet 10 mg PO TID orthostatic 05/15/24 08/17/24 History
hypotension
nystatin 100,000 unit/gram topical 1 applic topical TID breats, 05/15/24 08/17/24 History
powder belly, groin
ondansetron HCl 8 mg tablet 8 mg PO Q6HPRN PRN nausea 05/15/24 08/17/24 History
potassium chloride 10 mEq 30 meq PO DAILY Electrolyte 05/15/24 08/17/24 History
tablet,extended release Repletion
pregabalin 75 mg capsule (Lyrica) 75 mg PO Q48H neuropathic pain 05/15/24 08/17/24 History
semaglutide 0.25 mg or 0.5 mg (2 0.25 mg SC FR weight management 05/15/24 08/17/24 History
mg/3 mL) subcutaneous pen injector
(Ozempic)
sennosides 8.6 mg tablet (senna) 17.2 mg PO DAILY Constipation 05/15/24 08/17/24 History
simethicone 125 mg capsule (Gas-X 125 mg PO Q6HPRN PRN gas pain 05/15/24 08/17/24 History
Extra Strength)
sorbitol 70 % solution 30 ml PO DAILYPRN PRN constipation 05/15/24 08/17/24 History
torsemide 20 mg tablet 20 mg PO DAILY Fluid 05/15/24 08/17/24 History
Retention/Swelling
tramadol 25 mg tablet 25 mg PO Q6HPRN PRN moderate pain 05/15/24 08/17/24 History
levothyroxine 112 mcg tablet 112 mcg PO DAILY 08/17/24 08/17/24 History
loperamide 2 mg tablet (Imodium 2 mg PO Q6H PRN diarrhea 08/17/24 08/17/24 History
A-D)
potassium chloride 10 mEq 10 meq PO HS 08/17/24 08/17/24 History
tablet,extended release (Klor-Con)
Review of Systems
-
History Source: Patient
All other systems: Negative unless noted
Constitutional: Fatigue
EENT: No Symptoms
Respiratory: No Symptoms
Cardiac: No Symptoms
Abdomen/GI: Bloody Stools
: No Symptoms
Musculoskeletal: No Symptoms
Skin: No Symptoms
Neurological: No Symptoms
Endocrine: No Symptoms
Hematologic/Lymphatic: No Symptoms
Physical Exam
Vital Signs
Temp Pulse Resp BP Pulse Ox
97.3 F 110 18 115/73 98
08/20/24 07:15 08/20/24 08:06 08/20/24 07:15 08/20/24 08:06 08/20/24 07:15
Lab Results
08/20/24 08:31
Physical Exam
General: Well Developed, Well Nourished and No Apparent Distress
HEENT: Normocephalic, Anicteric and Moist Mucous Membranes
Respiratory: Clear and Non Labored Respirations
Cardiac: S1/S2, Irregular Rhythm and Peripheral Edema
Breast: Deferred by me
GI: Soft, Non Tender, Non Distended and Normal Bowel Sounds
Rectal: Deferred by Provider
Genito-urinary: No Costovertebral Tender
Musculoskeletal: No Clubbing and No Cyanosis
Skin: Warm and Dry
Neuro: AO x 3
Hematologic/Lymphatic: No Lymphadenopathy
Psych: Calm
Impression / Plan
-
I/P: 54F with ESRD on HD, atrial fibrillation (type unknown, on apixaban), heart failure (presumed HFpEF), type 2 diabetes mellitus, anemia of chronic disease, and chronic hypotension who presented to the emergency department 08/17/2024 presented with
BRBPR. Cardio consult for RVR.
Atrial fibrillation with rapid ventricular response
- Type of atrial fibrillation unknown, paroxysmal versus persistent versus permanent (EKG 04/2024 also in atrial fibrillation)
- Rates elevated, diltiazem increased to 180mg by primary service
- No plans to restore sinus rhythm this admission
- Oral Anticoagulation: Apixaban 5 mg twice daily on hold
- [id number]: Score at least 2 (Heart failure, Diabetes Mellitus, prior Stroke/TIA, Vascular disease, age 65-74, female gender)
GI bleed, lower
- Apixaban on hold
- GI following, plans for flex sig this admission
HFpEF, chronic
- On torsemide 20 mg daily in addition to hemodialysis
- Echocardiogram when rates are better controlled
LE edema, chronic
- LLE with skins changes, likely chronic
- Element of lymphedema, consider lymphedema clinic as an outpatient
ESRD on HD, per nephrology
Hypotension, chronic, on midodrine
Type 2 diabetes mellitus
Obesity, BMI 52.9, Ozempic now on hold
Data Reviewed
-
EKG: Report Reviewed by me
Radiology: Report Reviewed by me (CXR: No radiographic evidence of pneumonia. Relatively stable mild generalized prominence of bronchovascular markings.)
Labs: Labs Reviewed by me
Old Records: Reviewed
[2024-08-20 10:18] LABS: Blood Urea Nitrogen 11 mg/dl (7-17); Calcium 8.7 mg/dl (8.4-10.2); Carbon Dioxide 28 mmol/L (22-30); Chloride 100 mmol/L (98-107); Estimated Creatinine Clearance 33 ml/min; Glucose 67 mg/dl (70-99); Potassium 3.2 mmol/L (3.5-5.1); Sodium 135 mmol/L (135-145); eGFR 19.22
[2024-08-20 11:30] VITALS: BP 117/77; BMI 53.2
--- NOTE | 2024-08-20 11:39 | W.PN.NEPH.PH ---
Today's Communication / Plan
-
HD tomorrow
Assessment/Plan
-
54y F with PMH significant for A-Fib, ESRD on HD and morbid obesity who presents to ED from [place] [facility] for evaluation of bloody stools.
Assessment
ESRD Monday last dialysis Monday/
A-fib
GI bleed+/diarrhea= rule out infectious cause, holding Ozempic
Hypotension
Diabetes mellitus type 2
Hypothyroidism
MOrbid Obesity
Previous catheter exit site infection
Plan
Flex sig tomorrow
HD tomorrow after flex sig
Holding Eliquis
-
-
Date of Service: August 20, 2024
CC / HPI / ROS
-
Chief Complaint:
Presents with diarrhea and bloody stools end-stage renal disease
History of Present Illness:
ESRD with bright red blood per rectum Monday
Tolerated dialysis yesterday
BP stable
hemoglobin stable 11.6
Review of Systems:
No chest pain or shortness of breath
Labs
-
Labs:
WBC 7.0 10^3/uL (4.8-10.8) 08/20/24 08:31
RBC 4.14 10^6/uL (4.20-5.40) L 08/20/24 08:31
Hgb 11.6 g/dL (12.0-16.0) L 08/20/24 08:
Hct 34.9 % (37.0-47.0) L 08/20/24 08:
Plt Count 77 10^3/uL (130-400) L 08/20/24 08:31
Sodium 135 mmol/L (135-145) 08/20/24 08:
Potassium 3.2 mmol/L (3.5-5.1) L 08/20/24 08:31
Chloride 100 mmol/L (98-107) 08/20/24 08:31
Carbon Dioxide 28 mmol/L (22-30) 08/20/24 08:31
BUN 11 mg/dl (7-17) 08/20/24 08:31
Creatinine 2.8 mg/dL (0.6-1.0) H 08/20/24 08:31
eGFR 19.22 08/20/24 08:31
Glucose 67 mg/dl (70-99) L 08/20/24 08:31
Calcium 8.7 mg/dl (8.4-10.2) 08/20/24 08:31
Phosphorus 4.6 mg/dl (2.5-4.5) H 08/17/24 06:01
Albumin 2.6 g/dl (3.5-5.0) L 08/16/24 21:56
Physical Exam
-
Vital Signs:
Vital Signs
Temp Pulse Resp BP Pulse Ox
97.3 F 110 18 115/73 98
08/20/24 07:15 08/20/24 08:06 08/20/24 07:15 08/20/24 08:06 08/20/24 07:15
Cardiovascular:: Regular rate and rhythm
Respiratory:: Bilateral: Coarse
Lung Excursion:: Normal
Abdomen:: Nontender and Soft
Bowel Sounds:: Normal
Extremity Edema:: +1: Bilateral:
[2024-08-20] MEDS: KCL ELIXIR 40 MEQ PO (11:44)
[2024-08-20 11:58] LABS: Glucose - Point of Care 72 mg/dl (70-99)
[2024-08-20] MEDS: CARDIZEM 60 MG PO ×3 (12:44→21:02)
--- NOTE | 2024-08-20 13:30 | CM ---
CM following for coordination of return to [facility] where pt is a LTC resident.
Pt will need ambulance transport to [facility] at discharge. Bariatric ambulance to be requested for transport.
Plan: Return to LTC at [facility].
[facility] report: [phone]
[facility]
--- NOTE | 2024-08-20 14:07 | W.PN.UPDATE ---
Update Note
Progress Note Update
Poor prep today. Discussed with patient. Discussed with nephrology-okay to use Colyte. Will reprep for colonoscopy tomorrow
--- NOTE | 2024-08-20 15:58 | CARDSERVLU ---
Echocardiogram with [facility] completed after protocol screening completed. Allergies verified.
Patent IV site: _Right antecubital IV site new site 22 G PC____
IV site flushed with 0.9% NaCl pre and post administration.
Diluted bolus method utilized to enhance visualization of ventricular adkins.
Total volume given: __3__ mL
Patient tolerated all procedures well without complications.
Left antecubital 24 G PC D/C ed as unable to flush. Catheter D/C ed , site clear, 2x2 applied and taped. Report called to floor.
[2024-08-20 16:05] VITALS: BP 115/81
[2024-08-20] MEDS: NULYTELY SOLUTION 4 LITERS PO (16:15)
[2024-08-20 17:02] LABS: Glucose - Point of Care 60 mg/dl (70-99)
[2024-08-20 18:05] LABS: Glucose - Point of Care 74 mg/dl (70-99)
[2024-08-20 19:00] VITALS: BP 106/69
[2024-08-20 19:16] LABS: Glucose - Point of Care 77 mg/dl (70-99)
[2024-08-20] MEDS: KCL PO (21:02)
[2024-08-20] MEDS: PEPCID 20 MG PO (21:02)
[2024-08-20 21:06] LABS: Glucose - Point of Care 74 mg/dl (70-99)
[2024-08-20 23:00] VITALS: BP 99/68
[2024-08-21] VITALS (8 sets, daily range): BP systolic 100–112; BP diastolic 50–73; BMI 53.3
--- NOTE | 2024-08-21 02:09 | PTCARENOTE ---
Patient ordered Colyte bowel prep for flexible sigmoidoscopy in AM. Could not be done on 08/20 due to not being cleared out. This RN has been encouraging patient throughout the night to drink prep. Patient drank 2 cups of Colyte with no BM. Patient
stated to this RN, 'I'm not drinking anymore of this. I can't do it.' This RN explained the importance of drinking bowel prep in order for the procedure to be performed in the morning. Patient stated, 'I don't care if the procedure can't be done. I
am not drinking anymore of this.' On-call insulation worker apprentice notified. Plan of care ongoing.
[2024-08-21] MEDS: KCL PO (02:10)
[2024-08-21 03:01] LABS: Glucose - Point of Care 64 mg/dl (70-99)
--- NOTE | 2024-08-21 03:11 | PTCARENOTE ---
Oral care was not performed on patient because they refused.
[2024-08-21 03:27] LABS: Glucose - Point of Care 71 mg/dl (70-99)
[2024-08-21] MEDS: SYNTHROID 112 MCG PO (05:25)
[2024-08-21 05:30] LABS: Glucose - Point of Care 70 mg/dl (70-99)
[2024-08-21 06:25] LABS: Hematocrit 35.5 % (37.0-47.0); Hemoglobin 11.7 g/dL (12.0-16.0); Mean Corpuscular Hgb 28.1 pg (27.0-31.0); Mean Corpuscular Volume 85.1 fL (81.0-99.0); Mean Platelet Volume 10.7 fL (7.4-10.4); Platelet Count 89 10^3/uL (130-400); Red Blood Cell Count 4.17 10^6/uL (4.20-5.40); White Blood Cell Count 7.3 10^3/uL (4.8-10.8)
[2024-08-21 06:47] LABS: Blood Urea Nitrogen 15 mg/dl (7-17); Calcium 8.7 mg/dl (8.4-10.2); Carbon Dioxide 28 mmol/L (22-30); Chloride 98 mmol/L (98-107); Estimated Creatinine Clearance 28 ml/min; Glucose 78 mg/dl (70-99); Potassium 4.1 mmol/L (3.5-5.1); Sodium 132 mmol/L (135-145); eGFR 15.78
[2024-08-21 07:39] LABS: Glucose - Point of Care 70 mg/dl (70-99)
--- NOTE | 2024-08-21 08:27 | W.PN.CD ---
Today's Communication / Plan
-
Switch diltiazem to long acting 240mg daily and monitor BPs
Impression / Plan
-
I/P: 54F with ESRD on HD, atrial fibrillation (type unknown, on apixaban), heart failure (presumed HFpEF), type 2 diabetes mellitus, anemia of chronic disease, and chronic hypotension who presented to the emergency department 08/17/2024 presented with
BRBPR. Cardio consult for RVR.
Atrial fibrillation with rapid ventricular response
- Type of atrial fibrillation unknown, paroxysmal versus persistent versus permanent (EKG 04/2024 also in atrial fibrillation)
- Convert diltiazem to long-acting 240mg daily and monitor BPs
- No plans to restore sinus rhythm this admission
- Oral Anticoagulation: Apixaban 5 mg twice daily on hold
- [id number]: Score at least 2 (Heart failure, Diabetes Mellitus, prior Stroke/TIA, Vascular disease, age 65-74, female gender)
GI bleed, lower
- Apixaban on hold
- GI following, plans for cscope today
HFpEF, chronic
- On torsemide 20 mg daily in addition to hemodialysis
- TTE 08/20/24: LVEF 70-75%, mild LVH, no VHD
LE edema, chronic
- LLE with skins changes, likely chronic
- Element of lymphedema, consider lymphedema clinic as an outpatient
ESRD on HD, per nephrology
Hypotension, chronic, on midodrine
Type 2 diabetes mellitus
Obesity, BMI 52.9, Ozempic now on hold
Subjective: No CV complaints. Sleeping comfortably
Telemetry: Afib with HR 90-100s
Physical Exam
Vital Signs/Labs
Vital Signs
Temp Pulse Resp BP Pulse Ox
97.3 F 117 18 104/73 93
08/21/24 08:04 08/21/24 08:04 08/21/24 08:04 08/21/24 08:04 08/21/24 08:04
08/20/24 08/21/24 08/22/24
06:59 06:59 06:59
Actual Weight 320 lb 3.2 oz
08/21/24 05:59
08/21/24 05:59
PT 17.4 Sec (11.4-14.6) H 08/16/24 21:56
INR 1.40 08/16/24 21:56
APTT 32.9 Sec (23.4-35.0) 08/16/24 21:56
Magnesium 1.8 mg/dl (1.6-2.3) 08/19/24 04:03
Physical Exam
Constitutional: No acute distress and Comfortable
Cardiovascular: Rhythm/rate is irregular, Pedal edema present and S1S2 is normal
Respiratory: Respiratory effort normal
Data Reviewed
-
Date of Service: August 21, 2024
Medical Decision Making: Reviewed Test Results, Independent Historian Assessment, Test Interpretation and Review of Case with other Provider
EKG: Tracing Personally Visualized and interpreted
Echo: Report Reviewed by me
Labs: Labs Reviewed by me
[2024-08-21] MEDS: CARDIZEM PO (09:09)
[2024-08-21] MEDS: ProAmatine 10 MG PO ×3 (09:19→17:11)
[2024-08-21] MEDS: CARDIZEM CD 240 MG PO (09:19)
[2024-08-21] MEDS: DESENEX/MITRAZOL/ZEASORB 1 APPLIC TOPICAL ×2 (09:20→20:39)
[2024-08-21] MEDS: CYMBALTA DELAYED RELEASE 60 MG PO (09:20)
[2024-08-21] MEDS: LYRICA 75 MG PO (09:20)
[2024-08-21] MEDS: DEMADEX 20 MG PO (09:20)
[2024-08-21] MEDS: PROTONIX 40 MG PO (09:20)
--- NOTE | 2024-08-21 09:45 | W.PN.HOSP.TC ---
Addendum entered and electronically signed by Parish Lyon MD 08/21/24 22:46:
Attending Addendum-
I saw and evaluated the patient. I reviewed the resident�s note and agree with findings and plan as documented in the resident�s note. Sub: no further blood in stools. unable to fnish bowel prep. Patient feels fatigued. HR still uncontrolled.
Asymptomatic. Denies fevers chills NV abd pain CP palps. Full 12 point ROS reviewed and negative except as documented Exam: Vitals reviewed in chart GEN-NAD heart tachycardic irreg irreg lungs clear abd obese soft NT ND pos BS LE b/l 2+ non pitting
edema LT>Right left mild redness no warmth
Plan:
#Lower GI bleed
- likely hemorrhoidal
- resolved
- Diarrhea x several weeks
- Holding Ozempic
-Appreciate GI recs
-Cdiff stool leuks Stool cx and norovirus-neg
-flex sig cancelled- to be done as OP
- restart eliquis
#Chronic Hypotension
- Currently stable
- Patient maintained on midodrine daily + extra on HD days. Continue
- monitor BP
# Atrial Fibrillation with RVR
- still uncontrolled despite increase in Cardizem
- transition from IR CD 240
- check echo 08/20-Normal left ventricular size with hyperdynamic systolic function. LVEF 70-75%.
Mild concentric left ventricular hypertrophy.
No significant valvular disease.
-restart eliquis
# ESRD on HD
- HD / (M/W/F)
- Continue current diuretics
- Follow labs / lytes and adjust as needed.
- Follow I/Os, daily weights
# LLE > Right Chronic Edema
- neg for DVT
# Hypokalemia
- Replete
- continue daily KCl 20mEq
#Chronic HFpEF
#Chronic Hypoxemic Respiratory Failure
- Continue current torsemide and follow weights, I/Os.
- Continue usual O2 supplementation (2L NC).
- likely JACKY will need eval as OP
#DM-II
- No longer on any insulin per [facility] J[facility].
- DC Ozempic
- Low res SSI as needed.
- A1c 4.6
# Hypothyroidism
- Continue levothyroxine
# Hyponatremia
- hypervolemic
- for UF with HD today
- follow BMP
# Morbid Obesity due to excess calories
- Affects all aspects of care.
- Note that patient has experienced marked weight loss since her initial hospitalization - states that she previously weighed > 500 lbs.
- Continue healthy diet and aim to improve activity
# Depression - cont duloxetine
# PN- cont lyrica
DVT Prophylaxis: SCDs while anticoagulation on hold.
Code Status: DNR
Dispo DC back to [facility] in am
Time spent coordinating care, review of plan of care with resident, personally reviewed records in EMR, med rec, consults, notes, labs, radiology, d/w nursing and cards � 51 mins
Original Note:
Today's Communication/Plan
-
Hemodialysis today
Resume eliquis
Continue to monitor heart rate and blood pressure
Assessment / Plan
Assessment / Plan
Impression
Patient is a 54y F with PMH of diabetes mellitus, morbid obesity, A-fib, and end-stage renal disease with hemodialysis every Monday and Monday. Started on Ozempic 2 months ago most likely for weight loss. Reason for admission diarrhea
and loss of appetite for several weeks, and bright red blood per rectum that was noticed by the nurse practitioner at [facility].
Assessment and plan
Paroxysmal atrial fibrillation
Patient has heart rate ranging from 90s to 120s
Cardiology consult appreciated-shifted the patient to long-term diltiazem to 240 mg daily
Amiodarone 200mg twice daily
Continue to monitor heart rate and blood pressures
GI and cardiology agreeable to resume Eliquis
Lower GI bleed
Painless rectal bleeding
No previous history of any hemorrhoids, colonoscopy, or any other GI issues.
On Eliquis for A-fib,-no further GI bleed for last 4 days-resume Eliquis based on risk versus benefit
Hemoglobin stable-did not receive any blood products
Blood pressure stable
C. difficile and stool leukocytes negative
Stool culture negative, norovirus negative
GI consult appreciated-considered flexible sigmoidoscopy/colonoscopy-body habitus limitations/heart rate unstable/patient not able to prep
Diarrhea
3 loose stools overnight, no blood, no nausea or vomiting
Appetite is coming back
GI consult appreciated-infectious/inflammatory/Ozempic related
Could not do flexible sigmoidoscopy as patient not able to prep
Resume diet/okay to resume Eliquis
Redness and swelling of left lower leg secondary to DVT
Ultrasound-negative for any deep vein thrombosis
Resumed Eliquis
Probably secondary to chronic lymphedema
Chronic Hypotension
Blood pressure stable
On midodrine 10 mg 3 times daily, extra midodrine on hemodialysis day
Hemodialysis session due today
Other medical problems
ESRD on HD-last hemodialysis on 08/19, next hemodialysis session due today
Nephrology following
Follow input output, daily weights, renal function tests and electrolytes
Hypokalemia-replete as needed
GERD-consider oral PPI
Chronic HFpEF-continue torsemide 20 mg daily, breathing on room air now
DM-II -blood sugars running low, HbA1c 4.6
Hypothyroidism - Continue levothyroxine
Morbid Obesity due to excess calories - Affects all aspects of care.
DVT Prophylaxis: SCDs , Eliquis on hold due to GI issues
Code Status: DNR
Anticipated Discharge: Within 24 hours
Subjective/Interval History
-
Date of Service: August 21, 2024
Patient seen lying, currently breathing on room air, has a hemodialysis session due today
She feels her appetite is coming back
Objective Data
-
Labs:
Laboratory Results
08/21/24
05:59
WBC 7.3
Hgb 11.7 L
Hct 35.5 L
Plt Count 89 L
Sodium 132 L
Potassium 4.1 D
Chloride 98
Carbon Dioxide 28
BUN 15
Creatinine 3.3 H
Glucose 78
Calcium 8.7
Vital Signs:
Vital Signs
Temp Pulse Resp BP Pulse Ox
97.3 F 117 18 104/73 93
08/21/24 08:04 08/21/24 09:19 08/21/24 08:04 08/21/24 09:19 08/21/24 08:04
I&O
08/20/24 08/21/24 08/22/24
06:59 06:59 06:59
Intake Total 480 / 480 960 / 960
Output Total 500 / 500
Balance -20 / -20 960 / 960
Review of Systems
-
All other systems: Reviewed and negative
Physical Exam
-
General: Well Developed, Well Nourished, Morbidly Obese and Other (sitting in bed and breathing on room air)
HEENT: Normocephalic, Atraumatic and Moist Mucous Membranes
Respiratory: Other (Bilateral fine crackles at lung bases,Left internal jugular hemodialysis catheter)
Cardiac: Irregular Rhythm (Irregularly irregular), Tachycardic and Other (Bilateral leg swelling)
GI: Soft, Nontender, Nondistended and Normal Bowel Sounds
Musculoskeletal: No Clubbing, No Cyanosis, Edema, Right Lower Extrem, Edema, Left Lower Extrem and Other (Redness of legs, nonpitting edema, pulses palpable)
Skin: Warm and Dry
Neuro: Awake and Oriented
Psych: Depressed
--- NOTE | 2024-08-21 10:26 | CM ---
Addendum entered by Radha Rankin 08/21/24 12:07:
Pt is not cleared for discharge at this time per [employer]. [facility] unix administrator notified of same.
CM to follow to coordinate discharge plans when medically ready for transfer to [place].
Original Note:
CM following for discharge planning for return to [facility] SNF with HD.
Per Jazzy [facility] Performance Management Consultant, pt has been at [facility] multiple times and always ends up staying at the facility, so SNF authorization is being requested.
PT notes indicate no skilled needs due to pt being bed bound/non-ambulatory and use of bora lift at baseline; VM left for Jazzy requesting return call to discuss.
Plan: CM to follow; awaiting response from [facility].
[2024-08-21] MEDS: ELIQUIS 5 MG PO ×2 (10:58→20:40)
--- NOTE | 2024-08-21 11:53 | W.PN.GI.CBS2 ---
Today's Communication / Plan
-
resume diet
Assessment / Plan
-
Patient is a 54-year-old female with history of morbid obesity with BMI 54, atrial fibrillation on Eliquis, recent hemodialysis catheter infection in May requiring significant antibiotics sent by [facility] with diarrhea and bright
red blood
# Diarrhea with prior to admission 2 to 3 days having some bright red blood clot
--Bleeding has stopped, likely local like hemorrhoidal
-- Patient's blood pressure is stable currently, but heart rates are still in the 130s, no longer on diltiazem drip
-- Infectious versus microscopic versus medication induced versus inflammatory versus ischemic versus neoplasm
-- Stool studies -C. difficile negative, negative leukocytes, norovirus pending, culture pending
-- No imaging was done but patient needs to be confirmed for permanent dialysis prior to any IV contrast
-- She has no significant abdominal pain right now but if she does develop it would consider CAT scan
-- Eliquis on hold
-- Once daily PPI is fine
#�Malnourished -despite significant obesity patient is not taking an adequate oral nutrition
-- Would hold Ozempic which may also be causing her diarrhea
# End-stage renal disease on HD -patient states this is permanent but before any IV contrast make sure this is the case
plan
Patient refused bowel prep yesterday( attempted for last 2 days ) . As per nursing her stools are solid/semisolid brown. I had a long discussion with the patient at bedside this a.m. discussed with her the importance of bowel prep for optimal /
safe examination.
Benefits and risks of colonoscopy discussed in detail. Patient verbalized understanding and would like to hold off on colonoscopy/ flex sig (she understands the possibility of missing colonic neoplasm by not doing colonoscopy etc)
Okay to resume previous diet
Okay to resume Eliquis
monitor H/H
No further GI recommendation at this point. Will sign off
Total Time Spent with Patient (in minutes): 35
Subjective
Subjective
Date of Service: August 21, 2024
Patient refused to drink bowel prep. Denies any rectal bleeding
Objective
Data Reviewed
Laboratory Data:
Laboratory Results
08/21/24 05:59
08/21/24 05:59
Laboratory Results
PT 17.4 Sec (11.4-14.6) H 08/16/24 21:56
INR 1.40 08/16/24 21:56
APTT 32.9 Sec (23.4-35.0) 08/16/24 21:56
Phosphorus 4.6 mg/dl (2.5-4.5) H 08/17/24 06:01
Magnesium 1.8 mg/dl (1.6-2.3) 08/19/24 04:03
Total Bilirubin 1.8 mg/dl (0.2-1.3) H 08/16/24 21:56
AST 27 U/L (14-36) 08/16/24 21:56
ALT 17 U/L (0-35) 08/16/24 21:56
Alkaline Phosphatase 193 U/L (38-126) H 08/16/24 21:56
Vital Signs and I&O:
Vital Signs
Temp Pulse Resp BP Pulse Ox
97.7 F 94 18 111/59 98
08/21/24 11:00 08/21/24 11:00 08/21/24 11:00 08/21/24 11:00 08/21/24 11:00
I&O
08/20/24 08/21/24 08/22/24
06:59 06:59 06:59
Intake Total 480 / 480 960 / 960
Output Total 500 / 500
Balance -20 / -20 960 / 960
Physical Exam
Physical Exam
GI: Soft, Non Distended and Non Tender
[2024-08-21 12:07] LABS: Glucose - Point of Care 75 mg/dl (70-99)
--- NOTE | 2024-08-21 13:13 | W.PN.NEPH.HD ---
Assessment
-
HD tolerating
Progress Note - Hemodialysis
-
Date of Service: August 21, 2024
Duration: 30 minutes and 3 hours
Potassium Bath: 3
Calcium Bath: 2.5
Opti-Dialyzer: 160
Ultrafiltration: Other (2kg)
Blood Flow: 400
Dialysate Flow: 600
Heparin: 0
EPO: 0
[2024-08-21] MEDS: FLEXBUMIN 25% FOR HEMODIALYSIS 12.5 GRAMS IV ×2 (13:50→15:00)
[2024-08-21] MEDS: MANNITOL 25% 12.5 GRAMS IV ×2 (13:53→15:03)
[2024-08-21] MEDS: HEPARIN 4600 UNITS INTRACATH (16:17)
[2024-08-21 16:52] LABS: Glucose - Point of Care 81 mg/dl (70-99)
[2024-08-21 21:24] LABS: Glucose - Point of Care 83 mg/dl (70-99)
[2024-08-21] MEDS: KCL 20 MEQ PO (23:09)
[2024-08-22 03:00] VITALS: BP 118/72; BMI 52.7
[2024-08-22 03:05] VITALS: BP 118/72; BMI 52.7
[2024-08-22 03:14] VITALS: BMI 52.7
[2024-08-22] MEDS: SYNTHROID 112 MCG PO (06:19)
[2024-08-22 06:26] LABS: % Basophils 0.9 % (0-2); % Eosinophils 3.4 % (0-6); % Immature Granulocytes 1.9 % (0-0.5); % Monocytes 11.5 % (1.7-9.3); % Neutrophils 55.3 % (42.2-75.2); Absolute Basophils 0.1 10^3/uL (0-0.2); Absolute Eosinophils 0.2 10^3/uL (0-0.7); Absolute Immature Granulocytes 0.1 10^3/uL (0-0.05); Absolute Lymphocytes 1.9 10^3/uL (1.2-3.4); Absolute Monocytes 0.8 10^3/uL (0.1-0.6); Absolute Neutrophils 3.9 10^3/uL (1.4-6.5); Hematocrit 32.4 % (37.0-47.0); Mean Corpuscular Hgb 28.4 pg (27.0-31.0); Mean Corpuscular Volume 83.5 fL (81.0-99.0); Mean Platelet Volume 10.3 fL (7.4-10.4); Nucleated Red Blood Cells % 0.3 %; Platelet Count 58 10^3/uL (130-400); Red Blood Cell Count 3.88 10^6/uL (4.20-5.40); Red Cell Dist. Width 16.1 % (11.5-14.5)
[2024-08-22 06:46] LABS: ALT (SGPT) 25 U/L (0-35); AST (SGOT) 25 U/L (14-36); Albumin 2.9 g/dl (3.5-5.0); Alkaline Phosphatase 175 U/L (38-126); Blood Urea Nitrogen 8 mg/dl (7-17); Calcium 8.5 mg/dl (8.4-10.2); Carbon Dioxide 27 mmol/L (22-30); Chloride 97 mmol/L (98-107); Estimated Creatinine Clearance 38 ml/min; Glucose 87 mg/dl (70-99); Magnesium 2.2 mg/dl (1.6-2.3); Potassium 3.4 mmol/L (3.5-5.1); Sodium 131 mmol/L (135-145); Total Bilirubin 1.2 mg/dl (0.2-1.3); eGFR 23.12
--- NOTE | 2024-08-22 07:00 | W.PN.HOSP.TC ---
Addendum entered and electronically signed by Parish Lyon MD 08/22/24 23:52:
DC time spent 31 minutes
Addendum entered and electronically signed by Parish Lyon MD 08/22/24 23:51:
Attending Addendum-
I saw and evaluated the patient. I reviewed the resident�s note and agree with findings and plan as documented in the resident�s note. Sub: no further blood in stools. Patient feels fatigued. HR better controlled. Still with diarrhea from prep.
Asymptomatic. Denies fevers chills NV abd pain CP palps. Full 12 point ROS reviewed and negative except as documented Exam: Vitals reviewed in chart GEN-NAD heart tachycardic irreg irreg lungs clear abd obese soft NT ND pos BS LE b/l 2+ non pitting
edema
Plan:
#Lower GI bleed
- likely hemorrhoidal
- resolved
- Diarrhea x several weeks
- Holding Ozempic
-Appreciate GI recs
-Cdiff stool leuks Stool cx and norovirus-neg
-flex sig cancelled- to be done as OP
- restarted eliquis
#Chronic Hypotension
- Currently stable
- Patient maintained on midodrine daily + extra on HD days. Continue
- monitor BP
# Atrial Fibrillation with RVR
- better controlled
- cont Cardizem CD 240
- check echo 08/20-Normal left ventricular size with hyperdynamic systolic function. LVEF 70-75%.
Mild concentric left ventricular hypertrophy.
No significant valvular disease.
-restarted eliquis
# ESRD on HD
- HD / (M/W/)
- Continue current diuretics
- Follow labs / lytes and adjust as needed.
- Follow I/Os, daily weights
# LLE > Right Chronic Edema
- neg for DVT
# Hypokalemia
- Replete
- continue daily KCl 20mEq
#Chronic HFpEF
#Chronic Hypoxemic Respiratory Failure
- DC torsemide and follow weights, I/Os.
- Continue usual O2 supplementation (2L NC).
- likely JACKY will need eval as OP
# Acute in Chronic Thrombocytopenia
- acute drop- unclear etiology
- no bleeding
- CTM
- f/u as OP
#DM-II
- No longer on any insulin per [facility] MAR.
- DC Ozempic
- Low res SSI as needed.
- A1c 4.6
# Hypothyroidism
- Continue levothyroxine
# Hyponatremia
- hypervolemic
- for UF with HD
- follow BMP
# Morbid Obesity due to excess calories
- Affects all aspects of care.
- Note that patient has experienced marked weight loss since her initial hospitalization - states that she previously weighed > 500 lbs.
- Continue healthy diet and aim to improve activity
# Depression - cont duloxetine
# PN- cont lyrica
DVT Prophylaxis: SCDs while anticoagulation on hold.
Code Status: DNR
Dispo DC back to [facility]
Time spent coordinating care, DC planning, review of DC plan of care with resident, transition of care, review of records, med rec/scripts sent electronically, consults, notes, d/w consultants, nursing, family, and CM� mins
Original Note:
Today's Communication/Plan
-
Continue to monitor heart rate
Plan discharge
Assessment / Plan
Assessment / Plan
Impression
Patient is a 54y F with PMH of diabetes mellitus, morbid obesity, A-fib, and end-stage renal disease with hemodialysis every Monday and Monday. Started on Ozempic 2 months ago most likely for weight loss. Reason for admission diarrhea
and loss of appetite for several weeks, and bright red blood per rectum that was noticed by the nurse practitioner at [facility].
Assessment and plan
Paroxysmal atrial fibrillation
Patient has heart rate ranging from 90s to 120s
Cardiology consult appreciated-shifted the patient to long-term diltiazem to 240 mg daily
Continue to monitor heart rate and blood pressures
GI and cardiology agreeable to resume Eliquis
Lower GI bleed
Painless rectal bleeding
No previous history of any hemorrhoids, colonoscopy, or any other GI issues.
On Eliquis for A-fib,-no further GI bleed for last 4 days-resume Eliquis based on risk versus benefit
Hemoglobin stable-did not receive any blood products
Blood pressure stable
C. difficile and stool leukocytes negative
Stool culture negative, norovirus negative
GI consult appreciated-considered flexible sigmoidoscopy/colonoscopy-body habitus limitations/heart rate unstable/patient not able to prep
Diarrhea
1 loose stool yesterday
Appetite is coming back
GI consult appreciated-infectious/inflammatory/Ozempic related
Could not do flexible sigmoidoscopy as patient not able to prep
Resume diet/okay to resume Eliquis
Bilateral lower extremity edema
Ultrasound-negative for any deep vein thrombosis
Resumed Eliquis
Probably secondary to chronic lymphedema
Chronic Hypotension
Blood pressure stable
On midodrine 10 mg 3 times daily, extra midodrine on hemodialysis day
Hemodialysis session due today
Hyponatremia
Discontinue torsemide,continue to monitor
Hypokalemia
Replete as needed
Other medical problems
ESRD on HD-last hemodialysis on 08/19, next hemodialysis session due today
Nephrology following
Follow input output, daily weights, renal function tests and electrolytes
Hypokalemia-replete as needed
GERD-consider oral PPI
Chronic HFpEF-continue torsemide 20 mg daily, breathing on room air now
DM-II -blood sugars running low, HbA1c 4.6
Hypothyroidism - Continue levothyroxine
Morbid Obesity due to excess calories - Affects all aspects of care.
DVT Prophylaxis: SCDs , Eliquis on hold due to GI issues
Code Status: DNR
Anticipated Discharge: 24 - 48 hours
Subjective/Interval History
-
Date of Service: August 22, 2024
Patient feeling very weak and tired with no appetite
Objective Data
-
Labs:
Laboratory Results
08/22/24
05:56
WBC 7.0
Hgb 11.0 L
Hct 32.4 L
Plt Count 58 L D
Sodium 131 L
Potassium 3.4 L
Chloride 97 L
Carbon Dioxide 27
BUN 8
Creatinine 2.4 H
Glucose 87
Calcium 8.5
Total Bilirubin 1.2
AST 25
ALT 25
Alkaline Phosphatase 175 H
Vital Signs:
Vital Signs
Temp Pulse Resp BP Pulse Ox
97.9 F 118 14 118/72 92
08/22/24 03:00 08/22/24 03:00 08/22/24 03:00 08/22/24 03:00 08/22/24 03:00
I&O
08/21/24 08/22/24 08/23/24
06:59 06:59 06:59
Intake Total 960 / 960 180 / 180
Balance 960 / 960 180 / 180
Review of Systems
-
All other systems: Reviewed and negative
Physical Exam
-
General: Conversant, Appears Chronically Ill and Other (Currently on 2 L of oxygen)
HEENT: Normocephalic, Atraumatic and Braham Conjunctivae
Respiratory: Clear to Auscultation
Cardiac: Irregular Rhythm (Heart rate 93, variable, irregularly irregular rhythm, no murmurs rubs or gallops)
GI: Soft, Nontender, Nondistended and Normal Bowel Sounds
Musculoskeletal: No Clubbing, Edema, Right Lower Extrem, Edema, Left Lower Extrem and Other (Nonpitting edema, peripheral pulses palpable)
Skin: Warm and Dry
Neuro: Awake and Oriented
Psych: Calm
[2024-08-22 07:05] VITALS: BP 97/67
[2024-08-22 07:20] LABS: Glucose - Point of Care 97 mg/dl (70-99)
[2024-08-22] MEDS: PROTONIX 40 MG PO (08:27)
[2024-08-22] MEDS: ProAmatine 10 MG PO ×3 (08:27→16:40)
[2024-08-22] MEDS: ELIQUIS 5 MG PO (08:28)
[2024-08-22] MEDS: DESENEX/MITRAZOL/ZEASORB 1 APPLIC TOPICAL (08:29)
[2024-08-22] MEDS: DEMADEX PO (08:29)
[2024-08-22] MEDS: CARDIZEM CD 240 MG PO (08:34)
[2024-08-22] MEDS: CYMBALTA DELAYED RELEASE 60 MG PO (08:34)
--- NOTE | 2024-08-22 08:37 | W.PN.CD ---
Today's Communication / Plan
-
- Heart rates slightly elevated at times but fairly controlled overall; cannot increase rate-controlling medications secondary to blood pressure limitations.
- Continue Cardizem CD 240 mg daily.
- Patient declined GI scope.
- Apixaban resumed.
- Given low blood pressure; would consider discontinuing torsemide as patient is on dialysis--will ultimately defer to Nephrology regarding this.
- No further cardiac recommendations at this time; Cardiology remain available on an as-needed basis.
Impression / Plan
-
I/P: 54F with ESRD on HD, atrial fibrillation (type unknown, on apixaban), heart failure (presumed HFpEF), type 2 diabetes mellitus, anemia of chronic disease, and chronic hypotension who presented to the emergency department 08/17/2024 presented with
BRBPR. Patient is nonambulatory and has not walked in over a year. Cardio consult for RVR.
Atrial fibrillation with rapid ventricular response
- Type of atrial fibrillation unknown, paroxysmal versus persistent versus permanent (EKG 04/2024 also in atrial fibrillation)
- Heart rates slightly elevated at times but fairly controlled overall; cannot increase rate-controlling medications secondary to blood pressure limitations.
- Continue Cardizem CD 240 mg daily.
- No plans to restore sinus rhythm this admission
- Oral Anticoagulation: Apixaban 5 mg twice daily on hold
- [id number]: Score at least 2 (Heart failure, Diabetes Mellitus, prior Stroke/TIA, Vascular disease, age 65-74, female gender)
GI bleed, lower
- Resolved; most likely secondary to hemorrhoids.
- Patient declined GI scope.
- Apixaban resumed.
HFpEF, chronic
- Currently on torsemide 20 mg daily in addition to hemodialysis
- TTE 08/20/24: LVEF 70-75%, mild LVH, no VHD.
- Given low blood pressure; would consider discontinuing torsemide as patient is on dialysis--will ultimately defer to Nephrology regarding this.
LE edema, chronic
- LLE with skins changes, likely chronic
- Element of lymphedema, consider lymphedema clinic as an outpatient
- Patient is nonambulatory.
ESRD on HD:
- Continue HD and management as per nephrology.
Hypotension:
-Chronic, on midodrine.
Type 2 diabetes mellitus
Obesity, BMI 52.9, Ozempic now on hold
Subjective:
- No major events overnight. No cardiac complaints this a.m.
Physical Exam
Vital Signs/Labs
Vital Signs
Temp Pulse Resp BP Pulse Ox
97.6 F 93 19 97/67 99
08/22/24 07:05 08/22/24 07:05 08/22/24 07:05 08/22/24 07:05 08/22/24 07:05
08/21/24 08/22/24 08/23/24
06:59 06:59 06:59
Actual Weight 145.24 kg 143.743 kg
08/22/24 05:56
08/22/24 05:56
PT 17.4 Sec (11.4-14.6) H 08/16/24 21:56
INR 1.40 08/16/24 21:56
APTT 32.9 Sec (23.4-35.0) 08/16/24 21:56
Magnesium 2.2 mg/dl (1.6-2.3) 08/22/24 05:56
Physical Exam
Constitutional: No acute distress and Comfortable
EENT: Anicteric
Cardiovascular: Systolic murmur absent, Rhythm/rate is irregular, Pedal edema present (2-3+) and S1S2 is normal
Respiratory: Respiratory effort normal and Lungs clear to auscul.
GI: Soft
Neuro/Psych: AO x 3
Other: Skin (warm, dry)
Data Reviewed
-
Date of Service: August 22, 2024
EKG: Tracing Personally Visualized and interpreted (Telemetry: A-fib)
Echo: Report Reviewed by me (08/20/2024: LVEF 70-75%; no significant valvular disease.)
Labs: Labs Reviewed by me
[2024-08-22 11:05] VITALS: BP 116/76
[2024-08-22 11:43] LABS: Glucose - Point of Care 60 mg/dl (70-99)
--- NOTE | 2024-08-22 11:57 | W.PN.NEPH.PH ---
Today's Communication / Plan
-
Dialysis tomorrow
Assessment/Plan
-
54y F with PMH significant for A-Fib, ESRD on HD and morbid obesity who presents to ED from local [place] for evaluation of bloody stools.
Assessment
ESRD Monday last dialysis Monday/[facility]
A-fib
GI bleed+/diarrhea= rule out infectious cause, holding Ozempic
Hypotension
Diabetes mellitus type 2
Hypothyroidism
MOrbid Obesity
Previous catheter exit site infection
Plan
Patient unable to do prep therefore GI workup aborted
HD tomorrow /refer to orders for details
No acute need for dialysis today
-
-
Date of Service: August 22, 2024
CC / HPI / ROS
-
Chief Complaint:
Presents with diarrhea and bloody stools end-stage renal disease
History of Present Illness:
ESRD with bright red blood per rectum Monday
Tolerated dialysis yesterday
BP stable
hemoglobin stable
Review of Systems:
No chest pain or shortness of breath
Labs
-
Labs:
WBC 7.0 10^3/uL (4.8-10.8) 08/22/24 05:56
RBC 3.88 10^6/uL (4.20-5.40) L 08/22/24 05:56
Hgb 11.0 g/dL (12.0-16.0) L 08/22/24 05:56
Hct 32.4 % (37.0-47.0) L 08/22/24 05:56
Plt Count 58 10^3/uL (130-400) L D 08/22/24 05:56
Sodium 131 mmol/L (135-145) L 08/22/24 05:56
Potassium 3.4 mmol/L (3.5-5.1) L 08/22/24 05:56
Chloride 97 mmol/L (98-107) L 08/22/24 05:56
Carbon Dioxide 27 mmol/L (22-30) 08/22/24 05:56
BUN 8 mg/dl (7-17) 08/22/24 05:56
Creatinine 2.4 mg/dL (0.6-1.0) H 08/22/24 05:56
eGFR 23.12 08/22/24 05:56
Glucose 87 mg/dl (70-99) 08/22/24 05:56
Calcium 8.5 mg/dl (8.4-10.2) 08/22/24 05:56
Phosphorus 4.6 mg/dl (2.5-4.5) H 08/17/24 06:01
Albumin 2.9 g/dl (3.5-5.0) L 08/22/24 05:56
Physical Exam
-
Vital Signs:
Vital Signs
Temp Pulse Resp BP Pulse Ox
97.5 F 113 19 116/76 97
08/22/24 11:05 08/22/24 11:05 08/22/24 11:05 08/22/24 11:05 08/22/24 11:05
Cardiovascular:: Regular rate and rhythm
Respiratory:: Bilateral: Coarse
Lung Excursion:: Normal
Abdomen:: Nontender and Soft
Bowel Sounds:: Normal
Extremity Edema:: +1: Bilateral:
[2024-08-22 12:13] LABS: Glucose - Point of Care 33 mg/dl (70-99)
[2024-08-22 12:14] LABS: Glucose - Point of Care 101 mg/dl (70-99)
[2024-08-22 12:17] LABS: Glucose - Point of Care 79 mg/dl (70-99)
[2024-08-22 12:38] LABS: Glucose - Point of Care 81 mg/dl (70-99)
[2024-08-22 12:38] LABS: Glucose - Point of Care 49 mg/dl (70-99)
[2024-08-22] MEDS: KLOR-CON 40 MEQ PO (13:24)
[2024-08-22 13:41] LABS: Glucose 97 mg/dl (70-99)
--- NOTE | 2024-08-22 13:42 | W.DCSUMMARY ---
Addendum entered and electronically signed by Parish Lyon MD 08/22/24 23:52:
Read, reviewed, and agree. See same day progress note for additional details.
Kenan Lyon MD
Original Note:
Documented by User: Shy Weathers MD, Resident 08/22/24 14:09
Discharge Summary
Discharge Data
Date of Admission: 08/17/24
Date of Discharge: 08/22/24
-
Pending Results: No
Hospital Course
Discharging Physician :
Parish Lyon
Disposition :
prison/SNF
Primary care physician :
Madison Martinez, DO
Principal Discharge diagnosis :
Rapid Atrial fibrillation/Acute lower GI bleed/Hypoglycemia/ESRD
Chronic Discharge diagnosis :
ESRD on maintainence HD MWF
Hypothyroidism
Chronic hypotension
GERD
Chronic HFpEF
Morbid obesity
Hospital Course :
Paroxysmal atrial fibrillation
Patient had heart rate ranging upto 130's
Cardiology consult appreciated-shifted the patient to long-term diltiazem to 240 mg daily,no amish of rhythm done, rate fairly controlled
Lower GI bleed
Painless rectal bleeding
Self limited, resolved on its own, most likely hemorrhoidal
On Eliquis for A-fib,-no further GI bleed for remaining 4 days-resumed Eliquis based on risk versus benefit(GI and cardio consultation)
Hemoglobin stable-did not receive any blood products
Blood pressure stable
C. difficile and stool leukocytes negative
Stool culture negative, norovirus negative
Patient refused sigmoidoscopy as unable to prep
Diarrhea
GI consult appreciated-infectious/inflammatory/Ozempic related
Could not do flexible sigmoidoscopy as patient not able to prep
Bilateral lower extremity edema
Ultrasound-negative for any deep vein thrombosis
Resumed Eliquis
Probably secondary to chronic lymphedema
Important imaging findings :
Duplex venous ultrasound of both lower extremities is performed.
On the right, there is no evidence for deep venous thrombosis from a right common femoral vein through the posterior tibial vein. The proximal right greater saphenous vein is patent.
On the left, the common femoral vein, femoral vein, and popliteal vein are patent. The left posterior tibial and peroneal veins are not visualized. The proximal left greater saphenous vein is patent.
Chest Xray
FINDINGS:
The heart is top normal in size. Mild generalized prominence of bronchovascular markings, without significant change. No focal interstitial or airspace opacity to indicate pneumonia. No pneumothorax. No radiographically demonstrable pleural
effusion. Left-sided internal jugular multilumen catheter in place, distal tip overlying the right atrium. Previous right internal jugular multilumen catheter has been discontinued
Discharge Plan
-
Patient Disposition: [facility]/SNF
Discharge Diagnosis/Procedures: Rapid Atrial fibrillation/Acute lower GI bleed/Hypoglycemia/ESRD
Condition: Fair
Diet: Regular
Activity: As tolerated
Driving Restrictions: As prior to admission
Bathing Restrictions: OK to Shower
Blood Work: Monitor blood glucose levels
Activity Restrictions/Additional Instructions:
Wound Care Instructions
groin and abdominal skin folds: fungal powder bid after bathing daily
L lateral abdominal skin fold: clean with soap and water, dusting of Fungal powder bid followed by non woven gauze prn moisture.
gluteal cleft: clean with soap and water, dusting of fungal powder bid and prn soilage
Instructions: GI bleed, Atrial fibrillation - Discharge instructions
Referrals:
Madison Martinez, DO [Family Provider] - in less than 1 week
Additional Discharge Medication Instructions: Increased diltiazem to long acting 240mg daily
Discontinued ozempic due to diarhea and malnutrition
Discontinued torsemide as patient is on dialysis
Hypolycemia-monitor blood sugar control
Prescriptions:
New
diltiazem HCl 240 mg Capsule,Extended Release 24hr
240 mg PO DAILY 30 Days Qty: 30 0RF
miconazole nitrate [Miconazorb AF] 2 % Powder
1 applic topical BID 7 Days Qty: 9 0RF
Continued
sennosides [senna] 8.6 mg Tablet
17.2 mg PO DAILY
acetaminophen [Tylenol] 325 mg Tablet
650 mg PO Q6HPRN PRN (Reason: mild pain)
lidocaine 4 % Adhesive Patch,Medicated
1 patch TOPICAL DAILY
cetirizine [Zyrtec] 10 mg Tablet
10 mg PO HS
ondansetron HCl 8 mg Tablet
8 mg PO Q6HPRN PRN (Reason: nausea)
simethicone [Gas-X Extra Strength] 125 mg Capsule
125 mg PO Q6HPRN PRN (Reason: gas pain)
potassium chloride 10 mEq Tablet Extended Release
30 meq PO DAILY
famotidine [Pepcid] 20 mg Tablet
20 mg PO HS
docusate sodium [Colace] 100 mg Capsule
100 mg PO BID
bisacodyl [Dulcolax (bisacodyl)] 5 mg Tablet,Delayed Release (Dr/Ec)
10 mg PO DAILY
nystatin 100,000 unit/gram Powder
1 applic TOPICAL TID
sorbitol 70 % Solution
30 ml PO DAILYPRN PRN (Reason: constipation)
midodrine 10 mg Tablet
10 mg PO MOWEFR PRN (Reason: BP < 90/60)
Rx Instructions:
take 1 hour before dialysis
midodrine 10 mg Tablet
10 mg PO TID
pregabalin [Lyrica] 75 mg Capsule
75 mg PO Q48H
Eliquis 5 mg Tablet
5 mg PO BID
duloxetine 60 mg Capsule, Delayed Rel Sprinkle
60 mg PO DAILY
tramadol 25 mg Tablet
25 mg PO Q6HPRN PRN (Reason: moderate pain)
loperamide [Imodium A-D] 2 mg Tablet
2 mg PO Q6H PRN (Reason: diarrhea)
potassium chloride [Klor-Con 10] 10 mEq Tablet Extended Release
10 meq PO HS
levothyroxine 112 mcg Tablet
112 mcg PO DAILY
Discontinued
torsemide 20 mg Tablet
20 mg PO DAILY
diltiazem HCl 120 mg Capsule,Extended Release 24hr
120 mg PO DAILY
Ozempic 0.25 mg or 0.5 mg (2 mg/3 mL) Pen Injector
0.25 mg SC FR
Rx Instructions:
for 4 weeks
Discharge Orders:
Discharge Patient (As Directed); Ordered 08/22/24
Ordered By: Shy Weathers
Discharge Date and Time
Discharge Date/Time: 08/22/24 17:22
Print Language: SYRIAN

Documented by User: Parish Lyon MD 08/22/24 23:45
Discharge Summary
Discharge Data
Date of Admission: 08/17/24
Date of Discharge: 08/22/24
Discharge Plan
-
Patient Disposition: [facility]/SNF
Discharge Diagnosis/Procedures: Rapid Atrial fibrillation/Acute lower GI bleed/Hypoglycemia/ESRD
Condition: Fair
Diet: Regular
Activity: As tolerated
Driving Restrictions: As prior to admission
Bathing Restrictions: OK to Shower
Blood Work: Monitor blood glucose levels
Activity Restrictions/Additional Instructions:
Wound Care Instructions
groin and abdominal skin folds: fungal powder bid after bathing daily
L lateral abdominal skin fold: clean with soap and water, dusting of Fungal powder bid followed by non woven gauze prn moisture.
gluteal cleft: clean with soap and water, dusting of fungal powder bid and prn soilage
Instructions: GI bleed, Atrial fibrillation - Discharge instructions
Referrals:
Madison Martinez DO [Family Provider] - in less than 1 week
Additional Discharge Medication Instructions: Increased diltiazem to long acting 240mg daily
Discontinued ozempic due to diarhea and malnutrition
Discontinued torsemide as patient is on dialysis
Hypolycemia-monitor blood sugar control
Prescriptions:
New
diltiazem HCl 240 mg Capsule,Extended Release 24hr
240 mg PO DAILY 30 Days Qty: 30 0RF
miconazole nitrate [Miconazorb AF] 2 % Powder
1 applic topical BID 7 Days Qty: 9 0RF
Continued
sennosides [senna] 8.6 mg Tablet
17.2 mg PO DAILY
acetaminophen [Tylenol] 325 mg Tablet
650 mg PO Q6HPRN PRN (Reason: mild pain)
lidocaine 4 % Adhesive Patch,Medicated
1 patch TOPICAL DAILY
cetirizine [Zyrtec] 10 mg Tablet
10 mg PO HS
ondansetron HCl 8 mg Tablet
8 mg PO Q6HPRN PRN (Reason: nausea)
simethicone [Gas-X Extra Strength] 125 mg Capsule
125 mg PO Q6HPRN PRN (Reason: gas pain)
potassium chloride 10 mEq Tablet Extended Release
30 meq PO DAILY
famotidine [Pepcid] 20 mg Tablet
20 mg PO HS
docusate sodium [Colace] 100 mg Capsule
100 mg PO BID
bisacodyl [Dulcolax (bisacodyl)] 5 mg Tablet,Delayed Release (Dr/Ec)
10 mg PO DAILY
nystatin 100,000 unit/gram Powder
1 applic TOPICAL TID
sorbitol 70 % Solution
30 ml PO DAILYPRN PRN (Reason: constipation)
midodrine 10 mg Tablet
10 mg PO MOWEFR PRN (Reason: BP < 90/60)
Rx Instructions:
take 1 hour before dialysis
midodrine 10 mg Tablet
10 mg PO TID
pregabalin [Lyrica] 75 mg Capsule
75 mg PO Q48H
Eliquis 5 mg Tablet
5 mg PO BID
duloxetine 60 mg Capsule, Delayed Rel Sprinkle
60 mg PO DAILY
tramadol 25 mg Tablet
25 mg PO Q6HPRN PRN (Reason: moderate pain)
loperamide [Imodium A-D] 2 mg Tablet
2 mg PO Q6H PRN (Reason: diarrhea)
potassium chloride [Klor-Con 10] 10 mEq Tablet Extended Release
10 meq PO HS
levothyroxine 112 mcg Tablet
112 mcg PO DAILY
Discontinued
torsemide 20 mg Tablet
20 mg PO DAILY
diltiazem HCl 120 mg Capsule,Extended Release 24hr
120 mg PO DAILY
Ozempic 0.25 mg or 0.5 mg (2 mg/3 mL) Pen Injector
0.25 mg SC FR
Rx Instructions:
for 4 weeks
Discharge Orders:
Discharge Patient (As Directed); Ordered 08/22/24
Ordered By: Shy Weathers
Discharge Date and Time
Discharge Date/Time: 08/22/24 17:22
Print Language: SYRIAN
--- NOTE | 2024-08-22 14:19 | CM ---
CM following for coordination of return to [facility] where pt is a LTC resident. Pt cleared for discharge today.
Pt will need ambulance transport to [facility] at discharge. Bariatric ambulance to be requested for transport.
Plan: Return to LTC at [facility].
[facility] report: [phone]
[facility]
[2024-08-22 15:05] VITALS: BP 98/74
[2024-08-22 16:27] LABS: Glucose - Point of Care 108 mg/dl (70-99)
== END 2024-08-22 17:22 | DRG 377 ==
LOC: 3 WEST ACU 04:17
PROVIDERS: Emergency Medicine; Specialist; Student in an Organized Health Care Education/Training Program; ADMITTING PHYSICIAN Hospitalist; ATTENDING PHYSICIAN Family Medicine; CONSULT PHYSICIAN Internal Medicine; CONSULT PHYSICIAN Internal Medicine Nephrology; CONSULT PHYSICIAN Student in an Organized Health Care Education/Training Program; EMERGENCY PHYSICIAN Emergency Medicine; FAMILY PHYSICIAN Internal Medicine
PROC: 5A1D70Z Performance of Urinary Filtration, Intermittent, Less than 6 Hours Per Day (ICD-10-PCS; 2024-08-19)
DX: K92.2 Gastrointestinal hemorrhage, unspecified (principal); N18.6 End stage renal disease; I50.32 Chronic diastolic (congestive) heart failure; J96.11 Chronic respiratory failure with hypoxia; Z68.43 Body mass index [BMI] 50.0-59.9, adult; I48.0 Paroxysmal atrial fibrillation; Z79.01 Long term (current) use of anticoagulants; E11.649 Type 2 diabetes mellitus with hypoglycemia without coma; E11.22 Type 2 diabetes mellitus with diabetic chronic kidney disease; E66.01 Morbid (severe) obesity due to excess calories; K59.00 Constipation, unspecified; Z79.899 Other long term (current) drug therapy; F32.A Depression, unspecified; F41.9 Anxiety disorder, unspecified; Z79.890 Hormone replacement therapy; Z99.2 Dependence on renal dialysis; E03.9 Hypothyroidism, unspecified; I95.89 Other hypotension; K21.9 Gastro-esophageal reflux disease without esophagitis; I89.0 Lymphedema, not elsewhere classified; D63.1 Anemia in chronic kidney disease; Z66 Do not resuscitate; Z79.84 Long term (current) use of oral hypoglycemic drugs; Z86.14 Personal history of Methicillin resistant Staphylococcus aureus infection
CPT/HCPCS: 71045; 80048; 80053; 82947; 82962; 83036; 83735; 84100; 85014; 85018; 85025; 85027; 85610; 85730; 86850; 86900; 86901; 87045; 87046; 87324; 87340; 87427; 87449; 87798; 89055; 93005; 93306; 93970; 96361; 96365; 96366; 96375; 99291; G0257; J2997; P9047; Q9950

== ENCOUNTER 2024-09-04 16:50 | Emergency (ER) | payer BC, OTHER, SELFPAY ==
[2024-09-04] VITALS (14 sets, daily range): BP systolic 79–107; BP diastolic 51–92
[2024-09-04 17:17] LABS: Venous Blood Gas B.E. 5.1 mmol/L (-4 to +4); Venous Blood Gas O2 Sat % 56.1 %; Venous Blood Gas pCO2 58 mmHg (35-48); Venous Blood Gas pH 7.35 (7.32-7.43); Venous Blood Gas pO2 33 mmHg (30-50)
[2024-09-04 17:20] LABS: % Basophils 0.8 % (0-2); % Eosinophils 2.1 % (0-6); % Immature Granulocytes 1.2 % (0-0.5); % Lymphocytes 28.1 % (20.5-51.1); % Monocytes 9.6 % (1.7-9.3); % Neutrophils 58.2 % (42.2-75.2); Absolute Basophils 0.1 10^3/uL (0-0.2); Absolute Eosinophils 0.1 10^3/uL (0-0.7); Absolute Immature Granulocytes 0.1 10^3/uL (0-0.05); Absolute Lymphocytes 1.9 10^3/uL (1.2-3.4); Absolute Monocytes 0.6 10^3/uL (0.1-0.6); Absolute Neutrophils 3.8 10^3/uL (1.4-6.5); Hematocrit 30.3 % (37.0-47.0); Hemoglobin 10.3 g/dL (12.0-16.0); Mean Corpuscular Hgb 27.8 pg (27.0-31.0); Mean Corpuscular Volume 81.7 fL (81.0-99.0); Mean Platelet Volume 9.9 fL (7.4-10.4); Nucleated Red Blood Cells % 0.5 %; Platelet Count 127 10^3/uL (130-400); Red Blood Cell Count 3.71 10^6/uL (4.20-5.40); Red Cell Dist. Width 18.2 % (11.5-14.5); White Blood Cell Count 6.6 10^3/uL (4.8-10.8)
--- NOTE | 2024-09-04 17:23 | ED.GENMED ---
History of Present Illness
<Davi Og PA-C - Last Filed: 09/04/24 20:01>
General
Chief Complaint: Change in Mental Status
Time Seen by Provider: 09/04/24 16:54
History of Present Illness
History of Present Illness:
54-year-old female with history of end-stage renal disease on dialysis, morbid obesity, A-fib on Eliquis, and type II insulin-dependent diabetes presents to the emergency department for evaluation of abrupt change in mental status. She reportedly
returned from dialysis at 1400, was reportedly fatigued but otherwise appropriate which is her normal after dialysis. At 1545 she had staff called to the room due to abrupt change in mental status. On arrival to the ED she is displaying dense
hemiparesis on the left and is unable to verbalize any complaints. She is also noted to be hypotensive. Stroke alert called promptly after initial evaluation
Review of Systems
<Davi Og PA-C - Last Filed: 09/04/24 20:01>
Review of Systems
Allergies reviewed?: Yes
All Other Systems: ROS reviewed and negative except as documented in HPI and ROS
Phy Exam
<Davi Og PA-C - Last Filed: 09/04/24 20:01>
Physical Exam
Physical Exam:
GEN: Well appearing, NAD, WDWN
HEENT: Oral mucosa moist, no scleral icterus, no nasal congestion
Cardiac: Regular rate
Lung: No respiratory distress, no tachypnea
MSK: No gross deformity or injuries
Skin: Good color, no pallor or jaundice, no rashes
Neuro: GCS of 10 (E3 V1 M6) with fixed right gaze, left facial paralysis and dense left hemiparesis. Withdraws to painful stimulus in all 4 extremities, does follow commands however nonverbal at this moment
Psych: Calm, cooperative
Scores
<RICKI Sadler Last Filed: 09/04/24 20:01>
NIH Stroke Score
Level of Consciousness: 1 - Arousable
LOC Questions: 2-Neither correct
LOC Commands: 0-Performs both correctly
Best Horizontal Gaze: 2-Total gaze palsy
Visual Pino: 0=Normal, no visual loss (Unable to assess)
Facial Palsy: 3=Complete paralysis
Motor - Right Arm: 0=No drift 10 seconds
Motor - Left Arm: 4=No movement
Motor - Right Le-No drift 5 seconds
Motor - Left Le-No movement
Limb Ataxia: 1-Present in one limb
Sensation: 2-Severe loss
Best Language: 3-Mute/global aphasia
Dysarthria: UN-Intubated, other
Extinction and Inattention: 2-Total vijaya inattention
NIH Total Score:: 24
Course
<Davi Og PA-C - Last Filed: 09/04/24 20:01>
Orders/Labs/Results
Orders:
Orders
09/04/24 Dinner
NPO
Allow oral meds: No
Allow clear liquids: No
09/04/24 16:58
Electrocardiogram (*1) Stat
Reason for Study: Other
Other Reason for Exam: neuro symptoms
CT HEAD STROKE ALERT W/o Cont Urgent
Comment:
Reason For Exam: L hemiparesis
CT HEAD/NECK ANG STROKE ALERT Urgent
Comment:
Reason For Exam: L hemiparesis
EKG- Treatment ONCE
09/04/24 17:06
Type+Screen Urgent
Complete Blood Count/With Diff Urgent
Comprehensive Metabolic Panel Urgent
Lactic Acid Urgent
Troponin I Urgent
Venous Blood Gas Urgent
%Oxygen/Room Air: 91
09/04/24 19:14
0.9% Sodium Chloride 500 ml [Nss] 500 ml IV BOLUS
Abnormal Lab Results
09/04/24
17:06
RBC 3.71 L 10^6/uL
(4.20-5.40)
Hgb 10.3 L g/dL
(12.0-16.0)
Hct 30.3 L %
(37.0-47.0)
RDW 18.2 H %
(11.5-14.5)
Plt Count 127 L 10^3/uL
(130-400)
Abs Immat Gran (auto) 0.1 H 10^3/uL
(0-0.05)
Immature Gran % 1.2 H %
(0-0.5)
Monocytes % 9.6 H %
(1.7-9.3)
VBG pCO2 58 H mmHg
(35-48)
VBG HCO3 32.0 H mmol/L
(22-27)
Sodium 133 L mmol/L
(135-145)
Potassium 3.3 L mmol/L
(3.5-5.1)
Creatinine 2.1 H mg/dL
(0.6-1.0)
Glucose 128 H mg/dl
(70-99)
Lactic Acid 2.6 H mmol/L
(0.7-2.0)
Calcium 7.9 L mg/dl
(8.4-10.2)
Total Bilirubin 1.5 H mg/dl
(0.2-1.3)
AST 56 H U/L
(14-36)
Alkaline Phosphatase 225 H U/L
(38-126)
Troponin I 0.551 H* ng/ml
Total Protein 5.8 L g/dl
(6.3-8.2)
Albumin 2.4 L g/dl
(3.5-5.0)
09/04/24 17:06
09/04/24 17:06
Vital Signs
Initial and Last Documented VS:
Initial Vital Signs
Temp Pulse Resp BP Pulse Ox
99.4 F 145 18 81/56 97
09/04/24 16:58 09/04/24 16:58 09/04/24 16:58 09/04/24 16:58 09/04/24 16:58
Last Documented Vital Signs
Temp Pulse Resp BP Pulse Ox
99.4 F 130 20 107/65 96
09/04/24 16:58 09/04/24 19:45 09/04/24 19:45 09/04/24 19:45 09/04/24 18:23
<Silas Stevenson, DO - Last Filed: 09/04/24 19:40>
Orders/Labs/Results
Orders:
Orders
09/04/24 Dinner
NPO
Allow oral meds: No
Allow clear liquids: No
09/04/24 16:58
Electrocardiogram (*1) Stat
Reason for Study: Other
Other Reason for Exam: neuro symptoms
CT HEAD STROKE ALERT W/o Cont Urgent
Comment:
Reason For Exam: L hemiparesis
CT HEAD/NECK ANG STROKE ALERT Urgent
Comment:
Reason For Exam: L hemiparesis
EKG- Treatment ONCE
09/04/24 17:06
Type+Screen Urgent
Complete Blood Count/With Diff Urgent
Comprehensive Metabolic Panel Urgent
Lactic Acid Urgent
Troponin I Urgent
Venous Blood Gas Urgent
%Oxygen/Room Air: 91
09/04/24 19:14
0.9% Sodium Chloride 500 ml [Nss] 500 ml IV BOLUS
Abnormal Lab Results
09/04/24
17:06
RBC 3.71 L 10^6/uL
(4.20-5.40)
Hgb 10.3 L g/dL
(12.0-16.0)
Hct 30.3 L %
(37.0-47.0)
RDW 18.2 H %
(11.5-14.5)
Plt Count 127 L 10^3/uL
(130-400)
Abs Immat Gran (auto) 0.1 H 10^3/uL
(0-0.05)
Immature Gran % 1.2 H %
(0-0.5)
Monocytes % 9.6 H %
(1.7-9.3)
VBG pCO2 58 H mmHg
(35-48)
VBG HCO3 32.0 H mmol/L
(22-27)
Sodium 133 L mmol/L
(135-145)
Potassium 3.3 L mmol/L
(3.5-5.1)
Creatinine 2.1 H mg/dL
(0.6-1.0)
Glucose 128 H mg/dl
(70-99)
Lactic Acid 2.6 H mmol/L
(0.7-2.0)
Calcium 7.9 L mg/dl
(8.4-10.2)
Total Bilirubin 1.5 H mg/dl
(0.2-1.3)
AST 56 H U/L
(14-36)
Alkaline Phosphatase 225 H U/L
(38-126)
Troponin I 0.551 H* ng/ml
Total Protein 5.8 L g/dl
(6.3-8.2)
Albumin 2.4 L g/dl
(3.5-5.0)
09/04/24 17:06
09/04/24 17:06
Vital Signs
Initial and Last Documented VS:
Initial Vital Signs
Temp Pulse Resp BP Pulse Ox
99.4 F 145 18 81/56 97
09/04/24 16:58 09/04/24 16:58 09/04/24 16:58 09/04/24 16:58 09/04/24 16:58
Last Documented Vital Signs
Temp Pulse Resp BP Pulse Ox
99.4 F 130 20 107/65 96
09/04/24 16:58 09/04/24 19:45 09/04/24 19:45 09/04/24 19:45 09/04/24 18:23
<Davi Og PA-C - Last Filed: 09/04/24 20:01>
MDM/Problems Addressed
MDM/Problems Addressed:
After stroke alert was called the patient was taken promptly to CT at which time he was evaluated 1 occlusion on the right with some distal reconstitution. Decision was then made to discuss with neurointerventional list at tertiary care center,
initially had a discussion with [facility] who agreed with the treatment plan however recommended closer transport due to lack of flight capabilities. I then discussed the case with [facility], initially discussed with
the neurologist that [facility] however later then discussed with the team at [facility] who accepted the patient in transfer. Unfortunately transport delays due to lack of her availability resulted in extended time in the emergency department for
the patient. Patient's neurologic exam did improve with improvement in blood pressure, initial NIH of 24 down trended to an NIH of 9. Her neurologic exam did wax and wane however not improving beyond an NIH score of 9. Blood pressure was somewhat
fluctuating however did respond to IV fluids. She was also noted to be in rapid atrial fibrillation however opted not to rate control this to avoid further hypotensive issues. Transport crew arrived at 1950. She is not considered a TNK candidate
given Eliquis use however may be a candidate for thrombectomy given the large vessel occlusion
<Davi Og PA-C - Last Filed: 09/04/24 20:01>
*Critical Care Note
Total Time (30-74mins, 75-104mins- exclusive of procedures): 115 min
comment:
Critical care time: 115 minutes
Critical care time was exclusive of: Separately billable procedures, treating other patients, and teaching time
Critical care was necessary to treat or prevent imminent or life-threatening deterioration of the following conditions: Large vessel stroke, hypotension
Critical care time spent personally by me on the following activities:
[x] Review of old charts
[x] Obtaining history from patient or surrogate
[x] Ordering and review of the laboratory studies
[x] Ordering and review of radiographic studies
[x] Ordering and performing treatments and interventions
[x] Patient patient's response to treatment
[x] Development of treatment plan with patient or surrogate
<Davi Og PA-C - Last Filed: 09/04/24 20:01>
Update Note
Update Note:
1734: Case d/w neuro attending at [facility], imaging reviewed. Recommends transfer to closer receiving center given that flight transport not available due to weather.
1753: Case reviewed w/ neuro attending at [facility], tentatively accepts [facility] to [facility] however again, due to ground transport time, I have requested consultation with [facility] neuro team.
1800: No repsonse yet from [facility]. check services clerk will work on transport. Pt with gradually decreasing BP, still w/ MAP of 80. Will consider levophed if BP continues to decline
1811: Case d/w neuro attending at [facility] Dr [facility]. Accepts transfer. Recommends goal BP >100 systolic. Awaiting transport
ED Attending Note
<Davi Og PA-C - Last Filed: 09/04/24 20:01>
-
Portions of this chart may have been created with voice recognition software.� Occasional wrong word or��sound alike� substitutions may have occurred due to the inherent limitations of voice recognition software.
<Silas Stevenson DO - Last Filed: 09/04/24 19:40>
ED Attending Note
Patient seen and examined by attending physician: Yes
I performed the substantive portion of visit, reviewed & personally made and approve the management plan that is documented in note by myself or FRED.: Yes
ED Attending Note:
Seen with PA agree with assessment and plan complicated history AF on anticoagulation orthostatic hypotension presents with hemiplegia apparently after dialysis she has M1 occlusion, plan will be transferred to facility capable of possibly
intervening
Discharge Plan
Departure
Patient Disposition: Acute Care Hospital
Date of Disposition: 09/04/24
Time of Disposition: 17:23
Discharge Problem:
Stroke
Prescriptions:
No Action
sennosides [senna] 8.6 mg Tablet
17.2 mg PO DAILY
acetaminophen [Tylenol] 325 mg Tablet
650 mg PO Q6HPRN PRN (Reason: mild pain)
lidocaine 4 % Adhesive Patch,Medicated
1 patch TOPICAL DAILY
cetirizine [Zyrtec] 10 mg Tablet
10 mg PO HS
ondansetron HCl 8 mg Tablet
8 mg PO Q6HPRN PRN (Reason: nausea)
simethicone [Gas-X Extra Strength] 125 mg Capsule
125 mg PO Q6HPRN PRN (Reason: gas pain)
potassium chloride 10 mEq Tablet Extended Release
30 meq PO DAILY
famotidine [Pepcid] 20 mg Tablet
20 mg PO HS
docusate sodium [Colace] 100 mg Capsule
100 mg PO BID
bisacodyl [Dulcolax (bisacodyl)] 5 mg Tablet,Delayed Release (Dr/Ec)
10 mg PO DAILY
nystatin 100,000 unit/gram Powder
1 applic TOPICAL TID
sorbitol 70 % Solution
30 ml PO DAILYPRN PRN (Reason: constipation)
midodrine 10 mg Tablet
10 mg PO MOWEFR PRN (Reason: BP < 90/60)
Rx Instructions:
take 1 hour before dialysis
midodrine 10 mg Tablet
10 mg PO TID
pregabalin [Lyrica] 75 mg Capsule
75 mg PO Q48H
Eliquis 5 mg Tablet
5 mg PO BID
duloxetine 60 mg Capsule, Delayed Rel Sprinkle
60 mg PO DAILY
tramadol 25 mg Tablet
25 mg PO Q6HPRN PRN (Reason: moderate pain)
loperamide [Imodium A-D] 2 mg Tablet
2 mg PO Q6H PRN (Reason: diarrhea)
potassium chloride [Klor-Con 10] 10 mEq Tablet Extended Release
10 meq PO HS
levothyroxine 112 mcg Tablet
112 mcg PO DAILY
diltiazem HCl 240 mg Capsule,Extended Release 24hr
240 mg PO DAILY 30 Days Qty: 30 0RF
miconazole nitrate [Miconazorb AF] 2 % Powder
1 applic topical BID 7 Days Qty: 9 0RF
Hospital Transfer
Other hospital: [facility]
I certify that the patient requires transfer: Yes
Discussed case with accepting physician: Xiao
Reason for transfer: higher level of care
Interventions
Interventions:
*Risk Screen - Suicide Last Done: 09/04/24 17:50
*General Assessment Last Done: 09/04/24 17:38
*Neglect/Abuse Screening Last Done: 09/04/24 17:50
*ED COVID-19 Vaccine History Last Done: 09/04/24 17:40
ED- Pulmonary Assessment Last Done: 09/04/24 18:23
ED- Neurological Assessment Last Done: 09/04/24 18:03
ED Swallowing Screen Last Done: 09/04/24 18:22
Discharge Date and Time
Print Language: BELARUSIAN
--- NOTE | 2024-09-04 17:24 | CON.NEURO ---
Neuro Assessment/Plan
Assessment
head CT imgs rev'd, no bleed
CTA head and neck, imgs rev'd, short segment of occlusion right M1; there is distal reconstitution
Plan
Acute right MCA stroke with LVO, not a TNK candidate on eliquis, would transfer to [place] for thrombectomy
hypotension would bolus IV fluids, and possible pressors
Consultation
Order
Date of Consultation: 09/04/24
Requesting Provider:
Reason for Consult:
Subjective/Objective
Subjective Data
Date of Service: September 04, 2024
Objective Data
Lab Results
09/04/24 17:06
Patient Allergies
No Known Allergies Allergy (Unverified 05/15/24 12:12)
CVA Assessment
Onset of Stroke Symptoms
Date of onset of symptoms: 09/04/24
Time of onset of symptoms: 15:45
Date last time pt seen normal: 09/04/24
Time last time pt seen normal: 14:00
NIH Stroke Score
Level of Consciousness: 2 - Obtunded
LOC Questions: 2-Neither correct
LOC Commands: 2-Performs neither correctly
Best Horizontal Gaze: 2-Total gaze palsy
Visual Pino: 0=Normal, no visual loss
Facial Palsy: 3=Complete paralysis
Motor - Right Arm: 0=No drift 10 seconds
Motor - Left Arm: 4=No movement
Motor - Right Le-No drift 5 seconds
Motor - Left Le-None vs. gravity
Limb Ataxia: 0-Absent
Sensation: 2-Severe loss
Best Language: 3-Mute/global aphasia
Dysarthria: 0-Normal
Extinction and Inattention: 2-Total vijaya inattention
NIH Total Score:: 25
Tenecteplase Contraindications
Inclusion and Exclusion criteria reviewed: Yes
Reasons for NON-Tx with Thrombolytics ABSOLUTE Exclusions: Patient taking oral anticoagulant and last dose within 48 hours
Physical Exam
-
obtunded, briefly opens eyes to voice
nonverbal, inconsistently following commands, shakes head yes/no to answer
forced right gaze deviation cannot be overcome
dense left hemiparesis, slight movement in ankles/toes
Medications
-
Home Medications
�Medication �Instructions �Recorded
acetaminophen 325 mg tablet 650 mg PO Q6HPRN PRN mild pain 05/15/24
(Tylenol)
apixaban 5 mg tablet (Eliquis) 5 mg PO BID Blood Clot 05/15/24
Prevention/Tx
bisacodyl 5 mg tablet,delayed 10 mg PO DAILY Constipation 05/15/24
release (Dulcolax (bisacodyl))
cetirizine 10 mg tablet (Zyrtec) 10 mg PO HS Allergies 05/15/24
docusate sodium 100 mg capsule 100 mg PO BID Constipation 05/15/24
(Colace)
duloxetine 60 mg capsule,delayed 60 mg PO DAILY 05/15/24
release sprinkle depression/anxiety/pain
famotidine 20 mg tablet (Pepcid) 20 mg PO HS Gastrointestinal Issue 05/15/24
lidocaine 4 % topical patch 1 patch topical DAILY left shoulder 05/15/24
midodrine 10 mg tablet 10 mg PO MOWEFR PRN BP < 90/60 05/15/24
midodrine 10 mg tablet 10 mg PO TID orthostatic 05/15/24
hypotension
nystatin 100,000 unit/gram topical 1 applic topical TID breats, 05/15/24
powder belly, groin
ondansetron HCl 8 mg tablet 8 mg PO Q6HPRN PRN nausea 05/15/24
potassium chloride 10 mEq 30 meq PO DAILY Electrolyte 05/15/24
tablet,extended release Repletion
pregabalin 75 mg capsule (Lyrica) 75 mg PO Q48H neuropathic pain 05/15/24
sennosides 8.6 mg tablet (senna) 17.2 mg PO DAILY Constipation 05/15/24
simethicone 125 mg capsule (Gas-X 125 mg PO Q6HPRN PRN gas pain 05/15/24
Extra Strength)
sorbitol 70 % solution 30 ml PO DAILYPRN PRN constipation 05/15/24
tramadol 25 mg tablet 25 mg PO Q6HPRN PRN moderate pain 05/15/24
levothyroxine 112 mcg tablet 112 mcg PO DAILY 08/17/24
loperamide 2 mg tablet (Imodium 2 mg PO Q6H PRN diarrhea 08/17/24
A-D)
potassium chloride 10 mEq 10 meq PO HS 08/17/24
tablet,extended release (Klor-Con)
diltiazem HCl 240 mg 240 mg PO DAILY 30 days #30 caps 08/22/24
capsule,extended release 24 hr
miconazole nitrate 2 % topical 1 applic topical BID 7 days #9 08/22/24
powder (Miconazorb AF) grams
[2024-09-04 17:29] LABS: Lactic Acid 2.6 mmol/L (0.7-2.0)
[2024-09-04 17:33] LABS: ALT (SGPT) 35 U/L (0-35); AST (SGOT) 56 U/L (14-36); Albumin 2.4 g/dl (3.5-5.0); Alkaline Phosphatase 225 U/L (38-126); Blood Urea Nitrogen 14 mg/dl (7-17); Calcium 7.9 mg/dl (8.4-10.2); Carbon Dioxide 29 mmol/L (22-30); Chloride 103 mmol/L (98-107); Glucose 128 mg/dl (70-99); Potassium 3.3 mmol/L (3.5-5.1); Sodium 133 mmol/L (135-145); Total Bilirubin 1.5 mg/dl (0.2-1.3); Total Protein 5.8 g/dl (6.3-8.2); eGFR 27.14
[2024-09-04 17:47] LABS: Troponin I 0.551 ng/ml
[2024-09-04] MEDS: NSS 500 IV (19:15)
== END 2024-09-04 20:05 | disposition short-term general hospital (02) ==
LOC: EMR 16:50
PROVIDERS: Physician Assistant; EMERGENCY PHYSICIAN Emergency Medicine; FAMILY PHYSICIAN Internal Medicine; OTHER PHYSICIAN Psychiatry & Neurology Clinical Neurophysiology
DX: I63.541 Cerebral infarction due to unspecified occlusion or stenosis of right cerebellar artery (principal); R29.810 Facial weakness; G81.94 Hemiplegia, unspecified affecting left nondominant side; R47.01 Aphasia; E11.22 Type 2 diabetes mellitus with diabetic chronic kidney disease; N18.6 End stage renal disease; E66.01 Morbid (severe) obesity due to excess calories; I48.91 Unspecified atrial fibrillation; Z99.2 Dependence on renal dialysis; Z79.01 Long term (current) use of anticoagulants; Z79.4 Long term (current) use of insulin; Z79.890 Hormone replacement therapy
CPT/HCPCS: 99291; 99292 ×2; 70450; 70496; 70498; 80053; 82805; 83605; 84484; 85025; 86850; 86900; 86901; 93005; Q9967